=== PATIENT | female | born 1945 | race Caucasian/White ===

== ENCOUNTER 2022-12-04 09:12 | Inpatient (IN) | payer OTHER ==
--- OUTSIDE RECORDS SUMMARY | 2022-12-04 09:15 | XMS REPORT | Continuity of Care Document ---
:1945 Author Organization [facility] t Address [address] [place] [id number] Care Team Providers Name Role Phone SAURABH WHITESIDE Attending Clinician Unavailable SAURABH WHITESIDE Attending Clinician Unavailable Payers Payer Name Policy Type Policy Number Effective Date Expiration Date S nolberto MEDICARE PART A [id number] 2010 \T\ B 00:00:00 MEDICAID OF [place] [id number] 2017 00:00:00 Problems This patient has no known problems. Allergies, Adverse Reactions, Alerts Allergy Allergy Status Severity Reaction(s) Onset Inactive Treating Comm ents Source Name Type Date Date Clinician CODEINE DRUG Active Other-Cmnt Unive rs INGREDI 8-20 ity of 00:00: [address] DULOXETI DRUG Active Other-Cmnt 0 Univ ers NE INGREDI 8-20 ity of 00:00: [address] ERYTHROM DRUG Active Other-Cmnt Univ ers YCIN 8-20 ity of 00:00: [address] Medications This patient has no known medications. Procedures This patient has no known procedures. Encounters Start End Encounter Admission Attending Care Care Encounter Source Date/Time Date/Time Type Type Clinicians Facility Department ID 2020-01-25 2020-01-25 Outpatient SAURABH PEREZ [facility] [id number] [facility] 14:20:00 14:20:00 SAURABH WHITESIDE [facility] 2020-01-25 2020-01-25 Outpatient SAURABH PEREZ [facility] [id number] [facility] 14:20:00 14:20:00 SAURABH WHITESIDE [facility] Results This patient has no known results.
[2022-12-04] MEDS ORDERED: NA CHLORIDE 0.9% 1,000 ML ONE (09:59)
[2022-12-04 10:02] LABS: Absolute Lymphocytes (CBC) 0.5 K/uL (0.7-4.9); Hematocrit 35.8 % (36.0-45.0); Lymphocytes % 4.6 % (15.3-44.8); MCV 91.6 fL (80-100); MPV 9.8 fL (7.6-11.3); Platelets 131 thou/uL (152-406); RBC Red Blood Cell Count 3.91 M/uL (3.86-4.86)
[2022-12-04 10:03] LABS: Protime INR 1.1
[2022-12-04] MEDS ORDERED: FOLIC ACID 5 MG/ML VIAL ONE ×2 (10:04→10:07)
[2022-12-04] MEDS ORDERED: CEFTRIAXONE 1000 MG/VIAL ONE (10:04)
--- NOTE | 2022-12-04 10:10 | RAD REPORT ---
EXAM DESCRIPTION: CT - Head C Spine Cap Wo Con - 12/04/2022 9:53 am CLINICAL HISTORY: Trauma, head and neck injury. Chest, abdomen and pelvis pain. DECLINING STATE COMPARISON: No comparisons TECHNIQUE: CT head without contrast. CT cervical spine without contrast with coronal and sagittal reformatted images. CT chest, abdomen and pelvis without contrast with coronal and sagittal reformatted [facility] scans are performed using dose optimization technique as appropriate and may include automated exposure control or mA/KV adjustment according to patient size. FINDINGS: CT HEAD WITHOUT CONTRAST: No intracranial hemorrhage, hydrocephalus or extra-axial fluid collection. Mild generalized brain atr ophy is present with moderate periventricular and deep white matter chronic microvascular ischemic ch anges. No areas of brain edema or midline shift. The paranasal sinuses and mastoids are clear. The calvarium is intact. CT CERVICAL SPINE WITHOUT CONTRAST: No fracture or subluxation. Moderate multilevel cervical degenerative changes. The prevertebral soft tissues are normal in thickness. CT CHEST, ABDOMEN, PELVIS WITHOUT CONTRAST: NOTE: Lack of contrast is a significant limitation in the assessment of trauma related findings. Spec ifically, solid organ, vascular and bowel evaluation is significantly limited. The lungs are clear.No pneumothorax or pericardial/pleural fluid. No evidence of intra-abdominal visceral injury, free fluid or free air is seen within the above detai led limitations. Tiny nonobstructing right renal calculus. Prominent stool throughout the colon. No fractures. Grade 1 anterolisthesis of L4 on 5. IMPRESSION: Negative for acute traumatic findings within the above detailed limitations.
[2022-12-04 10:30] LABS: Renal Epithelial <5 /HPF (None Seen); Specific Gravity 1.011 (1.005-1.030); Urine Bacteria <20 /HPF (<20); Urine Bilirubin NEGATIVE (Negative); Urine Blood 2+ (Negative); Urine Clarity Extremely Turbid (Clear); Urine Color Yellow (Yellow); Urine Glucose NEGATIVE (Negative); Urine Mucus Slight /HPF (None Seen); Urine Protein 1+ (Negative); Urine Urobilinogen Normal (Normal); Urine WBC Clump Moderate /HPF (None Seen)
[2022-12-04 10:31] LABS: SARS-CoV-2 Antigen Rapid Res Negative (Negative)
[2022-12-04 10:32] LABS: AST/SGOT 21 U/L (15-37); Albumin 2.6 g/dL (3.4-5.0); Alkaline Phosphatase 113 U/L (45-117); BUN Blood Urea Nitrogen 27 mg/dL (7-18); Bicarbonate 24 mEq/L (21-32); Bilirubin Direct 0.4 mg/dL (0-0.2); Bilirubin Indirect, Calculated 0.4 mg/dL (0.2-0.8); Bilirubin Total 0.8 mg/dL (0.2-1.0); Glomerular Filtration Rate 48 ml/min (=/>90); Glucose Level 127 mg/dL (74-106); Lipase 10 U/L (13-75); NT PRO-BNP 245 pg/mL (<450); Protein, Total 6.8 g/dL (6.4-8.2); Sodium Level 139 mEq/L (136-145)
[2022-12-04 10:36] LABS: ALT/SGPT < 10 U/L (13-56)
--- NOTE | 2022-12-04 10:43 | RAD REPORT ---
EXAM DESCRIPTION: RAD - Chest Single View - 12/04/2022 10:33 am CLINICAL HISTORY: COUGH Chest pain. COMPARISON: <Comparisons> FINDINGS: Portable technique limits examination quality. The lungs are underinflated resulting in vascular crowding. The heart is mildly enlarged in size. No displaced fractures. IMPRESSION: Mildly underinflated lungs resulting in vascular crowding.
--- NOTE | 2022-12-04 11:14 | ER ---
Nurse's Notes [facility] Name: Sara Man Age: 77 yrs Sex: Female : 1945 Arrival Date: 12/04/2022 Time: 09:12 Bed 8 Private MD: Diagnosis: Altered mental status, unspecified;Dementia in other diseases classified elsewhere without behavioral disturbance;UTI/ Urinary tract infection, site not specified Presentation: 12/04 09:20 Chief complaint: EMS states: EMS was called to [facility] for a patient who ko1 had been experiencing altered mental status for the past 4 days, today seemed worse according to staff at [facility]. She is usually awake and alert, oriented x 3 and feeds herself. The past 4 days she has been confused and occasionally lethargic. Coronavirus screen: At this time, the client does not indicate any symptoms associated with coronavirus-19. Ebola Screen: No symptoms or risks identified at this time. Initial Sepsis Screen: Does the patient meet any 2 criteria? Altered Mental Status. No. Patient's initial sepsis screen is negative. Does the patient have a suspected source of infection? No. Patient's initial sepsis screen is negative. Risk Assessment: Do you want to hurt yourself or someone else? Patient reports no desire to harm self or others. Onset of symptoms is unknown. 09:20 Method Of Arrival: EMS: [facility] ko1 09:20 Acuity: IZABELA 3 ko1 Triage Assessment: 10:09 General: Appears ill, Behavior is anxious, uncooperative. Pain: Unable to use pain ko1 scale. Patient is disoriented. Neuro: Level of Consciousness is awake, alert, confused. Historical: - Allergies: 09:22 Codeine; ll1 09:22 Erythromycin; ll1 - PMHx: 09:22 GERD; depressive disorder; Dementia; Chronic pain; hemiplegia; Anxiety; Parkinson's ll1 disease; - Immunization history:: Adult Immunizations unknown. - Social history:: Smoking status: unknown. Screenin:20 [facility] ED Fall Risk Assessment (Adult) History of falling in the last 3 months, ko1 including since admission No falls in past 3 months (0 pts) Confusion or Disorientation Yes (5 pts) Intoxicated or Sedated No (0 pts) Impaired Gait Yes (1 pt) Mobility Assist Device Used Yes (1 pt) Altered Elimination Yes (1 pt) Score/Fall Risk Level 3 or more points = High Risk Oriented to surroundings, Maintained a safe environment, Educated pt \T\ family on fall prevention, incl call for assistance when getting out of bed, Assessed \T\ reinforced patient's understanding of fall precautions, Provided non-skid footwear, Hourly rounding (assess needs \T\ fall precautionary measures) done, Used ambulatory aids as needed (educated on \T\ assisted with), Used gait belt as appropriate Implemented a Fall Risk Plan of Care, Apply high fall risk patient identification: yellow non skid footwear/ fall signage, Remained with patient while ambulating, Utilized family, sitter, or virtual hot bread baker as indicated. Abuse screen: Denies threats or abuse. Denies injuries from another. Nutritional screening: No deficits noted. Tuberculosis screening: No symptoms or risk factors identified. Assessment: 09:20 Pain: Unable to use pain scale. Patient is disoriented. Neuro: Level of Consciousness ko1 is confused. Cardiovascular: No deficits noted. Respiratory: Respiratory effort is even, Respiratory pattern is regular, Breath sounds with wheezes bilaterally. GI: No deficits noted. : incontinent. EENT: Oral mucosa is dry. Derm: redness under breasts. Musculoskeletal: bilateral legs stiff. 10:35 Reassessment: Patient is sleeping, O2 sats are 90%, placed patient on 2L NC. ko1 10:45 Reassessment: Sats are now 96%. ko1 11:47 Reassessment: Patient appears in no apparent distress at this time. No changes from hb previously documented assessment. Vital Signs: 09:20 BP 121 / 65 RA Supine (auto/reg); Pulse 99; Resp 20; Temp 99.9(A); Pulse Ox 95% on R/A; ko1 10:35 BP 118 / 69; Pulse 85; Resp 18; Pulse Ox 90% ; ko1 10:44 Pulse Ox 96% on 2 lpm NC; ko1 11:47 BP 99 / 57; Pulse 73; Resp 15; Pulse Ox 97% on 2 lpm NC; hb ED Course: 09:19 Patient arrived in ED. ko1 09:20 Patient has correct armband on for positive identification. Placed in gown. Bed in low ko1 position. Call light in reach. Side rails up X2. Client placed on continuous cardiac and pulse oximetry monitoring. NIBP monitoring applied. personnel monitor on. Door closed. Noise minimized. Lights dimmed. Warm blanket given. 09:21 Cyrus Duke MD is Attending Physician. [facility] 09:22 Arm band placed on Patient placed in an exam room, on a stretcher. ll1 09:50 Maria A Interiano, RN is Primary Nurse. ko1 09:50 Urinalysis w/ reflexes Sent. ko1 09:50 Lipase Sent. ko1 09:50 Lactate w/ 2H reflex if indic. Sent. ko1 09:50 Blood Culture Adult (2) Sent. ko1 09:50 Inserted saline lock: 22 gauge in left hand, using aseptic technique. ko1 09:51 Basic Metabolic Panel Sent. ko1 09:51 CBC with Diff Sent. ko1 09:51 LFT's Sent. ko1 09:51 Magnesium Sent. ko1 09:51 NT PRO-BNP Sent. ko1 09:51 PT-INR Sent. ko1 09:51 Troponin HS Sent. ko1 09:54 CT Traumagram (Head C Spine CAP wo con) In Process Unspecified. EDMS 10:02 SARS RAPID Sent. ko1 10:02 Flu Sent. ko1 10:08 Triage completed. ko1 10:35 XRAY Chest (1 view) In Process Unspecified. EDMS 10:39 Urine Culture Sent. ko1 11:13 Amberly Prather MD is Hospitalizing Provider. [facility] 12:46 Provided Education on: na. ko1 12:46 No provider procedures requiring assistance completed. Patient admitted, IV remains in ko1 place. Administered Medications: 10:01 Drug: foLIC Acid IVPB 1 mg Route: IVPB; Site: left hand; ko1 10:02 Drug: NS 0.9% IV 500 ml Route: IV; Rate: bolus; Site: left hand; ko1 10:02 Drug: Rocephin IV 1 grams Route: IV; Rate: per protocol; Site: left hand; ko1 11:08 Drug: NS 0.9% IV 1000 ml Route: IV; Rate: 125 ml/hr; Site: left hand; ko1 Medication: 12:46 VIS not applicable for this client. ko1 Outcome: 11:13 Decision to Hospitalize by Provider. [facility] 12:46 Admitted to Med/surg accompanied by nurse, via stretcher, room 424, with chart, Report ko1 called to RAMIN Jalloh 12:46 Condition: stable 12:46 Instructed on the need for admit. 13:04 Patient left the ED. ko1 Signatures: Dispatcher [employer] EDCyrus Cavanaugh MD MD cha Baxter, Heather, RN RN Sonu Bill RN RN ll1 Maria A Interiano RN RN ko1 Corrections: (The following items were deleted from the chart) 11:48 11:47 BP 99 / 57; Pulse 73bpm; Resp 15bpm; Pulse Ox 97% RA; hb hb
--- NOTE | 2022-12-04 11:14 | EDPHYS ---
Physician Documentation [facility] Name: Sara Man Age: 77 yrs Sex: Female : 1945 Arrival Date: 12/04/2022 Time: 09:12 Bed 8 Private MD: ED Physician Cyrus Duke HPI: 12/04 11:07 This 77 yrs old Unknown Female presents to ER via EMS with complaints of Altered Mental melinda Status. 11:07 The patient presents with confusion, decreased mental status, trouble concentrating. melinda Onset: The symptoms/episode began/occurred 3 day(s) ago. Possible causes: CVA or TIA, head injury, low blood sugar, seizure, sepsis. Associated signs and symptoms: Pertinent positives: combativeness, confusion, dizziness. Current symptoms: In the emergency department the patient's symptoms are unchanged from the initial presentation, despite EMS interventions. Patient's baseline: Neuro: alert and fully oriented. It is unknown whether or not the patient has had similar symptoms in the past. Historical: - Allergies: 09:22 Codeine; ll1 09:22 Erythromycin; ll1 - PMHx: 09:22 GERD; depressive disorder; Dementia; Chronic pain; hemiplegia; Anxiety; Parkinson's ll1 disease; - Immunization history:: Adult Immunizations unknown. - Social history:: Smoking status: unknown. ROS: 11:09 Eyes: Negative for injury, pain, redness, and discharge, ENT: Negative for injury, melinda pain, and discharge, Neck: Negative for injury, pain, and swelling, Cardiovascular: Negative for chest pain, palpitations, and edema, Respiratory: Negative for shortness of breath, cough, wheezing, and pleuritic chest pain, Abdomen/GI: Negative for abdominal pain, nausea, vomiting, diarrhea, and constipation, Back: Negative for injury and pain, : Negative for injury, bleeding, discharge, and swelling, MS/Extremity: Negative for injury and deformity, Skin: Negative for injury, rash, and discoloration. 11:09 Constitutional: Positive for fever. 11:09 Neuro: Positive for altered mental status, weakness. Exam: 11:09 Constitutional: This is a well developed, well nourished patient who is awake, alert, melinda and in no acute distress. Head/Face: Normocephalic, atraumatic. Eyes: Pupils equal round and reactive to light, extra-ocular motions intact. Lids and lashes normal. Conjunctiva and sclera are non-icteric and not injected. Cornea within normal limits. Periorbital areas with no swelling, redness, or edema. ENT: Nares patent. No nasal discharge, no septal abnormalities noted. Tympanic membranes are normal and external auditory canals are clear. Oropharynx with no redness, swelling, or masses, exudates, or evidence of obstruction, uvula midline. Mucous membranes moist. Neck: Trachea midline, no thyromegaly or masses palpated, and no cervical lymphadenopathy. Supple, full range of motion without nuchal rigidity, or vertebral point tenderness. No Meningismus. Chest/axilla: Normal chest wall appearance and motion. Nontender with no deformity. No lesions are appreciated. Cardiovascular: Regular rate and rhythm with a normal S1 and S2. No gallops, murmurs, or rubs. Normal PMI, no JVD. No pulse deficits. Respiratory: Lungs have equal breath sounds bilaterally, clear to auscultation and percussion. No rales, rhonchi or wheezes noted. No increased work of breathing, no retractions or nasal flaring. Abdomen/GI: Soft, non-tender, with normal bowel sounds. No distension or tympany. No guarding or rebound. No evidence of tenderness throughout. Back: No spinal tenderness. No costovertebral tenderness. Full range of motion. Female : Normal external genitalia. Skin: Warm, dry with normal turgor. Normal color with no rashes, no lesions, and no evidence of cellulitis. MS/ Extremity: Pulses equal, no cyanosis. Neurovascular intact. Full, normal range of motion. Psych: Awake, alert, with orientation to person, place and time. Behavior, mood, and affect are within normal limits. 11:09 ECG was reviewed by the Attending Physician. 11:09 Neuro: Orientation: to person, Not oriented to place, time, situation, Mentation: confused, Memory: unable to test, Cranial nerves: no acute changes, CN II- XII are normal as tested, Cerebellar function: unable to test, Motor: moves all fours, Sensation: unable to test, Gait: not tested. seizure activity, is not displayed by the patient. Vital Signs: 09:20 BP 121 / 65 RA Supine (auto/reg); Pulse 99; Resp 20; Temp 99.9(A); Pulse Ox 95% on R/A; ko1 10:35 BP 118 / 69; Pulse 85; Resp 18; Pulse Ox 90% ; ko1 10:44 Pulse Ox 96% on 2 lpm NC; ko1 11:47 BP 99 / 57; Pulse 73; Resp 15; Pulse Ox 97% on 2 lpm NC; hb MDM: 09:21 Patient medically screened. melinda 11:11 Differential diagnosis: viral Infection, bacterial infection, URI, bronchitis, melinda pneumonia UTI, gastroenteritis, meningitis. Differential Diagnosis altered mental status, sepsis, flu. Differential Diagnosis: CVA, electrolyte abnormality, hypoglycemia, intracranial bleed, meningitis, overdose, pneumonia, seizure, sepsis, TIA, UTI, volume depletion. Data reviewed: vital signs, nurses notes, EMS record, lab test result(s), EKG, radiologic studies, CT scan, plain films. Consideration of Admission/Observation Escalation of care including admission/observation considered. I considered the following discharge prescriptions or medication management in the emergency department Medications were administered in the Emergency Department. See MAR. Test considered but Not performed: MRI: no mri brain. Care significantly affected by the following chronic conditions: Hypertension, gerd, depression, dementia, parkinsonism. Counseling: I had a detailed discussion with the patient and/or guardian regarding the historical points, exam findings, and any diagnostic results supporting the discharge/admit diagnosis, lab results, radiology results, the need for further work-up and treatment in the hospital. 12/04 09: Order name: Basic Metabolic Panel; Complete Time: 10:41 [facility] 12/04 09:31 Order name: CBC with Diff 12/04 09: Order name: LFT's; Complete Time: 10:41 [facility] 12/04 09:31 Order name: Magnesium; Complete Time: 10:41 [facility] 12/04 09:31 Order name: NT PRO-BNP; Complete Time: 10:41 [facility] 12/04 09:31 Order name: PT-INR; Complete Time: 10:41 [facility] 12/04 09:31 Order name: Troponin HS; Complete Time: 10:41 [facility] 12/04 09:31 Order name: Blood Culture Adult (2) [facility] 12/04 09: Order name: Lactate w/ 2H reflex if indic.; Complete Time: 10:41 [facility] 12/04 09:31 Order name: Lipase; Complete Time: 10:41 [facility] 12/04 09:31 Order name: Flu; Complete Time: 10:41 [facility] 12/04 09:31 Order name: SARS RAPID; Complete Time: 10:41 [facility] 12/04 09:45 Order name: Urinalysis w/ reflexes; Complete Time: 10:41 [facility] 12/04 10:38 Order name: Urine Culture [facility] 12/04 12:54 Order name: Manual Differential [facility] 12/04 09:31 Order name: XRAY Chest (1 view) [facility] 12/04 09:31 Order name: CT Traumagram (Head C Spine CAP wo con); Complete Time: 10:41 [facility] 12/04 09:31 Order name: EKG; Complete Time: 09:32 [facility] 12/04 09:31 Order name: Cardiac monitoring; Complete Time: 09:50 [facility] 12/04 09:31 Order name: EKG - Nurse/Tech; Complete Time: 10:25 [facility] 12/04 09:31 Order name: IV Saline Lock; Complete Time: 09:51 [facility] 12/04 09:31 Order name: Labs collected and sent; Complete Time: 09:51 [facility] 12/04 09:31 Order name: O2 Per Protocol; Complete Time: 09:51 [facility] 12/04 09:31 Order name: O2 Sat Monitoring; Complete Time: 09:51 [facility] EC:09 Rate is 88 beats/min. Rhythm is regular. QRS Pinnacle is Normal. VA interval is normal. QRS melinda interval is normal. QT interval is normal. No Q waves. T waves are Normal. No ST changes noted. Clinical impression: NSR w/ Non-specific ST/T Changes and No evidence of ischemia. Interpreted by me. Reviewed by me. Administered Medications: 10:01 Drug: foLIC Acid IVPB 1 mg Route: IVPB; Site: left hand; ko1 10:02 Drug: NS 0.9% IV 500 ml Route: IV; Rate: bolus; Site: left hand; ko1 10:02 Drug: Rocephin IV 1 grams Route: IV; Rate: per protocol; Site: left hand; ko1 11:08 Drug: NS 0.9% IV 1000 ml Route: IV; Rate: 125 ml/hr; Site: left hand; ko1 Disposition Summary: 12/04/22 11:13 Hospitalization Ordered Hospitalization Status: Inpatient Admission melinda Provider: Prather, Mohammad melinda Location: Telemetry/MedSurg (Inpatient) melinda Condition: Fair melinda Problem: new melinda Symptoms: have improved melinda Bed/Room Type: Standard melinda Room Assignment: 424(12/04/22 12:33) eb Diagnosis - Altered mental status, unspecified melinda - Dementia in other diseases classified elsewhere without behavioral disturbance melinda - UTI/ Urinary tract infection, site not specified melinda Forms: - Medication Reconciliation Form melinda - SBAR form melinda - Leadership Thank You Letter melinda Signatures: Dispatcher [employer] EDCyrus Cavanaugh MD MD cha Botello, Elizabeth eb Lewis, Lynsay, RN RN ll1 Maria A Interiano RN RN ko1 Corrections: (The following items were deleted from the chart) 12:33 11:13 melinda eb
[2022-12-04 12:53] LABS: Blood Morphology Comment NOT SEEN (NOT SEEN); Platelet Estimate DECR
--- NOTE | 2022-12-04 12:56 | P.HP ---
Certification for Inpatient Patient admitted to: Inpatient With expected LOS: <2 Midnights Practitioner: I am a practitioner with admitting privileges, knowledge of patient current condition, hospital course, and medical plan of care. Services: Services provided to patient in accordance with Admission requirements found in Title 42 Section 412.3 of the Code of Federal Regulations Patient History Date of Service: 12/04/22 Reason for admission: AMS, UTI History of Present Illness: 76-year-old female with a history of dementia, depression, chronic pain, hemiplegia, anxiety, GERD, Parkinson's disease, Came to the ER with complaints of altered mental status confusion and decreased mental status trouble concentrating started 3 days ago. Patient is negative for injury or fall. No shortness of breath, cough, fever, wheezing, chest pain. ER course vital signs blood pressure 121/65, pulse 99, respiration 20, temperature 99.9, pulse ox 95% on room air. EKG shows sinus rhythm without no arrhythmia, QRS axis is normal, TX interval is normal, QRS interval is normal QT interval is normal no Q wave changes, T waves are normal. No ST changes noted. Laboratory reports WBC 11.5 platelets 131, sodium 139 potassium 4 chloride 108, BUN 28, creatinine 1.17, GFR 48 blood sugar 127, positive urine analysis. Patient was given Rocephin 1 g IV in the ER and normal saline [address] head C-spine without contrast shows no fracture, moderate multilevel cervical degenerative changes. Negative for acute traumatic findings . Planning to admit the patient with a diagnosis of altered mental status, acute cystitis. Allergies codeine Allergy (Unverified 09/15/16 23:55) Unknown Erythromycin Allergy (Uncoded 09/15/16 23:55) Unknown Home medications list reviewed: Yes - Past Medical/Surgical History Diabetic: No -: GERD -: Parkinson's disease -: Dementia -: Impression and anxiety -: Chronic pain Review of Systems 10-point ROS is otherwise unremarkable General: Fever, Weakness Eyes: Unremarkable Respiratory: Unremarkable Neurological: Weakness, Confusion (Confusion, decreased mental status, trouble concentrating) Physical Examination - Physical Exam General: Alert, In no apparent distress HEENT: Atraumatic, Normocephalic, PERRLA Neck: Supple, 2+ carotid pulse no bruit Respiratory: Clear to auscultation bilaterally, Normal air movement Cardiovascular: Normal pulses, Regular rate/rhythm, Normal S1 S2, Edema (Edema 1+ on the lower extremities) Capillary refill: <2 Seconds Gastrointestinal: Normal bowel sounds, Soft and benign Integumentary: No rashes, No erythema Neurological: Dementia Urinary: Quiros catheter (Dark yellow urine draining in the Quiros cath) - Studies Laboratory Data (last 24 hrs) 12/04/22 12/04/22 12/04/22 09:40 09:40 09:40 WBC 11.50 H Hgb 12.3 Hct 35.8 L Plt Count 131 L PT 12.1 INR 1.10 Sodium 139 Potassium 4.0 BUN 27 H Creatinine 1.17 H Glucose 127 H Magnesium 2.0 Total Bilirubin 0.8 AST 21 ALT < 10 L Alkaline Phosphatase 113 Lipase 10 L Microbiology Data (last 24 hrs): 12/04/22 10:00 Nasopharnyx Influenza Type A Antigen Screen - Final 12/04/22 10:00 Nasopharnyx Influenza Type B Antigen Screen - Final Assessment and Plan - Plan Assessment and plan * Altered mental status, * Acute cystitis. 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 Dementia Assessment and plan * Altered mental status acute * Acute cystitis. 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 Urine analysis positive initially. Started on antibiotics and IV fluids. Pending blood and urine cultures. Will admit the patient for close monitoring. Repeat the CBC in the morning * GERD * Depression and anxiety * Parkinson's disease. Dementia Chronic, controlled on medications. Resume the home medications CODE STATUS full code DVT prophylaxis ordered Diet ordered 76-year-old female with a history of dementia depression chronic pain hemiplegia anxiety GERD Parkinson's disease. Came to the ER with complaints of ER course vital signs blood pressure 121/65, pulse 99, respiration 20, temperature 99.9, pulse ox 95% on room air. EKG shows sinus rhythm without no arrhythmia, QRS axis is normal, TX interval is normal, QRS interval is normal QT interval is normal no Q wave changes, T waves are normal. No ST changes noted. Laboratory reports WBC 11.5 platelets 131, sodium 139 potassium 4 chloride 108, BUN 28, creatinine 1.17, GFR 48 blood sugar 127, positive urine analysis. Patient was given Rocephin 1 g IV in the ER and normal saline [address] head C-spine without contrast shows no fracture, moderate multilevel cervical degenerative changes. Negative for acute traumatic findings . Planning to admit the patient with a diagnosis of altered mental status, dementia Discharge Plan: Jail Plan to discharge in: 48 Hours - Advance Directives Does patient have a Living Will: No Does patient have a Durable POA for Healthcare: No - Code Status/Comfort Care Code Status Assessed: Yes (Full code) Code Status: Full Code Physician Review: Patient Assessed, Agree with Above Assessment and Plan Critical Care: No Time Spent Managing Pts Care (In Minutes): 55 (minutes)
[2022-12-04 14:02] VITALS: BMI 33.5
[2022-12-04] MEDS ORDERED: CARBIDOPA/LEVODOPA 25/250 TAB PO ONE (16:00)
--- NOTE | 2022-12-04 17:20 | RAD REPORT ---
EXAM DESCRIPTION: RAD - Chest Single View - 12/04/2022 5:09 pm CLINICAL HISTORY: sob Chest pain. COMPARISON: Chest Single View dated 12/04/2022 FINDINGS: Portable technique limits examination quality. Mild interstitial pulmonary edema is present. The heart is mildly enlarged in size. 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 IMPRESSION: Mild CHF.
[2022-12-04] MEDS: NA CHLORIDE 0.9% 1,000 ML IV SCH (18:46)
[2022-12-04] MEDS ORDERED: CARBIDOPA/LEVODOPA 25/100 TAB PO SCH (21:00)
[2022-12-05] MEDS ORDERED: POLYVINYL ALCOHOL 1.4% 15 ML OPTH PRN (00:45)
[2022-12-05] MEDS ORDERED: ONDANSETRON 4 MG (ODT) TAB PO PRN (01:00)
[2022-12-05] MEDS: POTASSIUM CL SA 10 MEQ TAB PO SCH ×2 (08:00→16:29)
[2022-12-05] MEDS: CALCIUM CARB 500MG/VIT D 200 IU TAB PO SCH (08:23)
[2022-12-05] MEDS: CARBIDOPA/LEVODOPA 25/100 TAB PO SCH ×4 (08:23→21:18)
[2022-12-05] MEDS: TRAMADOL HCL 50 MG TAB PO SCH ×4 (08:23→21:14)
[2022-12-05] MEDS: MELOXICAM 7.5 MG TAB PO SCH (08:23)
[2022-12-05] MEDS ORDERED: CEFTRIAXONE 1,000 MG in NA CHLORIDE 0.9% 50 ML IVPB SCH (09:00)
[2022-12-05] MEDS ORDERED: OXYMETAZOLINE HCL NS SCH (09:00)
[2022-12-05] MEDS: NALOXONE HCL PO SCH ×2 (09:00→21:00)
[2022-12-05] MEDS ORDERED: MAGNESIUM HYDROXIDE 8% 30 ML PO PRN (09:00)
[2022-12-05] MEDS: PENTAZOCINE HCL PO SCH ×2 (09:00→21:00)
[2022-12-05] MEDS ORDERED: BACLOFEN 10 MG TAB PO ONE (15:19)
[2022-12-05] MEDS ORDERED: METHYLPREDNISOLONE 125 MG INJ IV ONE (15:20)
[2022-12-05] MEDS: NA CHLORIDE 0.9% 1,000 ML IV SCH (16:11)
--- NOTE | 2022-12-05 20:32 | P.PN ---
Subjective Date of Service: 12/05/22 Patient is a very pleasant 77-year-old female with a history of Parkinson disease who apparently lives at [facility] and she is able to feed herself with her right hand. She is also able to communicate effectively. She apparently had not taken her medications and got very aphasic and was not comm unicating. Patient became very stiff as well. Patient will show was sent to our emergency room for further evaluation. When I saw her on the floor she was just saying anything. Her arms were stiff and bent around her chest area. She was not able to move nor was she able to answer any questions. I asked the nurse to go ahead and give her her Parkinson's medications immediately. We crushed it and were able to put it in her mouth and she was able to take it down. A few hours later she started becoming more interactive and started moving a little bit better. Her upper extremities are still very stiff and we will get neurology to see the patient and make further recommendations. But patient cannot go without her Parkinson's medication. She also has a urinary tract infection. She will be on IV fluids and IV antibiotics. Patient was admitted to the hospital for further treatment. Review of Systems is unable to be obtained Physical Examination - Vital Signs Temperature: 97.7 F Blood Pressure: 130/60 Pulse: 89 Respirations: 16 Pulse Ox (%): 94 - Physical Exam General: Alert, In no apparent distress, Demented, Confused HEENT: Atraumatic, PERRLA, EOMI Neck: Supple, JVD not distended Respiratory: Clear to auscultation bilaterally, Normal air movement Cardiovascular: Regular rate/rhythm, Normal S1 S2, No murmurs Gastrointestinal: Normal bowel sounds, Soft and benign, Non-distended, No tenderness Musculoskeletal: No clubbing, No swelling, No tenderness Integumentary: No rashes Neurological: Sensation intact, Cranial nerves 3-12 intact, Other (Patient is interacting much more today. She still not able to feed herself so we will try to get her her baclofen as well as her Parkinson's medications. We will reassess her in the morning. Physical therapy and neurology input as well.), Abnormal speech Lymphatics: No axilla or inguinal lymphadenopathy - Studies Microbiology Data (last 24 hrs): 12/04/22 09:35 Blood - Blood Blood Culture Gram Stain - Final 12/04/22 09:35 Blood - Blood Gram Stain - Final 12/04/22 09:50 Blood - Blood Blood Culture Gram Stain - Final 12/04/22 09:50 Blood - Blood Gram Stain - Final Medications List Reviewed: Yes Assessment & Plan - Problems (Diagnosis) (1) Altered mental status Current Visit: Yes Status: Acute (2) History of Parkinson's disease Current Visit: Yes Status: Acute (3) Urinary tract infection Current Visit: Yes Status: Acute (4) Dementia Current Visit: Yes Status: Acute - Plan Plan: 1. Gentle hydration 2. IV antibiotics 3. Resume Sinemet 4. Continue with baclofen 5. Diet as tolerated 6. Antihypertensives 7. Monitor renal function 8. Aspiration precautions 9. Supportive care/skin care 10. GI DVT prophylaxis Discharge Plan: Long Term Plan to discharge in: 48 Hours - Advance Directives Does patient have a Living Will: No Does patient have a Durable POA for Healthcare: No - Code Status/Comfort Care Code Status: Full Code Physician Review: Patient Assessed, Agree with Above Assessment and Plan Critical Care: No Time Spent Managing PTS Care (In Minutes): 30
[2022-12-05] MEDS: OXYMETAZOLINE HCL 0.05% 15ML NAS SCH (21:14)
[2022-12-05] MEDS: BACLOFEN 10 MG TAB PO SCH (21:15)
[2022-12-06 07:21] LABS: Absolute Lymphocytes (CBC) 0.6 K/uL (0.7-4.9); Hematocrit 32.8 % (36.0-45.0); Lymphocytes % 3.9 % (15.3-44.8); MCV 91.3 fL (80-100); MPV 9.5 fL (7.6-11.3); Platelets 166 thou/uL (152-406); RBC Red Blood Cell Count 3.59 M/uL (3.86-4.86)
[2022-12-06 07:23] LABS: Magnesium 2.7 mg/dL (1.6-2.4)
[2022-12-06] MEDS: Meropenem 1,000 MG in NA CHLORIDE 0.9% 100 ML IV SCH ×2 (08:50→21:12)
[2022-12-06] MEDS: OXYMETAZOLINE HCL 0.05% 15ML NAS SCH ×2 (08:51→21:13)
[2022-12-06] MEDS: POTASSIUM CL SA 10 MEQ TAB PO SCH ×2 (08:52→17:24)
[2022-12-06] MEDS: BACLOFEN 10 MG TAB PO SCH ×3 (08:52→21:13)
[2022-12-06] MEDS: MELOXICAM 7.5 MG TAB PO SCH (08:52)
[2022-12-06] MEDS: CALCIUM CARB 500MG/VIT D 200 IU TAB PO SCH (08:52)
[2022-12-06] MEDS: TRAMADOL HCL 50 MG TAB PO SCH ×4 (08:52→21:13)
[2022-12-06] MEDS: PENTAZOCINE HCL PO SCH ×2 (08:53→21:00)
[2022-12-06] MEDS: NALOXONE HCL PO SCH ×2 (08:53→21:00)
[2022-12-06] MEDS: CARBIDOPA/LEVODOPA 25/100 TAB PO SCH ×4 (08:58→21:13)
--- NOTE | 2022-12-06 10:47 | P.CNS ---
Date of Consult: 12/06/22 Reason for Consult: ESBL UTI Chief Complaint: AMS, UTI History of Present Illness: Patient is a 76-year-old female with a past medical history of Parkinson's disease, dementia, depression, chronic pain, hemiplegia who presented [facility] the emergency department from [facility] due to altered mental status and confusion which began 3 days prior to arrival. Urinalysis suggestive of UTI. Blood and urine cultures obtained. Patient was given a dose of Rocephin in the ED. Infectious disease consulted. Patient was found to have bacteremia secondary to urinary tract infection with E. coli ESBL. She was started on meropenem. Allergies codeine Allergy (Verified 12/04/22 18:27) Unknown Erythromycin Allergy (Uncoded 09/15/16 23:55) Unknown Home medications list reviewed: Yes Home Medications: Alendronate Sodium 1 tab PO 12/04/22 Aspirin Chewable [Aspirin Chewable*] 1 tab PO DAILY 12/04/22 Baclofen 10 mg PO QID 12/04/22 Calcium Carbonate/Vitamin D3 [Oscal 500 + Vit D 200 Iu Tab*] 1 tab PO DAILY 12/04/22 Carbidopa/Levodopa [Carbidopa-Levodopa 25-100 Tab] 1 tab PO ACHS 12/04/22 Dextran/Hypromellose/Glycerin [Artificial Tears 0.1-0.2-0.3%] 1 drop EACH EYE Q6H PRN 12/04/22 Mag Hydroxide 8% [Milk Of Magnesia*] 30 ml PO PRN PRN 12/04/22 Meloxicam [Mobic] 7.5 mg PO DAILY 12/04/22 Ondansetron [Zofran (Odt)*] 1 tab PO Q8HR 12/04/22 Oxymetazoline HCl [Nasal [place]] 2 spray NS BID 12/04/22 Pentazocine HCl/Naloxone HCl [Pentazocine-Naloxone Tablet] 1 tab PO BID 12/04/22 Polyethylene Glycol 3350 [Miralax] 17 gm PO DAILY PRN 12/04/22 Potassium Chloride 20 meq PO BID 12/04/22 Sennosides/Docusate Sodium [Docuzen 8.6-50 mg Tablet] 1 tab PO DAILY 12/04/22 Tramadol HCl [Ultram] 50 mg PO QID 12/04/22 - Past Medical/Surgical History Diabetic: No -: GERD -: Parkinson's disease -: Dementia -: Impression and anxiety -: Chronic pain - Social History Smoking Status: Unknown if ever smoked Place of Residence: [facility]ust[facility]ial Review of Systems General: Weakness Physical Examination Temp Pulse Resp BP Pulse Ox 97.0 F 89 16 148/95 H 90 L 12/06/22 08:00 12/06/22 08:00 12/06/22 08:52 12/06/22 08:00 12/06/22 08:52 General: In no apparent distress, Oriented x3 HEENT: Atraumatic, Other (missing teeth) Respiratory: Normal air movement (on 2L NC), Diminished Cardiovascular: No edema, Normal S1 S2 Gastrointestinal: Normal bowel sounds, Soft and benign Integumentary: No rashes Neurological: Other (tremors; hx parkinsons), Dementia Urinary: Quiros catheter (draining yellow urine) Laboratory Data - Reviewed Microbiology Data - Reviewed Imagings Data: - Reviewed Conclusions/Impression: Problem list Sepsis secondary to UTI Bacteremia, E.coli ESBL Parkinson's Disease Dementia Depression GERD E. coli ESBL Bacteremia secondary to urinary tract infection -Given dose of ceftriaxone on 12/05 -Blood cultures 12/04: Escherichia coli ESBL in 4 of 4 bottles - Urine culture 12/04: Escherichia coli ESBL -Currently on meropenem (started 12/06) -Leukocytosis (WBC 16.3). Afebrile Recommendations Bacteremia secondary to urinary tract infection. Due to ESBL organism, continue with carbapenem antibiotic for 10 to 14 days - Currently on meropenem, continue for 10 to 14 days. -Monitor WBC and fever trends -Supportive care and nutritional supplementation as needed Plan of care discussed with patient and her son at bedside. Case discussed with Suzette Matthew
[2022-12-06] MEDS: NA CHLORIDE 0.9% 1,000 ML IV SCH (12:03)
--- NOTE | 2022-12-06 14:16 | P.PN ---
Subjective Date of Service: 12/06/22 Chief Complaint: AMS, UTI No acute events overnight. She is alert and oriented x 3 this morning. She reports some right upper extremity rigidness, which she attributes to missing a dose of carbidopa-levodopa. She denies any chest pain, palpitations, or shortness of breath. Review of Systems 10-point ROS is otherwise unremarkable General: Malaise Physical Examination - Vital Signs Temperature: 97.0 F Blood Pressure: 123/86 Pulse: 79 Respirations: 16 Pulse Ox (%): 96 - Physical Exam General: Alert, In no apparent distress, Oriented x3 HEENT: Atraumatic, Mucous membr. moist/pink, Sclerae nonicteric Neck: JVD not distended Respiratory: Clear to auscultation bilaterally, Normal air movement Cardiovascular: No edema, Regular rate/rhythm, Normal S1 S2, No gallops, No rubs, No murmurs Gastrointestinal: Normal bowel sounds, Soft and benign, Non-distended, No tenderness, No rebound, No guarding Musculoskeletal: No clubbing Integumentary: No rashes Neurological: Normal speech, Normal affect - Studies Microbiology Data (last 24 hrs): 12/04/22 09:49 Catheterized Urine Hardin Count - Final >100,000 CFU/ML. 12/04/22 09:49 Catheterized Urine - Final Escherichia Coli Esbl Gram Neg Hipolito 12/04/22 09:50 Blood - Blood Aerobic Blood Culture - Final Gram Neg Hipolito Escherichia Coli Esbl 12/04/22 09:50 Blood - Blood Blood Culture Gram Stain - Final 12/04/22 09:50 Blood - Blood Anaerobic Blood Culture - Final Gram Neg Hipolito Escherichia Coli Esbl 12/04/22 09:50 Blood - Blood Gram Stain - Final 12/04/22 09:35 Blood - Blood Aerobic Blood Culture - Final Gram Neg Hipolito Escherichia Coli Esbl 12/04/22 09:35 Blood - Blood Blood Culture Gram Stain - Final 12/04/22 09:35 Blood - Blood Anaerobic Blood Culture - Final Gram Neg Hipolito Escherichia Coli Esbl 12/04/22 09:35 Blood - Blood Gram Stain - Final Medications List Reviewed: Yes Assessment And Plan - Plan # Sepsis secondary to ESBL Escherichia Coli Urinary Tract Infection with Bact eremia # Acute Toxic Metabolic Encephalopathy due to above - resolved He met sepsis criteria based on HR > 90 bpm, RR > 20 breaths/min, and WBC > 12,000, and the suspected source is a UTI with bacteremia. - Consulted Infectious Diseases and spoke with CYBER REVERSE ENGINEER Sgarbi - recommendations appreciated - Sepsis order set was initiated - Initial Lactate was 1.2 - Blood cultures: 06/29 ESBL E. Coli - Broad spectrum antibiotics started: Ceftriaxone -> Meropenem - In regards to fluids: - 30 mL/kg of IV fluids was not administered given SBP > 90, MAP > 65, lactic acid < 4 # Parkinson's Disease # Dementia - Consulted Neurology - recommendations appreciated - Continue carbidopa/levodopa # Depression and Anxiety # Gastroesophageal Reflux Disease - Reconcile home medications once verified Demario Oneill M.D.
--- NOTE | 2022-12-06 17:12 | EKG ---
Test Date: 2022-12-04 Test Time: 10:21:45 All Source Collection Manager: HB MEASUREMENT RESULTS: Intervals: Rate: 88 MT: 142 QRSD: 88 QT: 354 QTc: 428 Point Baker: P: 68 MT: 142 QRS: -20 T: -17 INTERPRETIVE STATEMENTS: Normal sinus rhythm T wave abnormality, consider anterior ischemia Abnormal ECG Electronically Signed On 12-06-22 17:06:56 CDT by Wilmer Ward
[2022-12-07 04:29] LABS: Absolute Lymphocytes (CBC) 1.1 K/uL (0.7-4.9); Hematocrit 33.6 % (36.0-45.0); Lymphocytes % 6.8 % (15.3-44.8); MCV 92.1 fL (80-100); MPV 9.2 fL (7.6-11.3); Platelets 162 thou/uL (152-406); RBC Red Blood Cell Count 3.65 M/uL (3.86-4.86)
[2022-12-07 05:17] LABS: Potassium 4.3 mEq/L (3.5-5.1)
[2022-12-07] MEDS: Mupirocin NASAL 2 APPL/1 GM TUBE NAS SCH ×2 (08:01→21:35)
[2022-12-07] MEDS: CARBIDOPA/LEVODOPA 25/100 TAB PO SCH ×4 (08:01→21:35)
[2022-12-07] MEDS: MELOXICAM 7.5 MG TAB PO SCH (08:01)
[2022-12-07] MEDS: CALCIUM CARB 500MG/VIT D 200 IU TAB PO SCH (08:02)
[2022-12-07] MEDS: POTASSIUM CL SA 10 MEQ TAB PO SCH ×2 (08:02→16:33)
[2022-12-07] MEDS: TRAMADOL HCL 50 MG TAB PO SCH ×4 (08:02→21:35)
[2022-12-07] MEDS: Meropenem 1,000 MG in NA CHLORIDE 0.9% 100 ML IV SCH ×2 (08:02→21:35)
[2022-12-07] MEDS: BACLOFEN 10 MG TAB PO SCH ×3 (08:02→21:35)
[2022-12-07] MEDS: OXYMETAZOLINE HCL 0.05% 15ML NAS SCH ×2 (08:03→21:36)
[2022-12-07] MEDS: NA CHLORIDE 0.9% 1,000 ML IV SCH (08:03)
[2022-12-07] MEDS: PENTAZOCINE HCL PO SCH ×2 (08:04→21:00)
[2022-12-07] MEDS: NALOXONE HCL PO SCH ×2 (08:04→21:00)
[2022-12-07 08:51] VITALS: O2SAT 95
--- NOTE | 2022-12-07 08:53 | P.PN ---
Date of Service: 12/07/22 Chief Complaint: AMS, UTI Subjective: Patient seen and examined at bedside. No new or worsening complaints. No acute events reported overnight. Continue current plan of care. Physical Examination Temp Pulse Resp BP Pulse Ox 97.0 F 88 18 146/86 H 95 12/07/22 08:00 12/07/22 08:00 12/07/22 08:00 12/07/22 08:00 12/07/22 08:00 General: In no apparent distress, Oriented x3 HEENT: Atraumatic. Neck supple. Respiratory: Normal air movement. Diminished. On 2L NC. Cardiovascular: No edema, Normal S1 S2 Gastrointestinal: Normal bowel sounds, Soft and benign Integumentary: No rashes Neurological: Tremors (hx parkinsons). Dementia Urinary: Quiros catheter draining yellow urine Laboratory Data - Reviewed Microbiology Data - Reviewed Imagings Data: - Reviewed Medications List: Reviewed Assessment and plan Problem list Sepsis secondary to UTI Bacteremia, E.coli ESBL Parkinson's Disease Dementia Depression GERD E. coli ESBL Bacteremia secondary to urinary tract infection -Given dose of ceftriaxone on 12/05 -Blood cultures 12/04: Escherichia coli ESBL in 4 of 4 bottles - Urine culture 12/04: Escherichia coli ESBL -Currently on meropenem (started 12/06) -Leukocytosis (WBC 16.6). Afebrile Recommendations Bacteremia secondary to urinary tract infection. Due to ESBL organism, continue with carbapenem antibiotic for 14 days. (12/06-12/20) - Currently on meropenem -Monitor WBC and fever trends -Supportive care and nutritional supplementation as needed - Pressure offloading measures. Case discussed with Suzette Matthew
--- NOTE | 2022-12-07 20:00 | P.PN ---
Subjective Date of Service: 12/07/22 Chief Complaint: AMS, UTI No acute events overnight. PICC nurses are having difficulty placing PICC line due to upper extremity rigidity. Will discuss alternative options with Infectious Diseases. She denies any chest pain, palpitations, or shortness of breath. Review of Systems 10-point ROS is otherwise unremarkable Musculoskeletal: Other (upper extremity rigidity from Parkinsonism) Physical Examination - Vital Signs Temperature: 97.0 F Blood Pressure: 137/64 Pulse: 84 Respirations: 16 Pulse Ox (%): 95 - Physical Exam General: Alert, In no apparent distress, Oriented x3 HEENT: Atraumatic, Mucous membr. moist/pink, Sclerae nonicteric Neck: JVD not distended Respiratory: Clear to auscultation bilaterally, Normal air movement Cardiovascular: No edema, Regular rate/rhythm, No murmurs Gastrointestinal: Normal bowel sounds, Soft and benign, No tenderness Musculoskeletal: No clubbing, Other (bilateral upper extremity cogwheel rigidity due to Parkinson's disease) Neurological: Normal speech, Normal affect - Studies Medications List Reviewed: Yes Assessment And Plan - Plan # Sepsis secondary to ESBL Escherichia Coli Urinary Tract Infection with Bacteremia # Acute Toxic Metabolic Encephalopathy due to above - resolved She met sepsis criteria based on HR > 90 bpm, RR > 20 breaths/min, and WBC > 12,000, and the suspected source is a UTI with bacteremia. - Consulted Infectious Diseases and spoke with INDUSTRIAL SEAMSTRESS Mary - recommendations appreciated - PICC nurses having difficulty placing PICC due to upper extremity rigidity, will discuss alternative options including mid-line vs IM ertapenem - Sepsis order set was initiated - Initial Lactate was 1.2 - Blood cultures: 06/29 ESBL E. Coli - Broad spectrum antibiotics started: Ceftriaxone -> Meropenem - In regards to fluids: - 30 mL/kg of IV fluids was not administered given SBP > 90, MAP > 65, lactic acid < 4 # Parkinson's Disease # Dementia - Consulted Neurology and spoke with Dr. Giordano - recommendations appreciated - Continue carbidopa/levodopa # Depression and Anxiety # Gastroesophageal Reflux Disease - Reconcile home medications once verified Demario Oneill M.D.
[2022-12-08] MEDS: NA CHLORIDE 0.9% 1,000 ML IV SCH (03:00)
[2022-12-08 04:21] LABS: Hematocrit 33.4 % (36.0-45.0); Lymphocytes % 10.5 % (15.3-44.8); MCV 91.2 fL (80-100); MPV 8.8 fL (7.6-11.3); Platelets 198 thou/uL (152-406); RBC Red Blood Cell Count 3.66 M/uL (3.86-4.86)
[2022-12-08 04:40] LABS: Potassium 4.5 mEq/L (3.5-5.1)
[2022-12-08 05:43] LABS: Blood Morphology Comment NOT SEEN (NOT SEEN); Platelet Estimate ADEQ
[2022-12-08] MEDS: MELOXICAM 7.5 MG TAB PO SCH (07:27)
[2022-12-08] MEDS: OXYMETAZOLINE HCL 0.05% 15ML NAS SCH (07:27)
[2022-12-08] MEDS: CARBIDOPA/LEVODOPA 25/100 TAB PO SCH ×2 (07:27→11:53)
[2022-12-08] MEDS: TRAMADOL HCL 50 MG TAB PO SCH ×2 (07:27→11:53)
[2022-12-08] MEDS: POTASSIUM CL SA 10 MEQ TAB PO SCH (07:28)
[2022-12-08] MEDS: BACLOFEN 10 MG TAB PO SCH ×2 (07:28→14:08)
[2022-12-08] MEDS: Meropenem 1,000 MG in NA CHLORIDE 0.9% 100 ML IV SCH (07:28)
[2022-12-08] MEDS: CALCIUM CARB 500MG/VIT D 200 IU TAB PO SCH (07:28)
[2022-12-08] MEDS: Mupirocin NASAL 2 APPL/1 GM TUBE NAS SCH (07:28)
[2022-12-08] MEDS: PENTAZOCINE HCL PO SCH (07:29)
[2022-12-08] MEDS: NALOXONE HCL PO SCH (07:29)
--- NOTE | 2022-12-08 08:46 | P.PN ---
Date of Service: 12/08/22 Chief Complaint: AMS, UTI Subjective: Patient seen and examined at bedside. In no apparent distress. Reports difficulty sleeping last night. Otherwise no worsening complaints. Physical Examination Temp Pulse Resp BP Pulse Ox 98.0 F 84 14 128/63 93 12/08/22 07:15 12/08/22 07:15 12/08/22 07:15 12/08/22 07:15 12/08/22 07:15 General: In no apparent distress, Oriented x3 HEENT: Atraumatic. Neck supple. Respiratory: Normal air movement. Diminished. On 2L NC. Cardiovascular: No edema, Normal S1 S2 Gastrointestinal: Normal bowel sounds, Soft and benign Integumentary: No rashes Neurological: Tremors (hx parkinsons). Dementia Urinary: Quiros catheter draining yellow urine Laboratory Data - Reviewed Microbiology Data - Reviewed Imagings Data: - Reviewed Medications List: Reviewed Assessment and plan Problem list Sepsis secondary to UTI Bacteremia, E.coli ESBL Parkinson's Disease Dementia Depression GERD E. coli ESBL Bacteremia secondary to urinary tract infection -Given dose of ceftriaxone on 12/05 -Blood cultures 12/04: Escherichia coli ESBL in 4 of 4 bottles - Urine culture 12/04: Escherichia coli ESBL -Currently on meropenem (started 12/06) -Leukocytosis resolved (WBC 16.6 -> 9.9). Afebrile Recommendations Bacteremia secondary to urinary tract infection. Due to ESBL organism, continue with carbapenem antibiotic for 10 days. - Currently on meropenem. Due to contractures, PICC line not placed. -> switch to Ertapenem 1g IM q24h to complete remainder of antibiotic course. -Monitor WBC and fever trends -Supportive care and nutritional supplementation as needed - Pressure offloading measures. Case discussed with Suzette Matthew
[2022-12-08] MEDS ORDERED: Meropenem 1,000 MG in NA CHLORIDE 0.9% 100 ML IV SCH (09:00)
--- NOTE | 2022-12-08 14:26 | P.DS ---
Admission Date: 12/04/22 Discharge Date: 12/08/22 Disposition: TRANSFER TO CARE HOME Comment: [facility] Discharge Condition: GOOD Reason for Admission: AMS, UTI Consultations: 1. Neurology 2. Infectious Diseases Hospital Course: DIAGNOSES: # Sepsis secondary to ESBL Escherichia Coli Urinary Tract Infection with Bacteremia # Acute Toxic Metabolic Encephalopathy due to above - resolved # Parkinson's Disease # Dementia # Depression and Anxiety # Gastroesophageal Reflux Disease HOSPITAL COURSE: Ms. Sara Man is a pleasant 77 year old female with a past medical history significant for Parkinson's disease, dementia, depression, anxiety, and gastroesophageal reflux disease who was admitted to the [facility] on 12/04/2022 for altered mental status. She was admitted to the Medicine service. Upon further evaluation, she was found to have sepsis secondary to a urinary tract infection with bacteremia as well as acute toxic metabolic encephalopathy. She was initially started on ceftriaxone, but her urine and blood cultures returned positive for ESBL Escherichia Coli. Her antibiotics were changed to meropenem, with significant improvement in her mental status. Infectious Diseases was consulted and she was evaluated by Dr. Leahy. The initial plan was for PICC line placement and IV antibiotics; however, due to her significant upper extremity cogwheel rigidity, we were unable to place a PICC line. We discussed alternative options, such as a mid- line and central line, but these were thought to be nonviable options. Dr. Leahy recommended IM ertapenem to complete her antibiotic course. From an Infectious Diseases standpoint, he has cleared her for discharge back to [facility]. On 12/08/2022, she was seen on morning rounds and deemed medically stable for discharge. She was discharged with instructions to schedule follow-up appointme nts with her PCP and with Neurology (Dr. Giordano). She was given the opportunity to ask questions and reported no further questions. Furthermore, all questions were answered to the best of my ability. A copy of this discharge summary will be sent to the above providers to facilitate continuity of care. Today, I personally spent 25 minutes on her case, of which greater than 50% of the time was spent in patient education, counseling, and coordination of care as described above. - Physical Exam General: Alert, In no apparent distress, Oriented x3 HEENT: Atraumatic, Mucous membr. moist/pink, Sclerae nonicteric Respiratory: Clear to auscultation bilaterally, Normal air movement Cardiovascular: No edema, Regular rate/rhythm, No murmurs Gastrointestinal: Normal bowel sounds, Soft and benign, No tenderness Musculoskeletal: No clubbing, Other (bilateral upper extremity cogwheel rigidity due to Parkinson's disease) Neurological: Normal speech, Normal affect Vital Signs/Physical Exam: Temp Pulse Resp BP Pulse Ox 97.3 F 86 14 125/72 95 12/08/22 12:00 12/08/22 12:00 12/08/22 12:53 12/08/22 12:00 12/08/22 12:53 Laboratory Data at Discharge: WBC 9.90 thou/uL (4.3-10.9) 12/08/22 03:52 Hgb 11.4 g/dL (12.0-15.0) L 12/08/22 03:52 Hct 33.4 % (36.0-45.0) L 12/08/22 03:52 Plt Count 198 thou/uL (152-406) 12/08/22 03:52 PT 12.1 SECONDS (9.5-12.5) 12/04/22 09:40 INR 1.10 12/04/22 09:40 Sodium 138 mEq/L (136-145) 12/08/22 03:52 Potassium 4.5 mEq/L (3.5-5.1) 12/08/22 03:52 BUN 26 mg/dL (7-18) H 12/08/22 03:52 Creatinine 0.78 mg/dL (0.55-1.02) 12/08/22 03:52 Glucose 102 mg/dL (74-106) 12/08/22 03:52 Magnesium 2.7 mg/dL (1.6-2.4) H 12/06/22 06:36 Total Bilirubin 0.8 mg/dL (0.2-1.0) 12/04/22 09:40 AST 21 U/L (15-37) 12/04/22 09:40 ALT < 10 U/L (13-56) L 12/04/22 09:40 Alkaline Phosphatase 113 U/L (45-117) 12/04/22 09:40 Lipase 10 U/L (13-75) L 12/04/22 09:40 Home Medications: Alendronate Sodium 1 tab PO 12/04/22 Aspirin Chewable [Aspirin Chewable*] 1 tab PO DAILY 12/04/22 Baclofen 10 mg PO QID 12/04/22 Calcium Carbonate/Vitamin D3 [Oscal 500 + Vit D 200 Iu Tab*] 1 tab PO DAILY 12/04/22 Carbidopa/Levodopa [Carbidopa-Levodopa 25-100 Tab] 1 tab PO ACHS 12/04/22 Dextran/Hypromellose/Glycerin [Artificial Tears 0.1-0.2-0.3%] 1 drop EACH EYE Q6H PRN 12/04/22 Mag Hydroxide 8% [Milk Of Magnesia*] 30 ml PO PRN PRN 12/04/22 Meloxicam [Mobic] 7.5 mg PO DAILY 12/04/22 Ondansetron [Zofran (Odt)*] 1 tab PO Q8HR 12/04/22 Oxymetazoline HCl [Nasal Vacherie] 2 spray NS BID 12/04/22 Pentazocine HCl/Naloxone HCl [Pentazocine-Naloxone Tablet] 1 tab PO BID 12/04/22 Polyethylene Glycol 3350 [Miralax] 17 gm PO DAILY PRN 12/04/22 Potassium Chloride 20 meq PO BID 12/04/22 Sennosides/Docusate Sodium [Docuzen 8.6-50 mg Tablet] 1 tab PO DAILY 12/04/22 Tramadol HCl [Ultram] 50 mg PO QID 12/04/22 Physician Discharge Instructions: 1. Please call and schedule a follow-up appointment with your PCP in 3-5 days - Your urine sample contained a small amount of blood, possibly related to your UTI. Please follow-up with your PCP for further evaluation. 2. Please call and schedule a follow-up appointment with Neurology (Dr. Giordano) in 5-7 days - Please follow-up with your PCP for medication refills/adjustments Diet: Regular Activity: Fall precautions Followup: NONE,NONE [Primary Care Provider] - Kenan Giordano MD [ASSOCIATE-ACTIVE - CAN ADMIT] - Time spent managing pt's care (in minutes): 25
[2022-12-08 16:08] VITALS: BP 140/63; TEMP 97
== END 2022-12-08 16:36 | DRG 698 ==
LOC: ER 09:12 → ERHOLD 11:44 → 4TH 12:48
PROVIDERS: ADMIT Hospitalist; ATTEND Internal Medicine
DX: T83.518A Infection and inflammatory reaction due to other urinary catheter, initial encounter (principal); A41.51 Sepsis due to Escherichia coli [E. coli]; G92.8 Other toxic encephalopathy; F02.83 Dementia in other diseases classified elsewhere, unspecified severity, with mood disturbance; N30.00 Acute cystitis without hematuria; F02.84 Dementia in other diseases classified elsewhere, unspecified severity, with anxiety; Z16.12 Extended spectrum beta lactamase (ESBL) resistance; G20 Parkinson's disease; G89.29 Other chronic pain; K21.9 Gastro-esophageal reflux disease without esophagitis; Z88.5 Allergy status to narcotic agent; Z88.1 Allergy status to other antibiotic agents; Z20.822 Contact with and (suspected) exposure to COVID-19
CPT/HCPCS: 36415; 70450; 71045; 71250; 72125; 80048; 80076; 81001; 82947; 83605; 83690; 83735; 83880; 84484; 85025; 85610; 87040; 87077; 87086; 87088; 87186; 87205; 87635; 87804; 87811; 93005; 96374; 96375; 99285; J0696; J2185; J2930; J7030

== ENCOUNTER 2023-01-21 10:42 | Inpatient (IN) | payer OTHER ==
--- OUTSIDE RECORDS SUMMARY | 2023-01-21 10:45 | XMS REPORT | Continuity of Care Document ---
:1945 Author Organization [facility] t Address [address] [place] [address] Care Team Providers Name Role Phone JULIÁN ENGEL Primary Care Physician Unavailable SAURABH WHITESIDE Attending Clinician Unavailable SAURABH WHITESIDE Attending Clinician Unavailable Payers Payer Name Policy Type Policy Number Effective Date Expiration Date S nolberto MEDICARE PART A [id number] 2010 \T\ B 00:00:00 MEDICAID [place] [id number] 2017 00:00:00 Problems This patient has no known problems. Allergies, Adverse Reactions, Alerts Allergy Allergy Status Severity Reaction(s) Onset Inactive Treating Comm ents Source Name Type Date Date Clinician CODEINE DRUG Active Other-Cmnt 2018-0 Unive rs INGREDI 8-20 ity of 00:00: [address] DULOXETI DRUG Active Other-Cmnt 0 Univ ers NE INGREDI 8-20 ity of 00:00: [address] ERYTHROM DRUG Active Other-Cmnt 2017-0 Univ ers YCIN 8-20 ity of 00:00: [address] Medications This patient has no known medications. Procedures This patient has no known procedures. Encounters Start End Encounter Admission Attending Care Care Encounter Source Date/Time Date/Time Type Type Clinicians Facility Department ID 2020-01-25 2020-01-25 Outpatient SAURABH PEREZ [facility] [id number] Univers 14:20:00 14:20:00 SAURABH WHITESIDE [facility] 2020-01-25 2020-01-25 Outpatient SAURABH PEREZ [facility] [id number] Univers 14:20:00 14:20:00 SAURABH WHITESIDE [facility] Results This patient has no known results.
[2023-01-21 11:32] LABS: Absolute Lymphocytes (CBC) 1.4 K/uL (0.7-4.9); Hematocrit 38.4 % (36.0-45.0); Lymphocytes % 17.3 % (15.3-44.8); MCV 90.1 fL (80-100); MPV 8.6 fL (7.6-11.3); Platelets 246 thou/uL (152-406); RBC Red Blood Cell Count 4.26 M/uL (3.86-4.86)
--- NOTE | 2023-01-21 11:34 | RAD REPORT ---
EXAM DESCRIPTION: CT - Head Brain Wo Cont - 01/21/2023 10:56 am CLINICAL HISTORY: ams Headache, drowsiness COMPARISON: Head Brain Wo Cont dated 10/18/2022 TECHNIQUE: All CT scans are performed using dose optimization technique as appropriate and may inclu de automated exposure control or mA/KV adjustment according to patient size. FINDINGS: No intracranial hemorrhage, hydrocephalus or extra-axial fluid collection.Mild generalized brain atrophy is present with moderate periventricular and deep white matter chronic microvascular i schemic changes.No areas of brain edema or evidence of midline shift. The paranasal sinuses and mastoids are clear. The calvarium is intact. IMPRESSION: No acute intracranial abnormality.
[2023-01-21] MEDS ORDERED: Meropenem 1000 MG/VIAL IV ONE (11:36)
[2023-01-21] MEDS ORDERED: NA CHLORIDE 0.9% 100 ML ONE (11:36)
[2023-01-21] MEDS ORDERED: NA CHLORIDE 0.9% 0 ML ONE (11:37)
[2023-01-21 11:39] LABS: Protime INR 1.05
[2023-01-21 11:52] LABS: AST/SGOT 16 U/L (15-37); Albumin 3.4 g/dL (3.4-5.0); Alkaline Phosphatase 100 U/L (45-117); BUN Blood Urea Nitrogen 15 mg/dL (7-18); Bicarbonate 31 mEq/L (21-32); Bilirubin Total 0.4 mg/dL (0.2-1.0); Glomerular Filtration Rate 44 ml/min (=/>90); Glucose Level 131 mg/dL (74-106); Potassium 2.9 mEq/L (3.5-5.1); Protein, Total 7.1 g/dL (6.4-8.2); Sodium Level 145 mEq/L (136-145)
[2023-01-21 11:56] LABS: ALT/SGPT < 10 U/L (13-56)
--- NOTE | 2023-01-21 12:09 | RAD REPORT ---
EXAM DESCRIPTION: RAD - Chest Single View - 01/21/2023 11:45 am CLINICAL HISTORY: FEVER Chest pain. COMPARISON: Chest Single View dated 12/04/2022; Chest Single View dated 12/04/2022 FINDINGS: Portable technique limits examination quality. Mild interstitial prominence is seen bilaterally probably representing mild interstitial pulmonary ed joe. The heart is moderately enlarged in size. No displaced fractures. IMPRESSION: Mild interstitial prominence is is noted which is nonspecific but can be seen in a viral infection or interstitial pulmonary edema.
--- NOTE | 2023-01-21 13:35 | EDPHYS ---
Physician Documentation [facility] Name: Sara Man Age: 77 yrs Sex: Female : 1945 Arrival Date: 01/21/2023 Time: 10:42 Bed 6 Private MD: ED Physician Alvaro Gauthier HPI: 01/21 11:53 This 77 yrs old Female presents to ER via EMS with complaints of Altered Mental Status. rt 11:53 History limited due to patient with altered mental status, baseline dementia. Patient rt presents to the ED from [facility] for altered mental status, less responsive compared to usual. Patient reportedly nonverbal at baseline. The patient was recently admitted for UTI, reportedly febrile. Denies other acute complaints at this time, symptoms are moderate severity, no other aggravating or alleviating factors.. Historical: - Allergies: 11:04 Codeine; tm6 11:04 Erythromycin; tm6 - PMHx: 11:04 Anxiety; Chronic pain; Dementia; depressive disorder; GERD; hemiplegia; Parkinson's tm6 disease; - Immunization history:: Adult Immunizations up to date. - Social history:: Smoking status: unknown. - Family history:: not pertinent. ROS: 11:53 Unable to obtain ROS due to altered mental status, baseline dementia, rt Exam: 11:53 Head/Face: Normocephalic, atraumatic. Chest/axilla: Normal chest wall appearance and rt motion. Nontender with no deformity. No lesions are appreciated. Cardiovascular: Regular rate and rhythm with a normal S1 and S2. No gallops, murmurs, or rubs. Normal PMI, no JVD. No pulse deficits. Respiratory: Lungs have equal breath sounds bilaterally, clear to auscultation and percussion. No rales, rhonchi or wheezes noted. No increased work of breathing, no retractions or nasal flaring. Abdomen/GI: Soft, non-tender, with normal bowel sounds. No distension or tympany. No guarding or rebound. No evidence of tenderness throughout. 11:53 Neuro: Awake but nonverbal, poorly responsive, cogwheel rigidity noted on all extremities., 13:31 ECG was reviewed by the Attending Physician. rt Vital Signs: 10:59 BP 120 / 58; Pulse 96; Resp 24; Pulse Ox 92% on R/A; tm6 10:59 Temp 100.2(A); tm6 12:15 BP 110 / 64; Pulse 79; Resp 16; Pulse Ox 95% on 1 lpm NC; me1 13:30 BP 102 / 67; Pulse 92; Resp 17; Pulse Ox 94% on 1 lpm NC; me1 14:45 BP 112 / 72; Pulse 79; Resp 15; Pulse Ox 97% on 1 lpm NC; me1 15:30 BP 108 / 71; Pulse 9; Resp 16; Pulse Ox 96% on 1 lpm NC; me1 16:54 BP 105 / 68; Pulse 89; Resp 16; Pulse Ox 95% on 1 lpm NC; me1 MDM: 10:43 Patient medically screened. rt 10:44 Patient medically screened. melinda 13:31 Differential Diagnosis: volume depletion, Sepsis, CVA. Data reviewed: vital signs, rt nurses notes, old medical records, Patient had resistant UTI, susceptible to Merrem lab test result(s), EKG, radiologic studies. Consideration of Admission/Observation Patient was admitted/placed on observation. Management of patient was discussed with the following: Hospitalist: Agrees to admit. I considered the following discharge prescriptions or medication management in the emergency department Medications were administered in the Emergency Department. See MAR. Independent interpretation of the following test(s) in the Emergency Department CT Scan: My interpretation is No hemorrhage seen on interpretation of CT scan images. Care significantly affected by the following chronic conditions: Parkinson's disease. Counseling: I had a detailed discussion with the patient and/or guardian regarding the historical points, exam findings, and any diagnostic results supporting the discharge/admit diagnosis, lab results, radiology results. 01/21 10:44 Order name: Blood Culture Adult (2) rt 01/21 10:44 Order name: CBC with Diff; Complete Time: 12:10 rt 01/21 10:44 Order name: CMP; Complete Time: 12:10 rt 01/21 10:44 Order name: Lactate w/ 2H reflex if indic.; Complete Time: 12:10 rt 01/21 10:44 Order name: Protime (+inr); Complete Time: 12:10 rt 01/21 10:44 Order name: Ptt, Activated; Complete Time: 12:10 rt 01/21 10:44 Order name: Urinalysis w/ reflexes; Complete Time: 14:25 rt 01/21 11:56 Order name: Glucose, Ancillary Testing; Complete Time: 12:10 EDMS 01/21 14:02 Order name: Urine Culture EDMS 01/21 14:59 Order name: Lactate Sepsis 2 HR Follow-up EDMS 01/21 10:44 Order name: Chest Single View XRAY; Complete Time: 12:10 rt 01/21 10:44 Order name: CT Head Brain wo Cont; Complete Time: 12:10 rt 01/21 10:44 Order name: EKG; Complete Time: 10:45 rt 01/21 10:44 Order name: Accucheck; Complete Time: 11:45 rt 01/21 10:44 Order name: Cardiac monitoring; Complete Time: 10:57 rt 01/21 10:44 Order name: EKG - Nurse/Tech rt 01/21 10:44 Order name: IV Saline Lock - Large Bore; Complete Time: 10:57 rt 01/21 10:44 Order name: Labs collected and sent; Complete Time: 11:41 rt 01/21 10:44 Order name: O2 Per Protocol; Complete Time: 10:57 rt 01/21 10:44 Order name: O2 Sat Monitoring; Complete Time: 10:57 rt 01/21 10:44 Order name: Vital Signs; Complete Time: 11:10 rt EC:31 Rate is 100 beats/min. Rhythm is regular with Regular rhythm, tremor artifact severely rt limits EKG interpretation. Administered Medications: 11:10 Drug: NS 0.9% IV 1000 ml IV at 1 bolus Per protocol; 1000 mL bolus Route: IV; Rate: 1 ld1 bolus; Site: right hand; 12:25 Follow up: IV Status: Completed infusion me1 11:30 Drug: Meropenem IV 1 grams IV at calculated rate once; (mix in NS 100 mL) Route: IV; tm6 Rate: calculated rate; Site: right hand; 12:17 Follow up: Response: No adverse reaction; IV Status: Completed infusion me1 12:27 Not Given (Duplicate Order): potassium chlorideliquid 40 meq PO once rt 13:31 Drug: Potassium Chloride IV 40 mEq IV at 40 calculated rate once; administer over 4 me1 hours Route: IV; Rate: 40 calculated rate; Site: right hand; 16:54 Follow up: IV Status: Infusion continued upon transfer me1 15:04 Drug: NS 0.9% IV 1000 ml IV at 100 ml/hr continuous Route: IV; Rate: 100 ml/hr; Site: [facility] right hand; 16:54 Follow up: IV Status: Infusion continued upon transfer [facility] Disposition: 13:36 Critical Care:. rt Disposition Summary: 01/21/23 13:34 Hospitalization Ordered Notes: Hospitalization Status: Inpatient Admission rt Provider: Cong Soriano rt [facility] rt Condition: Fair rt Problem: new rt Symptoms: have improved rt Bed/Room Type: Standard rt Room Assignment: 204(01/21/23 15:42) eb Diagnosis - Severe sepsis without septic shock rt - Altered mental status, unspecified rt - Hypokalemia rt Forms: - Medication Reconciliation Form rt - SBAR form rt - Leadership Thank You Letter rt Critical care time excluding procedures: 13:36 Critical care time: Bedside Care: 30 minutes, Consultation: 5 minutes. Total time: 35 rt minutes Signatures: Dispatcher [employer] Cyrus Leija MD MD cha Attema, Lee, PRISON LIBRARIAN-C PRISON LIBRARIAN-Cla1 Riya Cast Lauren, RN RN ld1 Alvaro Gauthier MD MD rt Riya Rosas, RN RN me1 Pedro Casper RN RN tm6 Corrections: (The following items were deleted from the chart) 15:42 13:34 rt eb
--- NOTE | 2023-01-21 13:35 | ER ---
Nurse's Notes [facility] Name: Sara Man Age: 77 yrs Sex: Female : 1945 Arrival Date: 01/21/2023 Time: 10:42 Bed 6 Private MD: Diagnosis: Severe sepsis without septic shock;Altered mental status, unspecified;Hypokalemia Presentation: 01/21 10:59 Chief complaint: EMS states: AMS x1 week -- since d/c from hospital for UTI. tm6 Coronavirus screen: Vaccine status: Patient reports receiving the 2nd dose of the covid vaccine. Client denies travel out of the [place] in the last 14 days. Client indicates they have traveled out of the [place] in the last 14 days. Ebola Screen: Patient negative for fever greater than or equal to 101.5 degrees Fahrenheit, and additional compatible Ebola Virus Disease symptoms Patient denies exposure to infectious person. Patient denies travel to an Ebola-affected area in the 21 days before illness onset. No symptoms or risks identified at this time. Initial Sepsis Screen: Does the patient meet any 2 criteria? RR > 20 per min. Temp <36.0*C (96.8*F)) or > 38.3*C (100.9*F). Altered Mental Status. HR > 90 bpm. Yes Does the patient have a suspected source of infection? No. Patient's initial sepsis screen is negative. Risk Assessment: Do you want to hurt yourself or someone else? Patient reports no desire to harm self or others. Onset of symptoms was January 21, 2023. 10:59 Method Of Arrival: EMS: [facility] 10:59 Acuity: IZABELA 3 tm6 Triage Assessment: 11:04 General: Appears uncomfortable, Behavior is calm, contracted, non-verbal. Pain: Denies tm6 pain. EENT: No signs and/or symptoms were reported regarding the EENT system. Neuro: Level of Consciousness is awake, stuporous, Oriented to non-verbal. Cardiovascular: Capillary refill < 3 seconds Patient's skin is warm and dry. Respiratory: Airway is patent Respiratory effort is even, unlabored, Respiratory pattern is regular, symmetrical. GI: Abdomen is round non-distended. : No signs and/or symptoms were reported regarding the genitourinary system. Derm: No signs and/or symptoms reported regarding the dermatologic system. Musculoskeletal: No signs and/or symptoms reported regarding the musculoskeletal system. Historical: - Allergies: 11:04 Codeine; tm6 11:04 Erythromycin; tm6 - PMHx: 11:04 Anxiety; Chronic pain; Dementia; depressive disorder; GERD; hemiplegia; Parkinson's tm6 disease; - Immunization history:: Adult Immunizations up to date. - Social history:: Smoking status: unknown. - Family history:: not pertinent. Screenin:15 [facility] ED Fall Risk Assessment (Adult) History of falling in the last 3 months, me1 including since admission No falls in past 3 months (0 pts) Confusion or Disorientation No (0 pts) Intoxicated or Sedated No (0 pts) Impaired Gait Yes (1 pt) Mobility Assist Device Used No (0 pt) Altered Elimination Yes (1 pt) Score/Fall Risk Level 3 or more points = High Risk Oriented to surroundings, Maintained a safe environment, Hourly rounding (assess needs \T\ fall precautionary measures) done. Abuse screen: Denies threats or abuse. Nutritional screening: No deficits noted. Tuberculosis screening: No symptoms or risk factors identified. Assessment: 12:15 General: Appears comfortable, well groomed, well developed, well nourished, Behavior is me1 calm, cooperative, appropriate for age, Reports Sent via EMS by [facility] for AMS x 1 week, since patient was discharged from hospital for uti last week. Per family patient is normally verbal with a few words at a time but has been nonverbal for a few days and difficult to arrouse at times. Pain: Unable to use pain scale. Does not appear to understand pain scale. Neuro: Level of Consciousness is awake, alert, Oriented to unable to assess as patient is nonverbal. . 12:15 Cardiovascular: Capillary refill < 3 seconds Patient's skin is warm and dry. me1 Respiratory: Airway is patent Respiratory effort is even, unlabored, Respiratory pattern is regular, symmetrical. : Reports incontinence. Vital Signs: 10:59 BP 120 / 58; Pulse 96; Resp 24; Pulse Ox 92% on R/A; tm6 10:59 Temp 100.2(A); tm6 12:15 BP 110 / 64; Pulse 79; Resp 16; Pulse Ox 95% on 1 lpm NC; me1 13:30 BP 102 / 67; Pulse 92; Resp 17; Pulse Ox 94% on 1 lpm NC; me1 14:45 BP 112 / 72; Pulse 79; Resp 15; Pulse Ox 97% on 1 lpm NC; me1 15:30 BP 108 / 71; Pulse 9; Resp 16; Pulse Ox 96% on 1 lpm NC; me1 16:54 BP 105 / 68; Pulse 89; Resp 16; Pulse Ox 95% on 1 lpm NC; me1 ED Course: 10:43 Patient arrived in ED. rt 10:44 Cyrus Duke MD is Attending Physician. melinda 10:45 Attending Physician role handed off by Cyrus Duke MD rt 10:45 Alavro Gauthier MD is Attending Physician. rt 10:57 Maintain EMS IV. Dressing intact. Good blood return noted. Site clean \T\ dry. Gauge \T\ ld 1 site: 18G RH. 10:58 CT Head Brain wo Cont In Process Unspecified. EDMS 10:59 Pedro Casper, RN is Primary Nurse. tm6 11:04 Triage completed. tm6 11:04 Arm band placed on right wrist. tm6 11:48 Chest Single View XRAY In Process Unspecified. EDMS 12:15 No provider procedures requiring assistance completed. Flushed right hand. me1 12:15 Patient has correct armband on for positive identification. Bed in low position. Call me1 light in reach. Side rails up X2. Provided Education on: POC. Family verbalized understanding.. 13:34 Cong Soriano MD is Hospitalizing Provider. rt 19:20 Patient admitted, IV remains in place. me1 Administered Medications: 11:10 Drug: NS 0.9% IV 1000 ml IV at 1 bolus Per protocol; 1000 mL bolus Route: IV; Rate: 1 ld1 bolus; Site: right hand; 12:25 Follow up: IV Status: Completed infusion me1 11:30 Drug: Meropenem IV 1 grams IV at calculated rate once; (mix in NS 100 mL) Route: IV; tm6 Rate: calculated rate; Site: right hand; 12:17 Follow up: Response: No adverse reaction; IV Status: Completed infusion me1 12:27 Not Given (Duplicate Order): potassium chlorideliquid 40 meq PO once rt 13:31 Drug: Potassium Chloride IV 40 mEq IV at 40 calculated rate once; administer over 4 me1 hours Route: IV; Rate: 40 calculated rate; Site: right hand; 16:54 Follow up: IV Status: Infusion continued upon transfer me1 15:04 Drug: NS 0.9% IV 1000 ml IV at 100 ml/hr continuous Route: IV; Rate: 100 ml/hr; Site: [facility] right hand; 16:54 Follow up: IV Status: Infusion continued upon transfer me1 Medication: 19:20 VIS not applicable for this client. me1 Outcome: 13:34 Decision to Hospitalize by Provider. rt 16:55 Admitted to Med/surg accompanied by tech, via stretcher, room 204, with oxygen, with wa1 chart, Report called to RAMIN Daley 16:55 Condition: stable 16:55 Instructed on the need for admit, 17:22 Patient left the ED. hb Signatures: Dispatcher [employer] EDMS Cyrus Duke MD MD cha Baxter, Heather, RN RN Julienne Sheehan RN RN ld1 Alvaro Gauthier MD MD rt Riya Rosas RN RN me1 Pedro Casper RN RN tm6 Corrections: (The following items were deleted from the chart) 19:12 19:03 General: Appears comfortable, well groomed, well developed, well nourished, me1 Behavior is calm, cooperative, appropriate for age, Reports Sent via EMS by [facility] for AMS x 1 week, since patient was discharged from hospital for uti last week. Per family patient is normally verbal with a few words at a time but has been nonverbal for a few days and difficult to arrouse at times. me1 19:12 19:03 Pain: Unable to use pain scale. Does not appear to understand pain scale. me1 me1 19:12 19:03 Neuro: Level of Consciousness is awake, alert, Oriented to unable to assess as me1 patient is nonverbal. . me1 19:13 19:03 Cardiovascular: Capillary refill < 3 seconds Patient's skin is warm and dry. me1 me1 19:13 19:03 Respiratory: Airway is patent Respiratory effort is even, unlabored, Respiratory wa1 pattern is regular, symmetrical, me1 19:13 19:03 : Reports incontinence, me1 me1
[2023-01-21 13:57] LABS: Specific Gravity 1.014 (1.005-1.030); Urine Bacteria None Seen /HPF (<20); Urine Bilirubin NEGATIVE (Negative); Urine Blood Trace (Negative); Urine Clarity Turbid (Clear); Urine Color Yellow (Yellow); Urine Glucose NEGATIVE (Negative); Urine Mucus Slight /HPF (None Seen); Urine Protein TRACE (Negative); Urine RBC <5 /HPF (None Seen); Urine Urobilinogen Normal (Normal)
[2023-01-21] MEDS ORDERED: POTASSIUM CL 40 MEQ in NA CHLORIDE 0.9% 500 ML IV ONE (14:00)
--- NOTE | 2023-01-21 14:52 | P.HP ---
Certification for Inpatient Patient admitted to: Inpatient With expected LOS: >2 Midnights Patient will require the following post-hospital care: None Practitioner: I am a practitioner with admitting privileges, knowledge of patient current condition, hospital course, and medical plan of care. Services: Services provided to patient in accordance with Admission requirements found in Title 42 Section 412.3 of the Code of Federal Regulations Patient History Date of Service: 01/21/23 Reason for admission: Severe sepsis, UTI History of Present Illness: 77-year-old female with history of Parkinson's, dementia, depression anxiety, GERD who is a resident at [facility] presents to the emergency department for altered mental status. She was recently admitted at our facility on 12/04/2022 and subsequently discharged on 12/08/2022 after being diagnosed with sepsis secondary to ESBL E. coli UTI/bacteremia with 4 out of 4 positive blood cultures. At that time there is of difficulty obtaining IV access for PICC line/midline/central line and patient was treated with IM ertapenem. There is nobody else in the room to interview or ask questions about her care but she is apparently altered compared to her baseline. She is awake, maintaining her airway but not verbally responsive at this time. She was evaluated in the ER her labs are significant for normal CBC potassium 2.9 chloride 110 creatinine 1.27 GFR 44 glucose 131 lactic acid 3.4repeat pending UA with trace blood, 250 leukoesterase, 10-20 white blood cells. She also had low-grade fever in the ED, SIRS criteria were present including tachycardia, tachypnea, source of infection with suspected urinary tract infection. Lactate greater than 2 she will be admitted for severe sepsis secondary to UTI. Allergies codeine Allergy (Verified 12/04/22 18:27) Unknown Erythromycin Allergy (Uncoded 09/15/16 23:55) Unknown Home medications list reviewed: Yes Home Medications: Alendronate Sodium 1 tab PO 12/04/22 Aspirin Chewable [Aspirin Chewable*] 1 tab PO DAILY 12/04/22 Baclofen 10 mg PO QID 12/04/22 Calcium Carbonate/Vitamin D3 [Oscal 500 + Vit D 200 Iu Tab*] 1 tab PO DAILY 12/04/22 Carbidopa/Levodopa [Carbidopa-Levodopa 25-100 Tab] 1 tab PO ACHS 12/04/22 Dextran/Hypromellose/Glycerin [Artificial Tears 0.1-0.2-0.3%] 1 drop EACH EYE Q6H PRN 12/04/22 Mag Hydroxide 8% [Milk Of Magnesia*] 30 ml PO PRN PRN 12/04/22 Ondansetron [Zofran (Odt)*] 1 tab PO Q8HR 12/04/22 Oxymetazoline HCl [Nasal [place]] 2 spray NS BID 12/04/22 Pentazocine HCl/Naloxone HCl [Pentazocine-Naloxone Tablet] 1 tab PO BID 12/04/22 Polyethylene Glycol 3350 [Miralax] 17 gm PO DAILY PRN 12/04/22 Potassium Chloride 20 meq PO BID 12/04/22 Sennosides/Docusate Sodium [Docuzen 8.6-50 mg Tablet] 1 tab PO DAILY 12/04/22 Tramadol HCl [Ultram] 50 mg PO QID 12/04/22 Ertapenem Sodium [Ertapenem] 1 gm IM DAILY 12 Days #12 12/08/22 - Past Medical/Surgical History Diabetic: No -: GERD -: Parkinson's disease -: Dementia -: Impression and anxiety -: Chronic pain Psychosocial/ Personal History: Stays at [facility] - Family History Family History: Reviewed- Non-Contributory - Social History Place of Residence: [facility] Review of Systems is unable to be obtained Physical Examination - Physical Exam General: Alert, Confused, Unresponsive (Maintaining airway, eyes open) HEENT: Atraumatic, PERRLA, Mucous membr. moist/pink, EOMI, Sclerae nonicteric Neck: Supple, 2+ carotid pulse no bruit, No LAD, Without JVD or thyroid abnormality Respiratory: Clear to auscultation bilaterally, Normal air movement Cardiovascular: Regular rate/rhythm, Normal S1 S2 Capillary refill: <2 Seconds Gastrointestinal: Normal bowel sounds, No tenderness Musculoskeletal: No tenderness Integumentary: No rashes Neurological: Other (Obtunded, maintaining airway) - Studies Laboratory Data (last 24 hrs) 01/21/23 01/21/23 01/21/23 11:17 11:17 11:17 WBC 7.80 Hgb 13.2 Hct 38.4 Plt Count 246 PT 11.6 INR 1.05 APTT 34.5 Sodium 145 Potassium 2.9 L BUN 15 Creatinine 1.27 H Glucose 131 H Total Bilirubin 0.4 AST 16 ALT < 10 L Alkaline Phosphatase 100 Assessment and Plan - Plan Assessment: Severe sepsis secondary to UTIrecent history of ESBL E. coli UTI/bacteremia Acute toxic metabolic encephalopathy secondary to above Parkinson's disease Dementia Depression and anxiety GERD Plan: Severe sepsis secondary to UTIrecent history of ESBL E. coli UTI/bacteremia Acute toxic metabolic encephalopathy secondary to above Blood and urine cultures obtained patient was treated with IM ertapenem due to difficult intravenous access during previous admission Continue IV meropenem for now, infectious disease consult in place CT head negative for acute findings SIRS criteria present including leukocytosis, tachycardia and source infection confirmed on UTI, lactate greater than 2. No hypotension Parkinson's disease Dementia Depression and anxiety N.p.o. for now given depressed mental status, restart home medications when appropriate. GERD IV PPI DVT PPX: Lovenox Code status: Full Discharge Plan: [facility] Plan to discharge in: Greater than 2 days - Advance Directives Does patient have a Living Will: No Does patient have a Durable POA for Healthcare: No - Code Status/Comfort Care Code Status Assessed: Yes (Full) Critical Care: No Time Spent Managing Pts Care (In Minutes): 55
[2023-01-21] MEDS ORDERED: NA CHLORIDE 0.9% 1,000 ML ONE (15:15)
[2023-01-21] MEDS ORDERED: ACETAMINOPHEN 650MG/RECT SUPP PR PRN (17:43)
[2023-01-21] MEDS ORDERED: ONDANSETRON 4 MG/2 ML VIAL IV PRN (17:43)
[2023-01-21] MEDS ORDERED: SODIUM CHLORIDE 0.9% 10ML INJ IV PRN (17:43)
[2023-01-21] MEDS: NA CHLORIDE 0.9% 1,000 ML IV SCH (18:27)
[2023-01-21] MEDS: Meropenem 1,000 MG in NA CHLORIDE 0.9% 100 ML IV SCH (18:30)
[2023-01-21] MEDS: ENOXAPARIN 40 MG/0.4 ML SQ SCH (20:14)
[2023-01-22] MEDS: Meropenem 1,000 MG in NA CHLORIDE 0.9% 100 ML IV SCH ×3 (01:02→16:44)
[2023-01-22 03:56] LABS: Absolute Lymphocytes (CBC) 1.2 K/uL (0.7-4.9); Lymphocytes % 19.2 % (15.3-44.8); MCV 90.3 fL (80-100); MPV 8.7 fL (7.6-11.3); Platelets 217 thou/uL (152-406); RBC Red Blood Cell Count 3.77 M/uL (3.86-4.86)
[2023-01-22] MEDS: NA CHLORIDE 0.9% 1,000 ML IV SCH (04:24)
[2023-01-22 04:26] LABS: Potassium 2.9 mEq/L (3.5-5.1); Thyroid Stimulating Hormone 0.936 uIU/mL (0.358-3.740)
[2023-01-22] MEDS ORDERED: D5W 1,000 ML IV SCH (06:00)
[2023-01-22] MEDS ORDERED: VANCOMYCIN 1 GM in NA CHLORIDE 0.9% 250 ML IVPB SCH (06:00)
[2023-01-22] MEDS ORDERED: VANCOMYCIN 1.75 GM in NA CHLORIDE 0.9% 500 ML IVPB SCH (08:00)
[2023-01-22] MEDS ORDERED: VANCOMYCIN 1.75 GM in NA CHLORIDE 0.9% 500 ML IVPB ONE (08:15)
[2023-01-22] MEDS: ENOXAPARIN 40 MG/0.4 ML SQ SCH (08:18)
[2023-01-22] MEDS: KCL 20 MEQ/100 mL IVPB 20 MEQ/100 ML BAG IV SCH ×2 (08:19→13:13)
[2023-01-22] MEDS: PANTOPRAZOLE 40 MG INJ IVP SCH (08:19)
[2023-01-22] MEDS: D5LR 1,000 ML IV SCH ×2 (10:58→20:19)
--- NOTE | 2023-01-22 11:59 | P.PN ---
Subjective Date of Service: 01/22/23 Chief Complaint: Severe sepsis, UTI Subjective: Improving Speaking today, feeling better <Kirby Martin - Last Filed: 01/22/23 12:23> Date of Service: 01/22/23 Subjective: Improving <Demario Oneill - Last Filed: 01/22/23 12:56> Review of Systems is unable to be obtained <Kirby Martin - Last Filed: 01/22/23 12:23> Physical Examination - Vital Signs Temperature: 97.7 F Blood Pressure: 117/66 Pulse: 87 Respirations: 20 Pulse Ox (%): 98 - Physical Exam General: Alert, In no apparent distress, Oriented x1, Confused HEENT: Atraumatic, PERRLA, EOMI Neck: Supple, JVD not distended Respiratory: Clear to auscultation bilaterally, Normal air movement Cardiovascular: Regular rate/rhythm, Normal S1 S2 Capillary refill: <2 Seconds Gastrointestinal: Normal bowel sounds, No tenderness Musculoskeletal: No tenderness Integumentary: No rashes Neurological: Normal speech, Normal tone, Normal affect - Studies Laboratory Data (last 24 hrs) 01/21/23 11:17 Sodium 145 Potassium 2.9 L BUN 15 Creatinine 1.27 H Glucose 131 H Total Bilirubin 0.4 AST 16 ALT < 10 L Alkaline Phosphatase 100 Medications List Reviewed: Yes <Kirby Martin - Last Filed: 01/22/23 12:23> Assessment And Plan - Plan Assessment: Severe sepsis secondary to UTIrecent history of ESBL E. coli UTI/bacteremia Acute toxic metabolic encephalopathy secondary to above Mild hypernatremia Hypokalemia Parkinson's disease Dementia Depression and anxiety GERD Plan: Severe sepsis secondary to UTIrecent history of ESBL E. coli UTI/bacteremia Acute toxic metabolic encephalopathy secondary to above Blood and urine cultures obtained patient was treated with IM ertapenem due to difficult intravenous access during previous admission Continue IV meropenem for now, infectious disease consult in place Blood cultures with 1 set Gram stain positive for gram-positive cocci in cluste rs-added Vanco Repeat blood cultures ordered CT head negative for acute findings SIRS criteria present including leukocytosis, tachycardia and source infection confirmed on UTI, lactate greater than 2. No hypotension Mild hypernatremia Switch IV fluids to D5W Hypokalemia Electrolyte protocol in place Parkinson's disease Dementia Depression and anxiety N.p.o. for now given depressed mental status, restart home medications when appropriate. GERD IV PPI DVT PPX: Lovenox Code status: Full Discharge Plan: [facility] Plan to discharge in: Greater than 2 days - Code Status/Comfort Care Code Status Assessed: Yes (Full code) Critical Care: No Time Spent Managing PTS Care (In Minutes): 25 <Kirby Martin - Last Filed: 01/22/23 12:23> Physician Review: Patient Assessed, Agree with Above Assessment and Plan <Demario Oneill - Last Filed: 01/22/23 12:56>
[2023-01-22] MEDS ORDERED: DEXTRAN OPTH PRN (17:14)
[2023-01-22] MEDS ORDERED: HYPROMELLOSE OPTH PRN (17:14)
[2023-01-22] MEDS ORDERED: GLYCERIN OPTH PRN (17:14)
[2023-01-22] MEDS: BACLOFEN 10 MG TAB PO SCH (20:22)
[2023-01-22] MEDS: TRAMADOL HCL 50 MG TAB PO SCH (20:22)
[2023-01-22] MEDS: VANCOMYCIN 1.5 GM in NA CHLORIDE 0.9% 500 ML IVPB SCH (20:25)
[2023-01-23] MEDS: Meropenem 1,000 MG in NA CHLORIDE 0.9% 100 ML IV SCH ×3 (00:34→17:25)
[2023-01-23] MEDS: D5LR 1,000 ML IV SCH ×2 (05:10→15:33)
[2023-01-23] MEDS: LEVOTHYROXINE SOD 0.025 MG TAB PO SCH (05:10)
[2023-01-23 07:43] LABS: Absolute Lymphocytes (CBC) 1.1 K/uL (0.7-4.9); Hematocrit 33.5 % (36.0-45.0); Lymphocytes % 15.5 % (15.3-44.8); MCV 90.6 fL (80-100); MPV 8.4 fL (7.6-11.3); Platelets 187 thou/uL (152-406)
[2023-01-23 07:58] LABS: Magnesium 2.1 mg/dL (1.6-2.4)
[2023-01-23 08:12] LABS: Potassium 2.5 mEq/L (3.5-5.1)
--- NOTE | 2023-01-23 08:34 | P.PN ---
Subjective Date of Service: 01/23/23 Chief Complaint: Severe sepsis, UTI Much more alert, now oriented x3, denies complaints <Kirby Martin - Last Filed: 01/23/23 08:31> Date of Service: 01/23/23 Subjective: Improving <Demario Oneill - Last Filed: 01/23/23 17:55> Review of Systems 10-point ROS is otherwise unremarkable General: As per HPI <JanessamichaelKirby Loco - Last Filed: 01/23/23 08:31> Physical Examination - Vital Signs Temperature: 97.7 F Blood Pressure: 175/93 Pulse: 79 Respirations: 18 Pulse Ox (%): 97 - Physical Exam General: Alert, In no apparent distress, Oriented x3 HEENT: Atraumatic, PERRLA, EOMI Neck: Supple Respiratory: Clear to auscultation bilaterally, Normal air movement Cardiovascular: Regular rate/rhythm, Normal S1 S2 Gastrointestinal: Normal bowel sounds, No tenderness Musculoskeletal: No tenderness Integumentary: No rashes Neurological: Normal affect, Abnormal speech (speech slow but clear) - Studies Medications List Reviewed: Yes <Kirby Martin - Last Filed: 01/23/23 08:31> Assessment And Plan - Plan Assessment: Severe sepsis secondary to UTIrecent history of ESBL E. coli UTI/bacteremia Acute toxic metabolic encephalopathy secondary to above Mild hypernatremia Hypokalemia Parkinson's disease Dementia Depression and anxiety GERD Plan: Severe sepsis secondary to UTIrecent history of ESBL E. coli UTI/bacteremia Acute toxic metabolic encephalopathy secondary to above Improving mental status now oriented x3, will try swallow scree, attempt to advance diet patient was treated with IM ertapenem due to difficult intravenous access during previous admission Continue IV meropenem for now, infectious disease consult in place Blood cultures with 1 set Gram stain positive for gram-positive cocci in clusters-added Vanco Urine culture- NGTD Repeat blood cultures ordered CT head negative for acute findings SIRS criteria present including leukocytosis, tachycardia and source infection confirmed on UTI, lactate greater than 2. No hypotension Mild hypernatremia Switch IV fluids to D5W Hypokalemia Electrolyte protocol in place Parkinson's disease Dementia Depression and anxiety N.p.o. for now given depressed mental status, restart home medications when appropriate. GERD IV PPI DVT PPX: Lovenox Code status: Full Discharge Plan: [facility] Plan to discharge in: 48 Hours - Code Status/Comfort Care Code Status Assessed: Yes (Full ) Physician Review: Patient Assessed, Agree with Above Assessment and Plan Critical Care: No Time Spent Managing PTS Care (In Minutes): 35 <Kirby Martin - Last Filed: 01/23/23 08:31> Physician Review: Patient Assessed, Agree with Above Assessment and Plan <Demario Oneill - Last Filed: 01/23/23 17:55>
[2023-01-23] MEDS: FAMOTIDINE 20 MG TAB PO SCH (09:00)
[2023-01-23] MEDS: BACLOFEN 10 MG TAB PO SCH ×4 (10:33→20:39)
[2023-01-23] MEDS: PANTOPRAZOLE 40 MG INJ IVP SCH ×2 (10:33→10:35)
[2023-01-23] MEDS: DOCUSATE NA/SENNA CONC 1 TAB PO SCH (10:34)
[2023-01-23] MEDS: CALCIUM CARB 500MG/VIT D 200 IU TAB PO SCH (10:34)
[2023-01-23] MEDS: ASPIRIN 81 MG CHEWABLE TABLET PO SCH (10:34)
[2023-01-23] MEDS: ENOXAPARIN 40 MG/0.4 ML SQ SCH (10:34)
[2023-01-23] MEDS: TRAMADOL HCL 50 MG TAB PO SCH ×4 (10:35→20:37)
[2023-01-23] MEDS: CARBIDOPA/LEVODOPA 25/100 TAB PO SCH ×3 (10:38→17:24)
[2023-01-23] MEDS: KCL 20 MEQ/100 mL IVPB 20 MEQ/100 ML BAG IV SCH ×3 (11:18→15:27)
[2023-01-23] MEDS: VANCOMYCIN 1.5 GM in NA CHLORIDE 0.9% 500 ML IVPB SCH (15:38)
[2023-01-23] MEDS: POTASSIUM 25 MEQ EFFERV TAB PO ONE ×2 (20:35→21:29)
[2023-01-23] MEDS ORDERED: KCL 20 MEQ/100 mL IVPB 20 MEQ/100 ML BAG IV SCH (22:00)
[2023-01-24] MEDS: Meropenem 1,000 MG in NA CHLORIDE 0.9% 100 ML IV SCH ×3 (01:00→16:34)
[2023-01-24] MEDS: D5LR 1,000 ML IV SCH ×3 (01:48→20:00)
[2023-01-24] MEDS: LEVOTHYROXINE SOD 0.025 MG TAB PO SCH (05:21)
[2023-01-24 06:29] LABS: Absolute Lymphocytes (CBC) 1.1 K/uL (0.7-4.9); Hematocrit 34.5 % (36.0-45.0); Lymphocytes % 15.7 % (15.3-44.8); MCV 89.7 fL (80-100); MPV 8.5 fL (7.6-11.3); Platelets 222 thou/uL (152-406); RBC Red Blood Cell Count 3.85 M/uL (3.86-4.86)
[2023-01-24 06:46] LABS: Magnesium 1.9 mg/dL (1.6-2.4); Potassium 3.4 mEq/L (3.5-5.1)
--- NOTE | 2023-01-24 08:51 | P.CNS ---
Date of Consult: 01/24/23 Reason for Consult: severe sepsis, UTI, bacteremia Chief Complaint: Severe sepsis, UTI History of Present Illness: 77-year-old female with history of Parkinson's, dementia, depression anxiety, GERD who [facility] due to altered [facility] status. Patient was admitted for severe sepsis secondary to urinary tract infection. ID was consulted. Allergies codeine Allergy (Verified 12/04/22 18:27) Unknown Erythromycin Allergy (Uncoded 09/15/16 23:55) Unknown Home medications list reviewed: Yes Home Medications: Alendronate Sodium 1 tab PO SEECOM 12/04/22 Aspirin Chewable [Aspirin Chewable*] 1 tab PO DAILY 12/04/22 Baclofen 10 mg PO QID 12/04/22 Calcium Carbonate/Vitamin D3 [Oscal 500 + Vit D 200 Iu Tab*] 1 tab PO DAILY 12/04/22 Carbidopa/Levodopa [Carbidopa-Levodopa 25-100 Tab] 1 tab PO TIDWM 12/04/22 Dextran/Hypromellose/Glycerin [Artificial Tears 0.1-0.2-0.3%] 1 drop EACH EYE Q6H PRN 12/04/22 Ondansetron [Zofran (Odt)*] 1 tab PO Q8HR PRN 12/04/22 Pentazocine HCl/Naloxone HCl [Pentazocine-Naloxone Tablet] 1 tab PO BID 12/04/22 Potassium Chloride 20 meq PO BID 12/04/22 Sennosides/Docusate Sodium [Docuzen 8.6-50 mg Tablet] 2 tab PO DAILY 12/04/22 Tramadol HCl [Ultram] 50 mg PO QID 12/04/22 Famotidine [Pepcid*] 20 mg PO DAILY 01/21/23 Furosemide [Lasix*] 60 mg PO TID 01/21/23 Levothyroxine Sodium 25 mcg PO DAILY 01/21/23 - Past Medical/Surgical History Diabetic: No -: GERD -: Parkinson's disease -: Dementia -: Impression and anxiety -: Chronic pain Psychosocial/ Personal History: Stays at [facility] - Social History Smoking Status: Unknown if ever smoked Place of Residence: [facility] Review of Systems 10-point ROS is otherwise unremarkable Gastrointestinal: Nausea, Vomiting, Abdominal Pain, Diarrhea Physical Examination Temp Pulse Resp BP Pulse Ox 97.1 F 76 18 141/71 H 92 01/24/23 04:00 01/24/23 04:00 01/24/23 04:00 01/24/23 04:00 01/24/23 04:00 General: In no apparent distress, Oriented x2 HEENT: Atraumatic Neck: Supple Respiratory: Clear to auscultation bilaterally, Normal air movement, Other (on 2L nasal cannula) Cardiovascular: Regular rate/rhythm, Normal S1 S2 Gastrointestinal: Normal bowel sounds, Soft and benign Integumentary: No rashes Urinary: Other (PureWick) Laboratory data -Reviewed Microbiology data -Reviewed Imagings Data: -Reviewed Conclusions/Impression: Problem list Severe sepsis secondary to urinary tract infection History of E. coli ESBL Parkinson's disease Dementia Hypokalemia Hypocalcemia Hypernatremia Sepsis secondary to urinary tract infection - Recent history of E. coli ESBL bacteremia secondary to urinary tract infection on 12/04 - Started on meropenem (01/21-) and vancomycin (01/22-) -Blood cultures 01/21: gram stain with Gram-positive cocci in 1 of 4 bottles. Cultures with no growth. -Repeat Blood cultures 01/22 and 01/23: No growth to date -Urine culture 01/21: No growth to date No leukocytosis. Afebrile. Recommendations - Continue Meropenem for now. - Discontinued Vancomycin IV. - Monitor WBC and fever trends - Pressure offloading measures - Monitor for worsening abdominal pain and diarrhea Case discussed with Suzette Matthew
[2023-01-24] MEDS: POTASS/SODIUM PHOSPHATE 1 PKT POWD.PACK PO SCH ×3 (09:21→10:00)
[2023-01-24] MEDS: ASPIRIN 81 MG CHEWABLE TABLET PO SCH (09:21)
[2023-01-24] MEDS: ENOXAPARIN 40 MG/0.4 ML SQ SCH (09:21)
[2023-01-24] MEDS: TRAMADOL HCL 50 MG TAB PO SCH ×4 (09:21→21:08)
[2023-01-24] MEDS: FAMOTIDINE 20 MG TAB PO SCH (09:22)
[2023-01-24] MEDS: CARBIDOPA/LEVODOPA 25/100 TAB PO SCH ×3 (09:22→16:35)
[2023-01-24] MEDS: DOCUSATE NA/SENNA CONC 1 TAB PO SCH (09:23)
[2023-01-24] MEDS: CALCIUM CARB 500MG/VIT D 200 IU TAB PO SCH (09:23)
[2023-01-24] MEDS: BACLOFEN 10 MG TAB PO SCH ×4 (09:23→21:09)
[2023-01-24] MEDS: VANCOMYCIN 1.5 GM in NA CHLORIDE 0.9% 500 ML IVPB SCH (10:44)
[2023-01-24 16:42] VITALS: BMI 33.8
[2023-01-24] MEDS ORDERED: KCL 20 MEQ/100 mL IVPB 20 MEQ/100 ML BAG IV SCH (23:45)
[2023-01-25] MEDS ORDERED: NA CHLORIDE 0.9% 500 ML IV PRN (00:43)
[2023-01-25] MEDS: Meropenem 1,000 MG in NA CHLORIDE 0.9% 100 ML IV SCH ×3 (01:07→17:59)
[2023-01-25 05:08] VITALS: O2SAT 96
[2023-01-25] MEDS: LEVOTHYROXINE SOD 0.025 MG TAB PO SCH (05:31)
[2023-01-25] MEDS: D5LR 1,000 ML IV SCH ×2 (06:00→12:44)
[2023-01-25 08:02] LABS: Potassium 3.7 mEq/L (3.5-5.1)
--- NOTE | 2023-01-25 08:04 | EKG ---
Test Date: 2023-01-21 Test Time: 11:57:00 [facility] Pric[facility] Consultant: JORDYN MEASUREMENT RESULTS: Intervals: Rate: 134 AL: 144 QRSD: 80 QT: 318 QTc: [address] [place]: P: 88 AL: 144 QRS: -14 T: -80 INTERPRETIVE STATEMENTS: Sinus tachycardia Low voltage QRS Inferior-posterior infarct, age undetermined Possible Anterolateral infarct, age undetermined Abnormal ECG Compared to ECG 12/04/2022 10:21:45 Low QRS voltage now present Myocardial infarct finding now present T-wave abnormality no longer present Possible ischemia no longer present Electronically Signed On 01-25-23 07:55:21 CDT by Wilmer Ward
--- NOTE | 2023-01-25 08:16 | P.PN ---
Date of Service: 01/25/23 Chief Complaint: Severe sepsis, UTI Subjective: Patient resting comfortably in bed, in no apparent distress. She denies any new or worsening complaints at this time. no acute events reported overnight. Physical Examination Temp Pulse Resp BP Pulse Ox 98.4 F 98 H 18 123/76 98 01/25/23 04:00 01/25/23 04:00 01/25/23 04:00 01/25/23 04:00 01/25/23 04:00 General: In no apparent distress, Oriented x2 HEENT: Atraumatic, normocephalic. Missing teeth. Neck: Supple Respiratory: Diminished at bases Normal air movement. On 2L nasal cannula. Cardiovascular: Regular rate/rhythm, Normal S1 S2 Gastrointestinal: Normal bowel sounds, Soft and benign Integumentary: No rashes Urinary: PureWick Laboratory data -Reviewed Microbiology data -Reviewed Imagings Data: -Reviewed Medications List: Acetaminophen (Acetaminophen 650mg/Rect Supp) 650 mg GA Q6HP PRN PRN Reason: TEMP > 100' F Aspirin (Aspirin 81 Mg Chewable Tablet) 81 mg PO DAILY [facility] Last Admin: 01/24/23 09:21 Dose: 81 mg Baclofen (Baclofen 10 Mg Tab) 10 mg PO QID [facility] Last Admin: 01/24/23 21:09 Dose: 10 mg Calcium Carbonate (Calcium Carb 500mg/Vit D 200 Iu Tab) 1 tab PO DAILY [facility] Last Admin: 01/24/23 09:23 Dose: 1 tab Carbidopa/Levodopa (Carbidopa/Levodopa 25/100 Tab) 1 tab PO TIDWM [facility] Last Admin: 01/24/23 16:35 Dose: 1 tab Enoxaparin Sodium (Enoxaparin 40 Mg/0.4 Ml) 40 mg SQ DAILY [facility] Last Admin: 01/24/23 09:21 Dose: 40 mg Famotidine (Famotidine 20 Mg Tab) 20 mg PO DAILY [facility]; Protocol Last Admin: 01/24/23 09:22 Dose: 20 mg Home Med (Dextran/Hypromellose/Glycerin [Artificial Tears 0.1-0.2-0.3%]) 0 drop OPTH Q6H PRN PRN Reason: ALLERGIES Meropenem 1,000 mg/ Sodium (Chloride) 100 mls @ 200 mls/hr IV Q8HR [facility] Last Admin: 01/25/23 01:07 Dose: 100 mls Dextrose/Lactated Ringer's (Dextrose 5%-Lactated Ringers) 1,000 mls @ 100 mls/hr IV .Q10H [facility] Last Admin: 01/25/23 06:00 Dose: Not Given Sodium Chloride (Sodium Chloride) 500 mls @ 999 mls/hr IV PRN PRN PRN Reason: BP 86/52,pulse 73 Last Admin: 01/25/23 00:51 Dose: 500 mls Levothyroxine Sodium (Levothyroxine Sod 0.025 Mg Tab) 0.025 mg PO DAILYAC [facility]ADIA Last Admin: 01/25/23 05:31 Dose: 0.025 mg Ondansetron HCl (Ondansetron 4 Mg/2 Ml Vial) 4 mg IV Q6HP PRN PRN Reason: NAUSEA / VOMITING Pantoprazole Sodium (Pantoprazole 40 Mg Inj) 40 mg IVP DAILY [facility]; Protocol Last Admin: 01/23/23 10:35 Dose: 40 mg Senna/Docusate Sodium (Docusate Na/Senna Conc 1 Tab) 2 tab PO DAILY [facility] Last Admin: 01/24/23 09:23 Dose: 2 tab Sodium Chloride (Sodium Chloride 0.9% 10ml Inj) 10 ml IV UD PRN PRN Reason: Diluant Tramadol HCl (Tramadol Hcl 50 Mg Tab) 50 mg PO QID [facility] Last Admin: 01/24/23 21:08 Dose: 50 mg Assessment and Plan Problem list Severe sepsis secondary to urinary tract infection History of E. coli ESBL Parkinson's disease Dementia Hypokalemia Hypocalcemia Hypernatremia Sepsis secondary to suspected urinary tract infection - Recent history of E. coli ESBL bacteremia secondary to urinary tract infection on 12/04 - Previously on Vancomycin 01/22-01/24) - On Meropenem (01/21-) and vancomycin (01/22-) -Blood cultures 01/21: Staph epidermis in 1 of 4 bottles; likely a contaminant. -Repeat Blood cultures 01/22 and 01/23: No growth to date -Urine culture 01/21: No growth to date No leukocytosis. Afebrile. Recommendations - Discontinue Meropenem after today's dosing and continue to monitor patient for worsening s/s of infection. - Monitor WBC and fever trends - Pressure offloading measures Case discussed with Dr. Leahy NSaad
[2023-01-25] MEDS: FAMOTIDINE 20 MG TAB PO SCH (08:43)
[2023-01-25] MEDS: BACLOFEN 10 MG TAB PO SCH ×3 (08:43→17:58)
[2023-01-25] MEDS: TRAMADOL HCL 50 MG TAB PO SCH ×3 (08:43→17:59)
[2023-01-25] MEDS: ASPIRIN 81 MG CHEWABLE TABLET PO SCH (08:43)
[2023-01-25] MEDS: DOCUSATE NA/SENNA CONC 1 TAB PO SCH (08:43)
[2023-01-25] MEDS: CALCIUM CARB 500MG/VIT D 200 IU TAB PO SCH (08:44)
[2023-01-25] MEDS: PANTOPRAZOLE 40 MG INJ IVP SCH (08:44)
[2023-01-25] MEDS: CARBIDOPA/LEVODOPA 25/100 TAB PO SCH ×3 (08:44→17:59)
[2023-01-25] MEDS: ENOXAPARIN 40 MG/0.4 ML SQ SCH (08:44)
[2023-01-25 14:35] LABS: SARS-CoV-2 Antigen Rapid Res Negative (Negative)
[2023-01-25 15:20] VITALS: TEMP 97.1
[2023-01-25 17:17] VITALS: BP 104/66
== END 2023-01-25 19:20 | DRG 871 ==
LOC: ER 10:42 → ERHOLD 14:39 → 2ND 16:56
PROVIDERS: ADMIT Internal Medicine; ATTEND Hospitalist
DX: A41.9 Sepsis, unspecified organism (principal); G92.8 Other toxic encephalopathy; N39.0 Urinary tract infection, site not specified; F03.94 Unspecified dementia, unspecified severity, with anxiety; F03.93 Unspecified dementia, unspecified severity, with mood disturbance; E87.0 Hyperosmolality and hypernatremia; F03.90 Unspecified dementia, unspecified severity, without behavioral disturbance, psychotic disturbance, mood disturbance, and anxiety; R65.20 Severe sepsis without septic shock; E87.6 Hypokalemia; E83.51 Hypocalcemia; G89.29 Other chronic pain; K21.9 Gastro-esophageal reflux disease without esophagitis; G20.A1 Parkinson's disease without dyskinesia, without mention of fluctuations; Z88.1 Allergy status to other antibiotic agents; Z88.5 Allergy status to narcotic agent; Z20.822 Contact with and (suspected) exposure to COVID-19; Z79.82 Long term (current) use of aspirin; Z79.899 Other long term (current) drug therapy; Z79.890 Hormone replacement therapy
CPT/HCPCS: 36415; 70450; 71045; 80048; 80053; 80202; 81001; 82947; 83605; 83735; 84100; 84132; 84439; 84443; 85025; 85610; 85730; 87040; 87077; 87086; 87088; 87186; 87205; 87811; 92610; 93005; 96365; 96366; 96367; 99285; C9113; J1650; J2185; J3480; J7030; J7040; J7121

== ENCOUNTER 2023-07-03 15:34 | Emergency (ER) | payer OTHER ==
--- OUTSIDE RECORDS SUMMARY | 2023-07-03 15:37 | XMS REPORT | Continuity of Care Document ---
Author Name Unknown Address [address] [facility] [address] [place] [address] [facility] thconnect Address [address] 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 Name Role Phone JULIÁN ENGEL Primary Care Physician Unavailab SOLOMON Russell Attending Clinician Unavail able SOLOMON SOSA Attending Clinician Unavail able Doctor Unassigned, [place] Attending Clinician U jesusita Sosa MD, Solomon Ng Attending Clinician Payers Payer Name Policy Type Policy Number Effective Date Expirati on Date Source MEDICARE PART A \T\ B [id number] 2010 00:00:00 [place] [id number] 2017 00:00:00 Problems Condition Name Condition Details Condition Category Status Onset Date Resolution Date Last Treatment Date Treating Clinician Comments Source Generalize d weakness Generalize d weakness Disease Active 11-14 00:00: 00 [facility] Chronic pain syndrome Chronic pain syndrome Disease Active 11-14 00:00: 00 [facility] Vitamin D deficiency Vitamin D deficiency Disease Active 11-14 00:00: 00 [facility] Does not transfer from wheelchair to chair Does not transfer from wheelchair to chair Disease Active 11-14 00:00: 00 [facility] Allergies, Adverse Reactions, Alerts Allergy Name Allergy Type Status Severity Reaction(s) Onset Date Inactive Date Treating Clinician Comments Source Matthias Carmona ty to adverse reaction s Active Other - See comments 11-14 00:00: 00 [facility] Duloxeti ne Propensi ty to adverse reaction s Active Other - See comments 11-14 00:00: 00 [facility] Erythrom ycin Propensi ty to adverse reaction s Active Other - See comments 11-14 00:00: 00 [facility] CODEINE DRUG INGREDI Active Other-Cmnt 11-14 00:00: 00 [facility] DULOXETI NE DRUG INGREDI Active Other-Cmnt 11-14 00:00: 00 [facility] ERYTHROM YCIN DRUG Active Other-Cmnt 11-14 00:00: 00 [facility] Social History Social Habit Start Date Stop Date Quantity Comments Source History of tobacco use Cigarette Smoker [facility] Sexual orientation [facility] Alcohol intake 2023-03-07 00:00:00 2023-03-07 00:00:00 Current non-drinker of alcohol (finding) [facility] History of Social function 2023-03-07 00:00:00 2023-03-07 00:00:00 [facility] Tobacco use and exposure 2020-01-25 00:00:00 2020-01-25 00:00:00 Former smokeless tobacco user [facility] Sex Ass[birth year] At 1945 00:00:00 1945 00:00:00 [facility] Smoking Status Start Date Stop Date Source Ex-smoker 2020-01-25 00:00:00 2020-01-25 00:00:00 [facility] Medications Ordered Medication Name Filled Medication Name Start Date Stop Date Current Medication? Ordering Clinician Indication Dosage Frequency Signature (SIG) Comments Components Source alendronate 70 mg tablet 2019-03 007 00:00: 00 Yes [facility] mirtazapine 30 mg tablet 2019-03 005 00:00: 00 Yes [facility] aspirin 81 mg chewable tablet 10-02 15:46: 51 Yes 81mg Take 81 mg by mouth daily. [facility] LORazepam (ATIVAN) 0.5 mg tablet 10-02 15:46: 51 Yes .5mg Take 0.5 mg by mouth every 8 (eight) hours as needed. [facility] baclofen 10 mg tablet 10-02 15:46: 51 Yes 10mg Take 10 mg by mouth 3 (three) times daily. [facility] menthol/cam phor (BIOFREEZE TOPICAL) 10-02 15:46: 51 Yes Apply to area(s). [facility] Diclofenac Sodium 1 % gel 10-02 15:46: 51 Yes Apply to area(s) 2 (two) times daily. [facility] docusate 100 mg capsule 10-02 15:46: 51 Yes 100mg Take 100 mg by mouth daily. [facility] melatonin 3 mg tablet 10-02 15:46: 51 Yes 3mg Take 3 mg by mouth at bedtime. [facility] meloxicam 7.5 mg tablet 10-02 15:46: 51 Yes 7.5mg Take 7.5 mg by mouth daily. [facility] psyllium 3.4 gram packet 10-02 15:46: 51 Yes 1{packe t} Take 1 Packet by mouth daily. [facility] polyethlene glycol powder packet 10-02 15:46: 51 Yes Take by mouth. [facility] oxymetazoli ne (NASAL SPRAY 12 HOUR) 0.05 % nasal spray 10-02 15:46: 51 Yes 1{spray } Use 1 [place] in each nostril 2 (two) times daily. [facility] omeprazole 20 mg capsule 10-02 15:46: 51 Yes 20mg Take 20 mg by mouth daily. [facility] pentazocine -naloxone 50-0.5 mg tablet 10-02 15:46: 51 Yes 1{tbl} Take 1 tablet by mouth every 4 (four) hours as needed for Pain. [facility] sennosides- docusate sodium 8.6-50 mg per tablet 10-02 15:46: 51 Yes 1{tbl} Take 1 tablet by mouth daily. [facility] traMADOL (ULTRAM) 50 mg tablet 10-02 15:46: 51 Yes 50mg Take 50 mg by mouth every 6 (six) hours as needed. [facility] tramadol HCl (TRAMADOL ORAL) 10-02 15:46: 51 Yes 100mg Take 100 mg by mouth every 6 (six) hours as needed for Pain (scale 4-6). [facility] carbidopa-l evodopa 25-100 mg SR tablet 10-02 15:46: 51 Yes 1{tbl} Take 1 tablet by mouth before meals. [facility] Cholecalcif juan antonio, Vitamin D3, 1,000 unit capsule 10-02 15:46: 51 Yes 2000U Take 2,000 Units by mouth daily. [facility] Vital Signs Vital Name Observation Time Observation Value Comments S ource Systolic blood pressure 2023-03-07 14:20:00 111 mm[Hg] [facility] Diastolic blood pressure 2023-03-07 14:20:00 69 mm[Hg] [facility] Heart rate 2023-03-07 14:20:00 84 /min [facility] Body height 2023-03-07 14:20:00 157.5 cm [facility] Oxygen saturation in Arterial blood by Pulse oximetry 2023-03-07 14:20:00 96 /min [facility] Procedures Procedure Date / Time Performed Performing Clinicia n Source EXTERNAL PROVIDER RECORDS 2023-03-14 06:01:00 Doctor Unassigned, [place] [facility] Encounters Start Date/Time End Date/Time Encounter Type Admission Type Attending Clinicians Care Facility Care Department Encounter ID Source 2023-06-06 09:20:00 2023-06-06 09:20:00 Outpatient [facility] [id number] [facility] 2023-03-14 00:00:00 2023-03-14 00:00:00 Orders Only Doctor Unassigned, [place] [facility] [id number] [facility] 2023-03-07 08:00:00 2023-03-07 09:27:38 Outpatient [facility] [id number] [facility] 2023-03-07 08:00:00 2023-03-07 09:27:38 [facility] [id number] [facility] 2023-02-11 12:00:00 2023-02-11 12:00:00 Outpatient [facility] [id number] [facility] 2020-01-25 14:20:00 2020-01-25 14:20:00 Outpatient [facility] [id number] [facility] 2020-01-25 14:20:00 2020-01-25 14:20:00 Outpatient [facility] [id number] [facility]
--- NOTE | 2023-07-03 16:47 | RAD REPORT ---
EXAM DESCRIPTION: CT - Head C Spine Cap Wo Con - 07/03/2023 4:18 pm CLINICAL HISTORY: Trauma, head and neck injury. Chest, abdomen and pelvis pain. TRAUMA COMPARISON: Head C Spine Cap Wo Con dated 12/04/2022 TECHNIQUE: CT head without contrast. CT cervical spine without contrast with coronal and sagittal reformatted images. CT chest, abdomen and pelvis with coronal and sagittal reformatted images of the spine. All CT scans are performed using dose optimization technique as appropriate and may include automated exposure control or mA/KV adjustment according to patient size. FINDINGS: CT HEAD WITHOUT CONTRAST: No intracranial hemorrhage, hydrocephalus or extra-axial fluid collection. No acute large vascular te rritory infarct. Moderate chronic small vessel ischemic changes. The paranasal sinuses and mastoids are clear. The calvarium is intact. CT CERVICAL SPINE WITHOUT CONTRAST: No fracture or subluxation. The prevertebral soft tissues are normal in thickness.Multilevel degenerative changes are present in the spine. CT CHEST, ABDOMEN, PELVIS: Thorax: Chest Wall: No abnormal mass Lungs: No acute abnormality. Pleura: No effusions or pneumothorax. Kaia/Mediastinum: No lymphadenopathy. Aorta/Pulmonary Arteries: Unremarkable Heart: Normal size. Abdomen/Pelvis: Liver: No acute abnormality or suspicious lesions. Biliary: No biliary ductal dilatation. Stomach: No significant focal abnormality. Duodenum: No significant focal abnormality. Pancreas: No significant abnormality. Spleen: No significant abnormality. Adrenal: No suspicious lesions. Kidney/ureter: No hydronephrosis. No renal calculi. Retroperitoneum: No retroperitoneal adenopathy. Vascular: No aneurysm. Bowel: Moderate stool. No bowel obstruction.. Peritoneum: No ascites or free air. Bladder: Grossly unremarkable. Reproductive: No adnexal masses. Bones: Bilateral femoral head flattening and irregularity may be from hip dysplasia or advanced degen erative changes. No hip fractures identified. Mild compression deformities present at L1 and L2 which are chronic. Grade 1 anterolisthesis of L4 on L5. Other: n/a IMPRESSION: Negative for acute traumatic findings.
[2023-07-03] MEDS ORDERED: NA CHLORIDE 0.9% 1,000 ML ONE (17:28)
--- NOTE | 2023-07-03 17:50 | ER ---
Nurse's Notes [facility] Name: Sara Man Age: 77 yrs Sex: Female : 1945 Arrival Date: 07/03/2023 Time: 15:34 Bed 17 Private MD: Diagnosis: Fall (on)(from) incline-BED;Dementia in other diseases classified elsewhere without behavioral disturbance Presentation: 07/02 16:12 Chief complaint: Patient states: Pt states she was sitting on the edge of her bed and tl4 reached for a magazine. Pt states she fell to the floor. Pt c/o right shoulder, side, hip and leg pain. Pt denies striking her head or LOC. Fall was unwitnessed. Coronavirus screen: At this time, the client does not indicate any symptoms associated with coronavirus-19. Ebola Screen: No symptoms or risks identified at this time. Initial Sepsis Screen: Does the patient meet any 2 criteria? No. Patient's initial sepsis screen is negative. Does the patient have a suspected source of infection? No. Patient's initial sepsis screen is negative. Initial Sepsis Screen: Does the patient meet any 2 criteria?. Risk Assessment: Do you want to hurt yourself or someone else? Patient reports no desire to harm self or others. Onset of symptoms was July 03, 2023. 16:12 Method Of Arrival: EMS tl4 16:12 Acuity: IZABELA 3 tl4 Triage Assessment: 16:14 General: Appears in no apparent distress. Behavior is calm, cooperative. Pain: tl4 Complains of pain in right arm and right leg. EENT: No deficits noted. No signs and/or symptoms were reported regarding the EENT system. Neuro: Level of Consciousness is awake, alert, obeys commands, Oriented to person, place, time, situation, Moves all extremities. Speech is normal. Cardiovascular: Denies chest pain, palpitations, syncope, Capillary refill < 3 seconds Patient's skin is warm and dry. Respiratory: Airway is patent Respiratory effort is even, unlabored, Respiratory pattern is regular, symmetrical, Breath sounds are clear bilaterally. GI: No deficits noted. No signs and/or symptoms were reported involving the gastrointestinal system. : No deficits noted. No signs and/or symptoms were reported regarding the genitourinary system. Derm: No deficits noted. No signs and/or symptoms reported regarding the dermatologic system. Musculoskeletal: No deficits noted. No signs and/or symptoms reported regarding the musculoskeletal system. Historical: - Allergies: 19:42 Codeine; tl4 19:42 Erythromycin; tl4 - Home Meds: 19:42 aspirin 81 mg oral tablet,chewable 1 tab daily [Active]; baclofen 10 mg Oral tablet 1 tl4 tab 4 times per day [Active]; carbidopa-levodopa 25-100 mg Oral tablet 1 tab before meals [Active]; famotidine 10 mg Oral tablet 2 tabs daily [Active]; levothyroxine 25 mcg tablet 1 tab daily [Active]; potassium chloride 20 mEq Oral tablet, extended release 1 tab daily [Active]; tramadol 50 mg Oral tablet 1 tab every 8 hours [Active]; - PMHx: 19:42 Anxiety; Chronic pain; Dementia; depressive disorder; GERD; hemiplegia; Parkinson's 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 - Infectious Disease History:: Denies. - Family history:: not pertinent. - Social history:: Smoking status: Patient/guardian denies using tobacco, the patient reports quitting approximately 3 years ago. Screenin:30 [facility] ED Fall Risk Assessment (Adult) History of falling in the last 3 months, tl4 including since admission Yes- single mechanical fall (1 pt) Confusion or Disorientation Yes (5 pts) Intoxicated or Sedated No (0 pts) Impaired Gait No (0 pts) Mobility Assist Device Used No (0 pt) Altered Elimination No (0 pt) Score/Fall Risk Level 3 or more points = High Risk Oriented to surroundings, Maintained a safe environment, Educated pt \T\ family on fall prevention, incl call for assistance when getting out of bed, Assessed \T\ reinforced patient's understanding of fall precautions, Provided non-skid footwear, Hourly rounding (assess needs \T\ fall precautionary measures) done, Used ambulatory aids as needed (educated on \T\ assisted with), Used gait belt as appropriate. Abuse screen: Denies threats or abuse. Denies injuries from another. Nutritional screening: No deficits noted. Tuberculosis screening: No symptoms or risk factors identified. Assessment: 17:29 Reassessment: No changes from previously documented assessment. Patient and/or family tl4 updated on plan of care and expected duration. Pain level reassessed. Patient is alert, oriented x 3, equal unlabored respirations, skin warm/dry/pink. 18:41 Reassessment: No changes from previously documented assessment. Patient and/or family tl4 updated on plan of care and expected duration. Pain level reassessed. Patient is alert, oriented x 3, equal unlabored respirations, skin warm/dry/pink. 19:39 Reassessment: No changes from previously documented assessment. Patient and/or family tl4 updated on plan of care and expected duration. Pain level reassessed. Patient is alert, oriented x 3, equal unlabored respirations, skin warm/dry/pink. Report called to [facility]. 20:57 Reassessment: No changes from previously documented assessment. Patient and/or family tl4 updated on plan of care and expected duration. Pain level reassessed. Patient is alert, oriented x 3, equal unlabored respirations, skin warm/dry/pink. Pt brief is dry. Pt denies any complaints. Vital Signs: 16:12 BP 154 / 93; Pulse 83; Resp 16; Temp 98.5(O); Pulse Ox 98% on R/A; Weight 80.74 kg; tl4 Height 5 ft. 0 in. ; Pain 8/10; 17:00 BP 120 / 62; Pulse 86; Resp 16; Pulse Ox 97% on R/A; tl4 18:00 BP 125 / 59; Pulse 81; Resp 18; Pulse Ox 95% on R/A; tl4 19:00 BP 128 / 68; Pulse 58; Resp 20; Pulse Ox 97% on R/A; tl4 20:57 BP 121 / 63; Pulse 75; Resp 16; Temp 98.1(O); Pulse Ox 97% on R/A; Pain 0/10; tl4 16:12 Body Mass Index 34.76 (80.74 kg, 152.4 cm) tl4 16:12 Pain Scale: Adult tl4 20:57 Pain Scale: Adult tl4 Delano Coma Score: 17:46 Eye Response: spontaneous(4). Motor Response: localizes pain(5). Verbal Response: melinda confused(4). Total: 13. ED Course: 15:38 Patient arrived in ED. tl4 15:38 Jorje Hamlin RN is Primary Nurse. tl4 15:53 Cyrus Duke MD is Attending Physician. melinda 16:14 Triage completed. tl4 16:16 Arm band placed on right wrist. tl4 16:19 CT Traumagram (Head C Spine CAP wo con) In Process Unspecified. EDMS 17:20 Inserted saline lock: 22 gauge in left hand, using aseptic technique. Blood collected. tl4 17:21 Comprehensive Metabolic Panel Sent. tl4 17:21 Urinalysis w/ reflexes Sent. tl4 17:21 CBC with Diff Sent. tl4 17:21 Straight cath inserted, using sterile technique, Specimen obtained. Patient tolerated tl4 well. 17:22 Urine collected: straight cath specimen, clear. tl4 17:25 Cleaned of incontinence. tl4 19:56 Patient has correct armband on for positive identification. Placed in gown. Bed in low tl4 position. Call light in reach. Side rails up X2. Provided Education on: ED process. Client placed on continuous cardiac and pulse oximetry monitoring. NIBP monitoring applied. Door closed. Noise minimized. Lights dimmed. Moved to private room. Warm blanket given. 19:56 No provider procedures requiring assistance completed. IV discontinued, intact, tl4 bleeding controlled, No redness/swelling at site. Pressure dressing applied. 19:58 Cleaned of incontinence. tl4 Administered Medications: 17:21 Drug: NS 0.9% IV 1000 ml IV at 1 bolus Per protocol; 1000 mL bolus Route: IV; Rate: 1 tl4 bolus; Site: left hand; Delivery: Primary tubing; 19:58 Follow up: Response: No adverse reaction; IV Status: Completed infusion; IV Intake: tl4 1000ml Medication: 19:57 VIS not applicable for this client. tl4 Intake: 19:58 IV: 1000ml; Total: 1000ml. tl4 Outcome: 17:49 Discharge ordered by . melinda 20:58 Discharged to assisted. Report called to [facility] tl4 20:58 Condition: stable 20:58 Discharge instructions given to assisted, Instructed on discharge instructions, follow up and referral plans. Demonstrated understanding of instructions, follow-up care, 20:58 Patient left the ED. tl4 Signatures: Dispatcher [employer] EDMS Cyrus Duke MD MD cha Logdahl, Jorje, RN RN tl4 Corrections: (The following items were deleted from the chart) 19:58 17:25 Straight cath inserted, using sterile technique, Specimen obtained. Patient tl4 tolerated well. tl4
--- NOTE | 2023-07-03 17:50 | EDPHYS ---
Physician Documentation [facility] Name: Sara Man Age: 77 yrs Sex: Female : 1945 Arrival Date: 07/03/2023 Time: 15:34 Bed 17 Private MD: ED Physician Cyrus Duke HPI: 07/02 17:46 This 77 yrs old Female presents to ER via EMS with complaints of Fall Injury. melinda 17:46 Details of fall: The patient fell from a height, off furniture, approximately 3 feet. melinda Onset: The symptoms/episode began/occurred just prior to arrival, today. Associated injuries: The patient sustained injury to the head. Associated injuries: The patient sustained chest, abdomen, right arm and right leg. Historical: - Allergies: 19:42 Codeine; tl4 19:42 Erythromycin; tl4 - Home Meds: 19:42 aspirin 81 mg oral tablet,chewable 1 tab daily [Active]; baclofen 10 mg Oral tablet 1 tl4 tab 4 times per day [Active]; carbidopa-levodopa 25-100 mg Oral tablet 1 tab before meals [Active]; famotidine 10 mg Oral tablet 2 tabs daily [Active]; levothyroxine 25 mcg tablet 1 tab daily [Active]; potassium chloride 20 mEq Oral tablet, extended release 1 tab daily [Active]; tramadol 50 mg Oral tablet 1 tab every 8 hours [Active]; - PMHx: 19:42 Anxiety; Chronic pain; Dementia; depressive disorder; GERD; hemiplegia; Parkinson's 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 - Infectious Disease History:: Denies. - Family history:: not pertinent. - Social history:: Smoking status: Patient/guardian denies using tobacco, the patient reports quitting approximately 3 years ago. ROS: 17:46 Constitutional: Negative for fever, chills, and weight loss, Eyes: Negative for injury, melinda pain, redness, and discharge, ENT: Negative for injury, pain, and discharge, Neck: Negative for injury, pain, and swelling, Cardiovascular: Negative for chest pain, palpitations, and edema, Respiratory: Negative for shortness of breath, cough, wheezing, and pleuritic chest pain, Abdomen/GI: Negative for abdominal pain, nausea, vomiting, diarrhea, and constipation, Back: Negative for injury and pain, : Negative for injury, bleeding, discharge, and swelling, MS/Extremity: Negative for injury and deformity, Skin: Negative for injury, rash, and discoloration, Neuro: Negative for headache, weakness, numbness, tingling, and seizure, Psych: Negative for depression, anxiety, suicide ideation, homicidal ideation, and hallucinations, Allergy/Immunology: Negative for hives, rash, and allergies, Endocrine: Negative for neck swelling, polydipsia, polyuria, polyphagia, and marked weight changes, Hematologic/Lymphatic: Negative for swollen nodes, abnormal bleeding, and unusual bruising, 17:46 Unable to obtain ROS due to baseline dementia, Exam: 17:46 Constitutional: This is a well developed, well nourished patient who is awake, alert, melinda and in no acute distress. Head/Face: Normocephalic, atraumatic. Eyes: Pupils equal round and reactive to light, extra-ocular motions intact. Lids and lashes normal. Conjunctiva and sclera are non-icteric and not injected. Cornea within normal limits. Periorbital areas with no swelling, redness, or edema. ENT: Nares patent. No nasal discharge, no septal abnormalities noted. Tympanic membranes are normal and external auditory canals are clear. Oropharynx with no redness, swelling, or masses, exudates, or evidence of obstruction, uvula midline. Mucous membranes moist. Neck: Trachea midline, no thyromegaly or masses palpated, and no cervical lymphadenopathy. Supple, full range of motion without nuchal rigidity, or vertebral point tenderness. No Meningismus. Chest/axilla: Normal chest wall appearance and motion. Nontender with no deformity. No lesions are appreciated. Cardiovascular: Regular rate and rhythm with a normal S1 and S2. No gallops, murmurs, or rubs. Normal PMI, no JVD. No pulse deficits. Respiratory: Lungs have equal breath sounds bilaterally, clear to auscultation and percussion. No rales, rhonchi or wheezes noted. No increased work of breathing, no retractions or nasal flaring. Abdomen/GI: Soft, non-tender, with normal bowel sounds. No distension or tympany. No guarding or rebound. No evidence of tenderness throughout. Back: No spinal tenderness. No costovertebral tenderness. Full range of motion. Female : Normal external genitalia. Skin: Warm, dry with normal turgor. Normal color with no rashes, no lesions, and no evidence of cellulitis. MS/ Extremity: Pulses equal, no cyanosis. Neurovascular intact. Full, normal range of motion. Neuro: Awake and alert, GCS 15, oriented to person, place, time, and situation. Cranial nerves II-XII grossly intact. Motor strength 5/5 in all extremities. Sensory grossly intact. Cerebellar exam normal. Normal gait. Psych: Awake, alert, with orientation to person, place and time. Behavior, mood, and affect are within normal limits. Vital Signs: 16:12 BP 154 / 93; Pulse 83; Resp 16; Temp 98.5(O); Pulse Ox 98% on R/A; Weight 80.74 kg; tl4 Height 5 ft. 0 in. ; Pain 8/10; 17:00 BP 120 / 62; Pulse 86; Resp 16; Pulse Ox 97% on R/A; tl4 18:00 BP 125 / 59; Pulse 81; Resp 18; Pulse Ox 95% on R/A; tl4 19:00 BP 128 / 68; Pulse 58; Resp 20; Pulse Ox 97% on R/A; tl4 20:57 BP 121 / 63; Pulse 75; Resp 16; Temp 98.1(O); Pulse Ox 97% on R/A; Pain 0/10; tl4 16:12 Body Mass Index 34.76 (80.74 kg, 152.4 cm) tl4 16:12 Pain Scale: Adult tl4 20:57 Pain Scale: Adult tl4 Adam Coma Score: 17:46 Eye Response: spontaneous(4). Motor Response: localizes pain(5). Verbal Response: melinda confused(4). Total: 13. MDM: 15:53 Patient medically screened. melinda 17:48 Differential diagnosis: abrasion, closed head injury, contusion, fracture, laceration, melinda multiple trauma, sprain, strain. Data reviewed: vital signs, nurses notes, EMS record, lab test result(s), radiologic studies, CT scan. Consideration of Admission/Observation Escalation of care including admission/observation considered. I considered the following discharge prescriptions or medication management in the emergency department Medications were administered in the Emergency Department. See MAR. Independent interpretation of the following test(s) in the Emergency Department CT Scan: My interpretation is CT TRAUMA. Historians other than the Patient: EMS: EMS WELL INFORMED. Care significantly affected by the following chronic conditions: DEMENTIA. 07/02 15:54 Order name: CBC with Diff; Complete Time: 18:17 [facility] 07/02 15:54 Order name: Comprehensive Metabolic Panel [facility] 07/02 15:54 Order name: Urinalysis w/ reflexes [facility] 07/02 15:54 Order name: CT Traumagram (Head C Spine CAP wo con); Complete Time: 17:46 melinda Administered Medications: 17:21 Drug: NS 0.9% IV 1000 ml IV at 1 bolus Per protocol; 1000 mL bolus Route: IV; Rate: 1 tl4 bolus; Site: left hand; Delivery: Primary tubing; 19:58 Follow up: Response: No adverse reaction; IV Status: Completed infusion; IV Intake: tl4 1000ml Disposition Summary: 07/03/23 17:49 Discharge Ordered Notes: Location: Home melinda Problem: new melinda Symptoms: have improved melinda Condition: Stable melinda Diagnosis - Fall (on)(from) incline - BED melinda - Dementia in other diseases classified elsewhere without behavioral disturbance melinda Followup: melinda - With: Private Physician - When: 2 - 3 days - Reason: Recheck today's complaints, Continuance of care, Re-evaluation by your physician Discharge Instructions: - Discharge Summary Sheet melinda - Dementia melinda - Fall Prevention in the Home, Adult melinda - Fall Prevention in the Home, Adult, [id number] melinda - Dementia, [id number] melinda Forms: - Medication Reconciliation Form melinda - Thank You Letter melinda - Antibiotic Education melinda - Prescription Opioid Use melinda - Patient Portal Instructions melinda - Leadership Thank You Letter melinda - SBAR form sp Signatures: Dispatcher [employer] Cyrus Leija MD MD cha Logdahl, Toni, RN RN tl4
[2023-07-03 17:55] LABS: Specific Gravity 1.008 (1.005-1.030); Urine Bilirubin NEGATIVE (Negative); Urine Blood Negative (Negative); Urine Clarity Clear (Clear); Urine Color Colorless (Yellow); Urine Glucose NEGATIVE (Negative); Urine Ketones NEGATIVE (Negative); Urine Microscopic Reflex YN NO UMIC; Urine Nitrite NEGATIVE (Negative); Urine Protein NEGATIVE (Negative); Urine Urobilinogen Normal (Normal)
[2023-07-03 17:56] LABS: Absolute Eosinophils 0.1 K/uL (0-0.5); Absolute Monocytes 0.5 K/uL (0.1-1.3); Absolute Neutrophil 2.5 K/uL (1.8-8.0); Basophils % 0.4 % (0-1.3); Eosinophils % 1.5 % (0-4.4); Hematocrit 36.2 % (36.0-45.0); Hemoglobin 12.2 g/dL (12.0-15.0); Lymphocytes % 23.8 % (15.3-44.8); MCH 30.1 pg (27.0-35.0); MCHC 33.6 g/dL (32.0-36.0); MCV 89.4 fL (80-100); MPV 9.3 fL (7.6-11.3); Monocytes % 11.6 % (3.3-12.3); Neutrophils % 62.7 % (41.7-73.7); Nucleated Red Blood Cells % 0.7 % (0-0); Platelets 197 thou/uL (152-406); RBC Red Blood Cell Count 4.05 M/uL (3.86-4.86); Red Cell Distribution Width 13.7 % (12.1-15.2)
[2023-07-03 18:12] LABS: AST/SGOT 8 U/L (15-37); Albumin 3.4 g/dL (3.4-5.0); Albumin/Globulin Ratio 1.1 (1.1-1.8); Alkaline Phosphatase 88 U/L (45-117); Anion Gap 8.1 mEq/L (5.0-15.0); BUN Blood Urea Nitrogen 10 mg/dL (7-18); Bicarbonate 27 mEq/L (21-32); Bilirubin Total 0.4 mg/dL (0.2-1.0); Globulin 3.2 g/dL (2.3-3.5); Glomerular Filtration Rate 91 ml/min (=/>90); Glucose Level 101 mg/dL (74-106); Potassium 4.1 mEq/L (3.5-5.1); Protein, Total 6.6 g/dL (6.4-8.2); Sodium Level 138 mEq/L (136-145)
[2023-07-03 18:31] LABS: ALT/SGPT < 10 U/L (13-56)
[2023-07-04 03:23] VITALS: BP 121/63; TEMP 98.1; O2SAT 97
== END 2023-07-03 20:58 | disposition home or self-care (01) ==
LOC: ER 15:34
DX: M25.511 Pain in right shoulder (principal); M25.551 Pain in right hip; M79.604 Pain in right leg; W06.XXXA Fall from bed, initial encounter; G20.A1 Parkinson's disease without dyskinesia, without mention of fluctuations; F02.80 Dementia in other diseases classified elsewhere, unspecified severity, without behavioral disturbance, psychotic disturbance, mood disturbance, and anxiety; Z88.3 Allergy status to other anti-infective agents; Z88.5 Allergy status to narcotic agent; Z79.82 Long term (current) use of aspirin
CPT/HCPCS: 96361; 85025; 36415; 81003; 80053; 70450; 71250; 72125; 51702; 96360; 99285; J7030

== ENCOUNTER 2023-10-01 21:36 | Emergency (ER) | payer OTHER ==
--- OUTSIDE RECORDS SUMMARY | 2023-10-01 21:39 | XMS REPORT | Continuity of Care Document ---
Author Name Unknown Address [address] [facility] [address] [place] [address] [facility] thconnect Address [address] [facility] [place] [address] Care Team Providers Care Painting Supervisor Name Role Phone JULIÁN ENGEL Primary Care Physician Unavailab SOLOMON Russell Attending Clinician Unavail able SOLOMON SOSA Attending Clinician Unavail able Doctor Unassigned, Nunda Attending Clinician U jesusita Sosa MD, Solomon Ng Attending Clinician Payers Payer Name Policy Type Policy Number Effective Date Expirati on Date Source MEDICARE PART A \T\ B [id number] 2010 00:00:00 [place] [id number] 2017 00:00:00 Problems Condition Name Condition Details Condition Category Status Onset Date Resolution Date Last Treatment Date Treating Clinician Comments Source Generalize d weakness Generalize d weakness Disease Active 11-14 00:00: 00 [facility] Chronic pain syndrome Chronic pain syndrome Disease Active 11-14 00:00: 00 [facility] Vitamin D deficiency Vitamin D deficiency Disease Active 11-14 00:00: 00 [facility] Does not transfer from wheelchair to chair Does not transfer from wheelchair to chair Disease Active 11-14 00:00: 00 [facility] Allergies, Adverse Reactions, Alerts Allergy Name Allergy Type Status Severity Reaction(s) Onset Date Inactive Date Treating Clinician Comments Source Matthias Carmona ty to adverse reaction s Active Other - See comments 11-14 00:00: 00 [facility] Duloxeti ne Propensi ty to adverse reaction s Active Other - See comments 11-14 00:00: 00 [facility] Erythrom ycin Propensi ty to adverse reaction s Active Other - See comments 11-14 00:00: 00 [facility] CODEINE DRUG INGREDI Active Other-Cmnt 11-14 00:00: 00 [facility] DULOXETI NE DRUG INGREDI Active Other-Cmnt 11-14 00:00: 00 [facility] ERYTHROM YCIN DRUG Active Other-Cmnt 11-14 00:00: 00 [facility] Social History Social Habit Start Date Stop Date Quantity Comments Source History of tobacco use Cigarette Smoker [facility] Sexual orientation [facility] Alcohol intake 2023-03-07 00:00:00 2023-03-07 00:00:00 Current non-drinker of alcohol (finding) [facility] History of Social function 2023-03-07 00:00:00 2023-03-07 00:00:00 [facility] Tobacco use and exposure 2020-01-25 00:00:00 2020-01-25 00:00:00 Former smokeless tobacco user [facility] Sex Ass[birth year] At 1945 00:00:00 1945 00:00:00 [facility] Smoking Status Start Date Stop Date Source Ex-smoker 2020-01-25 00:00:00 2020-01-25 00:00:00 [facility] Medications Ordered Medication Name Filled Medication Name Start Date Stop Date Current Medication? Ordering Clinician Indication Dosage Frequency Signature (SIG) Comments Components Source alendronate 70 mg tablet 2019-03 007 00:00: [address] [facility] mirtazapine 30 mg tablet 2019-03 005 00:00: [address] [facility] aspirin 81 mg chewable tablet 10-02 15:46: 51 Yes 81mg Take 81 mg by mouth daily. [facility] LORazepam (ATIVAN) 0.5 mg tablet 10-02 15:46: 51 Yes .5mg Take 0.5 mg by mouth every 8 (eight) hours as needed. [facility] baclofen 10 mg tablet 10-02 15:46: 51 Yes 10mg Take 10 mg by mouth 3 (three) times daily. [facility] menthol/cam phor (BIOFREEZE TOPICAL) 10-02 15:46: 51 Yes Apply to area(s). [facility] Diclofenac Sodium 1 % gel 10-02 15:46: 51 Yes Apply to area(s) 2 (two) times daily. [facility] docusate 100 mg capsule 10-02 15:46: 51 Yes 100mg Take 100 mg by mouth daily. [facility] melatonin 3 mg tablet 10-02 15:46: 51 Yes 3mg Take 3 mg by mouth at bedtime. [facility] meloxicam 7.5 mg tablet 10-02 15:46: 51 Yes 7.5mg Take 7.5 mg by mouth daily. [facility] psyllium 3.4 gram packet 10-02 15:46: 51 Yes 1{packe t} Take 1 Packet by mouth daily. [facility] polyethlene glycol powder packet 10-02 15:46: 51 Yes Take by mouth. [facility] oxymetazoli ne (NASAL SPRAY 12 HOUR) 0.05 % nasal spray 10-02 15:46: 51 Yes 1{spray } Use 1 [place] in each nostril 2 (two) times daily. [facility] omeprazole 20 mg capsule 10-02 15:46: 51 Yes 20mg Take 20 mg by mouth daily. [facility] pentazocine -naloxone 50-0.5 mg tablet 10-02 15:46: 51 Yes 1{tbl} Take 1 tablet by mouth every 4 (four) hours as needed for Pain. [facility] sennosides- docusate sodium 8.6-50 mg per tablet 10-02 15:46: 51 Yes 1{tbl} Take 1 tablet by mouth daily. [facility] traMADOL (ULTRAM) 50 mg tablet 10-02 15:46: 51 Yes 50mg Take 50 mg by mouth every 6 (six) hours as needed. [facility] tramadol HCl (TRAMADOL ORAL) 10-02 15:46: 51 Yes 100mg Take 100 mg by mouth every 6 (six) hours as needed for Pain (scale 4-6). [facility] carbidopa-l evodopa 25-100 mg SR tablet 10-02 15:46: 51 Yes 1{tbl} Take 1 tablet by mouth before meals. [facility] Cholecalcif juan antonio, Vitamin D3, 1,000 unit capsule 10-02 15:46: 51 Yes 2000U Take 2,000 Units by mouth daily. [facility] Vital Signs Vital Name Observation Time Observation Value Comments S ource Systolic blood pressure 2023-03-07 14:20:00 111 mm[Hg] [facility] Diastolic blood pressure 2023-03-07 14:20:00 69 mm[Hg] [facility] Heart rate 2023-03-07 14:20:00 84 /min [facility] Body height 2023-03-07 14:20:00 157.5 cm [facility] Oxygen saturation in Arterial blood by Pulse oximetry 2023-03-07 14:20:00 96 /min [facility] Procedures Procedure Date / Time Performed Performing Clinicia n Source EXTERNAL PROVIDER RECORDS 2023-03-14 06:01:00 Doctor Unassigned, Nunda [facility] Encounters Start Date/Time End Date/Time Encounter Type Admission Type Attending Clinicians Care Facility Care Department Encounter ID Source 2023-06-06 09:20:00 2023-06-06 09:20:00 Outpatient [facility] [id number] [facility] 2023-03-14 00:00:00 2023-03-14 00:00:00 Orders Only Doctor Unassigned, Nunda [facility] [id number] [facility] 2023-03-07 08:00:00 2023-03-07 09:27:38 Outpatient [facility] [id number] [facility] 2023-03-07 08:00:00 2023-03-07 09:27:38 [facility] [id number] [facility] 2023-02-11 12:00:00 2023-02-11 12:00:00 Outpatient [facility] [id number] [facility] 2020-01-25 14:20:00 2020-01-25 14:20:00 Outpatient [facility] [id number] [facility] 2020-01-25 14:20:00 2020-01-25 14:20:00 Outpatient [facility] [id number] [facility]
[2023-10-01 23:28] LABS: Absolute Eosinophils 0.2 K/uL (0-0.5); Absolute Lymphocytes (CBC) 1.1 K/uL (0.7-4.9); Absolute Monocytes 0.4 K/uL (0.1-1.3); Absolute Neutrophil 2.8 K/uL (1.8-8.0); Eosinophils % 3.3 % (0-4.4); Hemoglobin 11.7 g/dL (12.0-15.0); Lymphocytes % 25.2 % (15.3-44.8); MCH 29.5 pg (27.0-35.0); MCHC 32.4 g/dL (32.0-36.0); MCV 90.9 fL (80-100); MPV 9.4 fL (7.6-11.3); Monocytes % 9.8 % (3.3-12.3); Neutrophils % 60.7 % (41.7-73.7); Platelets 182 thou/uL (152-406); RBC Red Blood Cell Count 3.96 M/uL (3.86-4.86)
[2023-10-01 23:56] LABS: Albumin 3.3 g/dL (3.4-5.0); Albumin/Globulin Ratio 1.1 (1.1-1.8); Alkaline Phosphatase 70 U/L (45-117); Anion Gap 4.7 mEq/L (5.0-15.0); BUN Blood Urea Nitrogen 13 mg/dL (7-18); Bicarbonate 29 mEq/L (21-32); Bilirubin Total 0.4 mg/dL (0.2-1.0); Globulin 2.9 g/dL (2.3-3.5); Glomerular Filtration Rate 90 ml/min (=/>90); Glucose Level 103 mg/dL (74-106); Potassium 4.7 mEq/L (3.5-5.1); Protein, Total 6.2 g/dL (6.4-8.2); Sodium Level 139 mEq/L (136-145)
[2023-10-02] LABS: ALT/SGPT < 14 U/L (13-56); AST/SGOT < 10 U/L (15-37)
[2023-10-02 00:13] LABS: SARS-CoV-2 Antigen CONTROL BLUE LINE VIS/BG OK; SARS-CoV-2 Antigen Rapid Res Negative (Negative)
[2023-10-02 00:46] LABS: Specific Gravity 1.013 (1.005-1.030); Sqamous Epithelial <5 /HPF (None Seen); Urine Bacteria 20-50 /HPF (<20); Urine Bilirubin NEGATIVE (Negative); Urine Blood Negative (Negative); Urine Clarity Extremely Turbid (Clear); Urine Color Light-Yellow (Yellow); Urine Culture Reflex Order REFLEXED; Urine Glucose NEGATIVE (Negative); Urine Ketones NEGATIVE (Negative); Urine Microscopic Reflex YN ORDER UMIC; Urine Mucus Slight /HPF (None Seen); Urine Nitrite 2+ (Negative); Urine Protein NEGATIVE (Negative); Urine RBC <5 /HPF (None Seen); Urine Urobilinogen Normal (Normal); Urine WBC 20-50 /HPF (<5); Urine WBC Clump Rare /HPF (None Seen); Urine Yeast (Budding) Few /HPF (None Seen)
--- NOTE | 2023-10-02 01:11 | ER ---
Nurse's Notes [facility] Name: Sara Man Age: 78 yrs Sex: Female : 1945 Arrival Date: 10/01/2023 Time: 21:36 Bed 17 Private MD: Diagnosis: UTI/ Urinary tract infection, site not specified Presentation: 09/30 21:40 Chief complaint: EMS states: Brought in by EMS from [facility] for "mumbling pc2 more than usual" BGL 121. 21:40 Coronavirus screen: At this time, the client does not indicate any symptoms associated pc2 with coronavirus-19. Ebola Screen: No symptoms or risks identified at this time. Initial Sepsis Screen: Does the patient meet any 2 criteria? No. Patient's initial sepsis screen is negative. Does the patient have a suspected source of infection? No. Patient's initial sepsis screen is negative. Risk Assessment: Do you want to hurt yourself or someone else? Patient reports no desire to harm self or others. Onset of symptoms was October 01, 2023. Care prior to arrival: Glucose check: 121. 21:40 Method Of Arrival: EMS: [facility] pc2 21:40 Acuity: IZABELA 3 pc2 Triage Assessment: 22:02 General: Appears in no apparent distress. comfortable, Behavior is calm, appropriate pc2 for age. Pain: Denies pain. EENT: No signs and/or symptoms were reported regarding the EENT system. Neuro: Level of Consciousness is awake, alert, Oriented to person. Cardiovascular: Capillary refill < 3 seconds Patient's skin is warm and dry. Respiratory: Airway is patent Respiratory effort is even, unlabored, Respiratory pattern is regular, symmetrical. GI: Abdomen is non-distended. : Parent/caregiver report the patient having just completed abx for UTI symptoms. Derm: Skin is pink, warm \\T\\ dry. Musculoskeletal: Capillary refill < 3 seconds. Historical: - Allergies: 22:05 Codeine; pc2 22:05 Erythromycin; pc2 22:05 Cymbalta; pc2 - PMHx: 22:05 Anxiety; Chronic pain; Dementia; depressive disorder; hemiplegia; GERD; Parkinson's pc2 disease; - Immunization history:: Adult Immunizations unknown. - Infectious Disease History:: Denies. - Social history:: Smoking status: Patient denies any tobacco usage or history of. Screenin:08 [facility] ED Fall Risk Assessment (Adult) History of falling in the last 3 months, pc2 including since admission No falls in past 3 months (0 pts) Confusion or Disorientation Yes (5 pts) Intoxicated or Sedated No (0 pts) Impaired Gait Yes (1 pt) Mobility Assist Device Used No (0 pt) Altered Elimination Yes (1 pt) Score/Fall Risk Level 3 or more points = High Risk Oriented to surroundings, Hourly rounding (assess needs \\T\\ fall precautionary measures) done, Utilized family, sitter, or virtual administrative intern as indicated. Abuse screen: Denies threats or abuse. Denies injuries from another. Nutritional screening: No deficits noted. Tuberculosis screening: No symptoms or risk factors identified. Assessment: 22:08 Reassessment: see triage. pc2 10/01 00:31 Reassessment: Patient appears in no apparent distress at this time. No changes from pc2 previously documented assessment. Patient and/or family updated on plan of care and expected duration. Pain level reassessed. Pt resting quietly in bed with eyes closed, resp even and unlabored. Family remains at bedside. 01:53 General: Brief change perfomed. pc2 02:23 General: [facility] ETA 45 minutes.. cm10 03:00 Reassessment: Patient appears in no apparent distress at this time. Patient and/or pc2 family updated on plan of care and expected duration. Pain level reassessed. Vital Signs: 09/30 21:40 BP 140 / 73; Pulse 73; Resp 16; Temp 98.2; Pulse Ox 96% on R/A; pc2 23:30 BP 103 / 54; Pulse 62; Resp 16; Pulse Ox 96% ; pc2 10/01 00:31 BP 119 / 83; Pulse 74; Resp 16; Pulse Ox 100% on R/A; pc2 01:39 BP 103 / 54; Pulse 69; Resp 17; Pulse Ox 99% on R/A; pc2 03:00 BP 113 / 65; Pulse 71; Resp 16; Pulse Ox 99% on R/A; pc2 ED Course: 09/30 21:45 Patient arrived in ED. af3 21:52 Sri Fish PA-C is PHCP. sb4 21:52 Cyrus Duke MD is Attending Physician. sb4 21:58 Client placed on continuous cardiac and pulse oximetry monitoring. NIBP monitoring pc2 applied. 22:02 Triage completed. pc2 22:05 Arm band placed on. pc2 22:09 No provider procedures requiring assistance completed. pc2 23:04 SARS RAPID Sent. pc2 23:04 Flu Sent. pc2 23:17 Initial lab(s) drawn, by me, sent to lab. Inserted saline lock: 22 gauge in left cm10 forearm, using aseptic technique. Blood collected. 23:30 Head Brain Wo Cont CT In Process Unspecified. EDMS 23:36 Amina Lujan, RN is Primary Nurse. pc2 23:38 Patient has correct armband on for positive identification. Placed in gown. Bed in low pc2 position. Call light in reach. Side rails up X2. Adult w/ patient. Provided Education on: POC and time frame. 10/01 02:01 Report given to Report called to TUAN Parmar at [facility]. pc2 03:15 IV discontinued, intact, bleeding controlled, No redness/swelling at site. Pressure pc2 dressing applied. 03:31 Bedside report given to EMS to transport patient back to half-way. pc2 Administered Medications: 01:40 Drug: Rocephin IV 1 grams IV at calculated rate once; Given slow IV push per pharmacy pc2 instructions Route: IV; Rate: calculated rate; Site: left forearm; 01:54 Follow up: Response: No adverse reaction; IV Status: Completed infusion; IV Intake: [id number] Medication: 09/30 23:38 VIS not applicable for this client. pc2 Intake: 10/01 01:54 IV: 10ml; Total: 10ml. pc2 Outcome: 01:10 Discharge ordered by MD. medley 01:52 Discharged to [place] [id number] 01:52 Condition: stable 01:52 Discharge instructions given to half-way, EMS, Instructed on discharge instructions, follow up and referral plans. medication usage, Demonstrated understanding of instructions, follow-up care, medications, Prescriptions given X 1, 03:33 Patient left the ED. pc2 Signatures: Dispatcher [employer] EDMS Sri Fish PA-C PA-C sb4 Shahnaz Durant, RN RN cm10 Amina Lujan, RN RN pc2 Radha Roldan af3 Corrections: (The following items were deleted from the chart) 03:32 00:31 Reassessment: Patient appears in no apparent distress at this time. No changes pc2 from previously documented assessment. Patient and/or family updated on plan of care and expected duration. Pain level reassessed. Patient is alert, oriented x 3, equal unlabored respirations, skin warm/dry/pink. Pt resting quietly in bed with eyes closed, resp even and unlabored. Family remains at bedside. pc2
--- NOTE | 2023-10-02 01:11 | EDPHYS ---
Physician Documentation [facility] Name: Sara Man Age: 78 yrs Sex: Female : 1945 Arrival Date: 10/01/2023 Time: 21:36 Bed 17 Private MD: ED Physician Cyrus Duke HPI: 09/30 22:07 This 78 yrs old Female presents to ER via EMS with complaints of AMS. sb4 22:07 long term called EMS because they checked her BP and it was low, also stated that sb4 she has been mumbling more than her baseline. family states that they have not noticed any differences in her mentation. BP is normal in the ED. patient has had her night meds, is very sleepy, difficult to arouse, which daughter states is normal. Historical: - Allergies: 22:05 Codeine; pc2 22:05 Erythromycin; pc2 22:05 Cymbalta; pc2 - PMHx: 22:05 Anxiety; Chronic pain; Dementia; depressive disorder; hemiplegia; GERD; Parkinson's pc2 disease; - Immunization history:: Adult Immunizations unknown. - Infectious Disease History:: Denies. - Social history:: Smoking status: Patient denies any tobacco usage or history of. ROS: 22:07 Unable to obtain ROS due to altered mental status, baseline dementia, sb4 Exam: 22:07 Constitutional: This is a well developed, well nourished patient who is awake, alert, sb4 and in no acute distress. Head/Face: Normocephalic, atraumatic. Eyes: Extra-ocular motions intact. Periorbital areas with no swelling, redness, or edema. ENT: Mucous membranes moist. Cardiovascular: Regular rate and rhythm with a normal S1 and S2. Respiratory: Lungs have equal breath sounds bilaterally, clear to auscultation and percussion. No rales, rhonchi or wheezes noted. No increased work of breathing, no retractions or nasal flaring. Abdomen/GI: Soft, non-tender, no distension. Skin: Warm, dry with normal turgor. Normal color with no rashes, no lesions, and no evidence of cellulitis. Vital Signs: 21:40 BP 140 / 73; Pulse 73; Resp 16; Temp 98.2; Pulse Ox 96% on R/A; pc2 23:30 BP 103 / 54; Pulse 62; Resp 16; Pulse Ox 96% ; pc2 07 00:31 BP 119 / 83; Pulse 74; Resp 16; Pulse Ox 100% on R/A; pc2 01:39 BP 103 / 54; Pulse 69; Resp 17; Pulse Ox 99% on R/A; pc2 03:00 BP 113 / 65; Pulse 71; Resp 16; Pulse Ox 99% on R/A; pc2 MDM: 09/30 21:52 Patient medically screened. 4 10/01 01:10 Data reviewed: vital signs, nurses notes, EMS record, long term records, lab test sb4 result(s), radiologic studies, and as a result, I will discharge patient. Counseling: I had a detailed discussion with the patient and/or guardian regarding the historical points, exam findings, and any diagnostic results supporting the discharge/admit diagnosis, lab results, radiology results, to return to the emergency department if symptoms worsen or persist or if there are any questions or concerns that arise at home. 09/30 22:04 Order name: CBC with Diff; Complete Time: 23:58 4 09/30 22:04 Order name: CMP; Complete Time: 00:01 sb4 09/30 22:04 Order name: Urinalysis w/ reflexes; Complete Time: 01:06 4 09/30 22:04 Order name: SARS RAPID; Complete Time: 00:14 sb4 09/30 22:04 Order name: Flu; Complete Time: 00:15 sb4 10/01 01:08 Order name: Urine Culture EDMA 09/30 22:04 Order name: Head Brain Wo Cont CT 4 09/30 22:04 Order name: IV Saline Lock; Complete Time: 23:38 sb4 09/30 22:04 Order name: Labs collected and sent; Complete Time: 23:38 4 09/30 22:04 Order name: Straight Cath - Urine; Complete Time: 23:04 sb4 Administered Medications: 01:40 Drug: Rocephin IV 1 grams IV at calculated rate once; Given slow IV push per pharmacy pc2 instructions Route: IV; Rate: calculated rate; Site: left forearm; 01:54 Follow up: Response: No adverse reaction; IV Status: Completed infusion; IV Intake: [id number] Disposition: 01:11 Chart complete. sb4 04:20 Co-signature as Attending Physician, Cyrus ESPARZA I agree with the assessment and melinda plan of care. Disposition Summary: 10/02/23 01:10 Discharge Ordered Notes: Location: Home sb4 Problem: new sb4 Symptoms: are unchanged sb4 Condition: Stable sb4 Diagnosis - UTI/ Urinary tract infection, site not specified sb4 Followup: sb4 - With: Emergency Department - When: As needed - Reason: Trouble breathing, Worsening of condition Discharge Instructions: - Discharge Summary Sheet sb4 - Urinary Tract Infection, Adult, [id number] sb4 Forms: - Antibiotic Education sb4 - Patient Portal Instructions sb4 - Leadership Thank You Letter sb4 Prescriptions: - Augmentin 875-125 mg Oral Tablet - take 1 tablet ORAL route every 12 hours for 10 days; 20 tablet; Refills: 0, sb4 Product Selection Permitted Signatures: Dispatcher [employer] EDCyrus Cavanaugh MD MD cha Brown, Sophia, PA-C PALeticiaC sb4 Amina Lujan, RN RN pc2 Corrections: (The following items were deleted from the chart) 09/30 22:04 22:04 CBC+H.LAB.BRZ ordered. EDMS EDMS 22:04 22:04 COMPREHENSIVE METABOLIC PANEL+C.LAB.BRZ ordered. EDMS EDMS 22:04 22:04 Urinalysis+U.LAB.BRZ ordered. EDMS EDMS 22:05 22:04 SARS-COV-2 Antigen Rapid+I.LAB.BRZ ordered. EDMS EDMS 22:05 22:04 Influenza Screen (A \T\ B)+BA.LAB.BRZ ordered. EDMS EDMS
[2023-10-02] MEDS ORDERED: CEFTRIAXONE 1000 MG/VIAL ONE (01:26)
[2023-10-02 03:39] VITALS: TEMP 98.2
[2023-10-02 04:03] VITALS: BP 113/65; O2SAT 99
--- NOTE | 2023-10-04 10:29 | RAD REPORT ---
EXAM DESCRIPTION: CT - Head Brain Wo Cont - 10/02/2023 6:57 am [facility]: CT HEAD WITHOUT IV CONTRAST CLINICAL HISTORY: 78 years Female; CONFUSED; Bed Name: 17 TECHNIQUE: Noncontrast CT head. All CT scans at this facility use dose modulation, iterative reconstruction, and/or weight based dosi ng when appropriate to reduce radiation dose to as low as reasonably achievable. COMPARISON: None. FINDINGS: Parenchyma: No acute hemorrhage, large territorial infarction, or mass effect. Scattered a nd confluent hypodensities in the white matter, likely chronic small vessel ischemic changes. Ventricles and extra-axial spaces: Appropriate for age. Visualized paranasal sinuses: Clear. Mastoid air cells: Clear. Bones: No acute focal abnormality. Additional comment: Intracranial atherosclerosis. IMPRESSION: 1. No acute intracranial findings. 2. Chronic microvascular ischemic changes. Electronically signed by: Tracy Pena MD 10/01/2023 11:51 PM CDT RP Z9 Due to temporary technical issues with the PACS/Fluency reporting system, reports are being signed by the in house radiologist without review as a courtesy to ensure prompt reporting. The interpreting r adiologist is fully responsible for the content of the report.
== END 2023-10-02 03:33 | disposition home or self-care (01) ==
LOC: ER 21:36
DX: N39.0 Urinary tract infection, site not specified (principal); Z11.52 Encounter for screening for COVID-19
CPT/HCPCS: 85025; 81001; 36415; 80053; 87804 ×2; 70450; 96374; 99284; 87811; J0696

== ENCOUNTER 2024-05-30 16:54 | Inpatient (IN) | payer OTHER, MEDICAID ==
[2024-05-30] MEDS: PIPER TAZO 3.375 GM in NA CHLORIDE 0.9% 100 ML IV ONE (01:00)
--- OUTSIDE RECORDS SUMMARY | 2024-05-30 16:57 | XMS REPORT | Continuity of Care Document ---
Author Name Unknown Address [address] [facility] [address] [facility] [address] [place] [address] [facility] thconnect Address [address] [facility] [place] [address] Care Team Providers Care Electromechanical Assembly Technician Name Role Phone JULIÁN ENGEL Primary Care Physician Unavailab SOLOMON Russell Attending Clinician Unavail able SOLOMON SOSA Attending Clinician Unavail able Doctor Unassigned, [place] Attending Clinician U jesusita Sosa MD, Solomon Ng Attending Clinician Payers Payer Name Policy Type Policy Number Effective Date Expirati on Date Source MEDICARE PART A \T\ B [id number] 2010 00:00:00 [place] [id number] 2017 00:00:00 Problems Condition Name Condition Details Condition Category Status Onset Date Resolution Date Last Treatment Date Treating Clinician Comments Source Generalize d weakness Generalize d weakness Disease Active 11-14 00:00: 00 [facility] Chronic pain syndrome Chronic pain syndrome Disease Active 11-14 00:00: 00 [facility] Vitamin D deficiency Vitamin D deficiency Disease Active 11-14 00:00: 00 [facility] Does not transfer from wheelchair to chair Does not transfer from wheelchair to chair Disease Active 11-14 00:00: 00 [facility] Allergies, Adverse Reactions, Alerts Allergy Name Allergy Type Status Severity Reaction(s) Onset Date Inactive Date Treating Clinician Comments Source Matthias Carmona ty to adverse reaction s Active Other - See comments 11-14 00:00: 00 [facility] Duloxeti ne Propensi ty to adverse reaction s Active Other - See comments 11-14 00:00: 00 [facility] Erythrom ycin Propensi ty to adverse reaction s Active Other - See comments 11-14 00:00: 00 [facility] CODEINE DRUG INGREDI Active Other-Cmnt 11-14 00:00: 00 [facility] DULOXETI NE DRUG INGREDI Active Other-Cmnt 11-14 00:00: 00 [facility] ERYTHROM YCIN DRUG Active Other-Cmnt 11-14 00:00: 00 [facility] Social History Social Habit Start Date Stop Date Quantity Comments Source History of tobacco use Cigarette Smoker [facility] Sexual orientation [facility] Alcohol intake 2023-03-07 00:00:00 2023-03-07 00:00:00 Current non-drinker of alcohol (finding) [facility] History of Social function 2023-03-07 00:00:00 2023-03-07 00:00:00 [facility] Tobacco use and exposure 2020-01-25 00:00:00 2020-01-25 00:00:00 Former smokeless tobacco user [facility] Sex [birth year] At 1945 00:00:00 1945 00:00:00 [facility] Smoking Status Start Date Stop Date Source Ex-smoker 2020-01-25 00:00:00 2020-01-25 00:00:00 [facility] Medications Ordered Medication Name Filled Medication Name Start Date Stop Date Current Medication? Ordering Clinician Indication Dosage Frequency Signature (SIG) Comments Components Source alendronate 70 mg tablet 2019-03 007 00:00: 00 Yes [facility] mirtazapine 30 mg tablet 2019-03 005 00:00: 00 Yes [facility] aspirin 81 mg chewable tablet 10-02 15:46: 51 Yes 81mg Take 81 mg by mouth daily. [facility] LORazepam (ATIVAN) 0.5 mg tablet 10-02 15:46: 51 Yes .5mg Take 0.5 mg by mouth every 8 (eight) hours as needed. [facility] baclofen 10 mg tablet 10-02 15:46: 51 Yes 10mg Take 10 mg by mouth 3 (three) times daily. [facility] menthol/cam phor (BIOFREEZE TOPICAL) 10-02 15:46: 51 Yes Apply to area(s). [facility] Diclofenac Sodium 1 % gel 10-02 15:46: 51 Yes Apply to area(s) 2 (two) times daily. [facility] docusate 100 mg capsule 10-02 15:46: 51 Yes 100mg Take 100 mg by mouth daily. [facility] melatonin 3 mg tablet 10-02 15:46: 51 Yes 3mg Take 3 mg by mouth at bedtime. [facility] meloxicam 7.5 mg tablet 10-02 15:46: 51 Yes 7.5mg Take 7.5 mg by mouth daily. [facility] psyllium 3.4 gram packet 10-02 15:46: 51 Yes 1{packe t} Take 1 Packet by mouth daily. [facility] polyethlene glycol powder packet 10-02 15:46: 51 Yes Take by mouth. [facility] oxymetazoli ne (NASAL SPRAY 12 HOUR) 0.05 % nasal spray 10-02 15:46: 51 Yes 1{spray } Use 1 [place] in each nostril 2 (two) times daily. [facility] omeprazole 20 mg capsule 10-02 15:46: 51 Yes 20mg Take 20 mg by mouth daily. [facility] pentazocine -naloxone 50-0.5 mg tablet 10-02 15:46: 51 Yes 1{tbl} Take 1 tablet by mouth every 4 (four) hours as needed for Pain. [facility] sennosides- docusate sodium 8.6-50 mg per tablet 10-02 15:46: 51 Yes 1{tbl} Take 1 tablet by mouth daily. [facility] traMADOL (ULTRAM) 50 mg tablet 10-02 15:46: 51 Yes 50mg Take 50 mg by mouth every 6 (six) hours as needed. [facility] tramadol HCl (TRAMADOL ORAL) 10-02 15:46: 51 Yes 100mg Take 100 mg by mouth every 6 (six) hours as needed for Pain (scale 4-6). [facility] carbidopa-l evodopa 25-100 mg SR tablet 10-02 15:46: 51 Yes 1{tbl} Take 1 tablet by mouth before meals. [facility] Cholecalcif juan antonio, Vitamin D3, 1,000 unit capsule 10-02 15:46: 51 Yes 2000U Take 2,000 Units by mouth daily. [facility] Vital Signs Vital Name Observation Time Observation Value Comments S ource Systolic blood pressure 2023-03-07 14:20:00 111 mm[Hg] [facility] Diastolic blood pressure 2023-03-07 14:20:00 69 mm[Hg] [facility] Heart rate 2023-03-07 14:20:00 84 /min [facility] Body height 2023-03-07 14:20:00 157.5 cm [facility] Oxygen saturation in Arterial blood by Pulse oximetry 2023-03-07 14:20:00 96 /min [facility] Procedures Procedure Date / Time Performed Performing Clinicia n Source EXTERNAL PROVIDER RECORDS 2023-03-14 06:01:00 Doctor Unassigned, [place]iloh [facility] Encounters Start Date/Time End Date/Time Encounter Type Admission Type Attending Clinicians Care Facility Care Department Encounter ID Source 2023-06-06 09:20:00 2023-06-06 09:20:00 Outpatient SOLOMON PEREZ HOWARD [facility] [id number] [facility] 2023-03-14 00:00:00 2023-03-14 00:00:00 Orders Only Doctor Unassigned, [place] [facility] [id number] [facility] 2023-03-07 08:00:00 2023-03-07 09:27:38 Outpatient SOLOMON PEREZ HOWARD [facility] [id number] [facility] 2023-03-07 08:00:00 2023-03-07 09:27:38 [facility] [id number] [facility] 2023-02-11 12:00:00 2023-02-11 12:00:00 Outpatient SOLOMON PEREZ HOWARD [facility] [id number] [facility] 2020-01-25 14:20:00 2020-01-25 14:20:00 Outpatient SOLOMON PEREZ HOWARD [facility] [id number] [facility] 2020-01-25 14:20:00 2020-01-25 14:20:00 Outpatient SOLOMON PEREZ HOWARD [facility] [id number] [facility]
--- NOTE | 2024-05-30 17:57 | RAD REPORT ---
EXAM: Chest Single View HISTORY: 78 years Female FEVER COMPARISON: 01/21/2023 FINDINGS: LUNGS/PLEURA: Low lung volumes. Possible airspace disease at the left lung base though this is not we ll assessed on this portable view. CARDIAC/MEDIASTINUM: Mild cardiomegaly UPPER ABDOMEN: No significant abnormality. BONES: No acute abnormality. LINES/TUBES/OTHER: N/A IMPRESSION: Possible airspace disease at the left lung base. Consider a dedicated PA and lateral to better assess when the patient's condition permits. Alternatively, this area should be visible on the pending CT of the abdomen and pelvis.
[2024-05-30 18:09] LABS: Absolute Lymphocytes (CBC) 0.9 K/uL (0.7-4.9); Absolute Monocytes 0.6 K/uL (0.1-1.3); Absolute Neutrophil 6.6 K/uL (1.8-8.0); Basophils % 0.4 % (0-1.3); Eosinophils % 0.2 % (0-4.4); Hemoglobin 12.5 g/dL (12.0-15.0); Lymphocytes % 10.9 % (15.3-44.8); MCH 30.5 pg (27.0-35.0); MCHC 34.6 g/dL (32.0-36.0); MCV 88.3 fL (80-100); MPV 8.9 fL (7.6-11.3); Monocytes % 7.3 % (3.3-12.3); Neutrophils % 81.2 % (41.7-73.7); Platelets 159 thou/uL (152-406); RBC Red Blood Cell Count 4.08 M/uL (3.86-4.86); Red Cell Distribution Width 13.6 % (12.1-15.2)
[2024-05-30 18:12] LABS: PT Prothrombin Time 12.9 SECONDS (10.0-13.0); PTT, Activated Partial Thromb 27.5 SECONDS (24.3-36.9); Protime INR 1.14
[2024-05-30 18:24] LABS: AST/SGOT 12 U/L (15-37); Albumin 3.1 g/dL (3.4-5.0); Albumin/Globulin Ratio 0.9 (1.1-1.8); Alkaline Phosphatase 76 U/L (45-117); Anion Gap 7.5 mEq/L (5.0-15.0); BUN Blood Urea Nitrogen 7 mg/dL (7-18); Bicarbonate 25 mEq/L (21-32); Bilirubin Total 0.7 mg/dL (0.2-1.0); Globulin 3.4 g/dL (2.3-3.5); Glomerular Filtration Rate 94 ml/min (=/>90); Glucose Level 120 mg/dL (74-106); NT PRO-BNP 173 pg/mL (<450); Potassium 3.5 mEq/L (3.5-5.1); Protein, Total 6.5 g/dL (6.4-8.2); Sodium Level 136 mEq/L (136-145); Troponin High Sensitivity 3.8 pg/mL (<58.9)
[2024-05-30 18:26] LABS: ALT/SGPT < 14 U/L (13-56)
[2024-05-30 19:29] LABS: Renal Epithelial <5 /HPF (None Seen); Specific Gravity 1.016 (1.005-1.030); Sqamous Epithelial None Seen /HPF (None Seen); Transitional Epithelial <5 /HPF (None Seen); Urine Bacteria None Seen /HPF (<20); Urine Bilirubin NEGATIVE (Negative); Urine Blood Negative (Negative); Urine Clarity Turbid (Clear); Urine Color Light-Yellow (Yellow); Urine Culture Reflex Order NOT NEEDED; Urine Glucose NEGATIVE (Negative); Urine Ketones 1+ (Negative); Urine Microscopic Reflex YN ORDER UMIC; Urine Nitrite NEGATIVE (Negative); Urine Protein NEGATIVE (Negative); Urine RBC None Seen /HPF (None Seen); Urine Urobilinogen Normal (Normal); Urine WBC <5 /HPF (<5); Urine pH 7.5 (5.0-7.0)
--- NOTE | 2024-05-30 19:50 | RAD REPORT ---
EXAMINATION: Head Brain Wo Cont CLINICAL INDICATION: Female, 78 years old.confusion TECHNIQUE: Axial CT images from the skull base to the vertex without intravenous contrast. Coronal an d sagittal reformatted images were created from the data set. One or more of the following dose reduction techniques were used: Automated exposure control, adjustment of the mA and/or kV according to patient size, and/or iterative reconstruction. Unless otherwise specified, incidental findings do not require dedicated imaging follow-up. [id number]. COMPARISON: 10/01/23 FINDINGS: INTRACRANIAL: No acute intracranial hemorrhage. No hydrocephalus. No mass effect or midline shift. Se meek chronic small vessel ischemic changes.Mild cerebral atrophy. VASCULATURE: No visualized abnormalities in the arteries or dural venous sinuses. SCALP/SKULL: No calvarial fracture identified. No acute soft tissue abnormality. SINUSES: Trace paranasal sinus thickening. No significant mastoid fluid. IMPRESSION: No acute intracranial abnormality. Cerebral atrophy with chronic small vessel ischemic changes.
--- NOTE | 2024-05-30 19:58 | RAD REPORT ---
EXAMINATION: CT ABDOMEN AND PELVIS WITH CONTRAST CLINICAL INDICATION: Female, 78 years old.ABD PAIN TECHNIQUE: CT abdomen and pelvis was performed, after the administration of IV contrast, [facility]. Axial, sagittal and coronal reconstructions were obtained. One or more of the following dose reduction techniques were used: Automated exposure control, adjustment of the mA and/o r kV according to patient size, and/or iterative reconstruction. Unless otherwise specified, incidental findings do not require dedicated imaging follow-up. [id number]. COMPARISON: 12/04/2022 FINDINGS: LOWER CHEST: Dependent atelectasis. No significant pericardial effusion. UPPER GI: No significant abnormality. LIVER: Hepatic steatosis. Benign appearing and/or stable lesions are identified. No suspicious mass. GALLBLADDER/BILE DUCTS: No biliary ductal dilatation.? PANCREAS: Atrophy but no acute findings. SPLEEN: Unremarkable. ADRENALS: No adrenal masses. KIDNEYS AND URETERS: No hydronephrosis.Low density and/or too small to characterize renal lesions whi ch are statistically benign.4 mm stone right kidney. ABDOMINAL AORTA AND OTHER VESSELS: Normal caliber aorta and IVC. PERITONEUM: No abnormal free fluid. No free air. LYMPH NODES: No pathologic lymphadenopathy. ABDOMINAL WALL: Left lateral ventral hernia which has a wide neck and contains portions of colon but no complicating features. SMALL BOWEL/COLON: Small bowel has normal course and caliber. No colonic wall thickening or pericolon ic inflammatory changes.Normal appendix. Large colonic stool burden. Possible fecal impaction in the rectum. URINARY BLADDER: Underdistended but grossly unremarkable. REPRODUCTIVE ORGANS: Right adnexal cystic lesion measuring 2.1 cm.<=3 cm: No follow-up imaging recomm ended MUSCULOSKELETAL: Multilevel degenerative changes in the spine. Remote appearing L1 compression fractu re. Age-indeterminate but probably chronic L2 compression fracture with less than 20% loss of height. Grade 1 anterolisthesis of L4 and L5.. Chronic hip degenerative changes and femoral head irre gularity. ADDITIONAL FINDINGS: None. IMPRESSION: No acute findings within the abdomen or pelvis. Constipation possible fecal impaction rectum. Ancillary findings as noted above.
--- NOTE | 2024-05-30 20:46 | ER ---
Nurse's Notes [facility] Name: Sara Man Age: 78 yrs Sex: Female : 1945 Arrival Date: 05/30/2024 Time: 16:54 Bed 14 Private MD: Diagnosis: Fever;Altered mental status;Constipation Presentation: 05/30 17:12 Chief complaint: EMS states: FROM [facility] SENT TO ER FOR FEVER 99.2 AND ABD PAIN. db Coronavirus screen: Client denies travel out of the [place] in the last 14 days. At this time, the client does not indicate any symptoms associated with coronavirus-19. Ebola Screen: Patient negative for fever greater than or equal to 101.5 degrees Fahrenheit, and additional compatible Ebola Virus Disease symptoms Patient denies exposure to infectious person. Patient denies travel to an Ebola-affected area in the 21 days before illness onset. No symptoms or risks identified at this time. Initial Sepsis Screen: Does the patient meet any 2 criteria? No. Patient's initial sepsis screen is negative. Does the patient have a suspected source of infection? No. Patient's initial sepsis screen is negative. Risk Assessment: Do you want to hurt yourself or someone else? Patient reports no desire to harm self or others. Onset of symptoms was May 30, 2024. 17:12 Method Of Arrival: EMS: [facility] db 17:12 Acuity: IZABELA 3 db Triage Assessment: 17:12 General: Appears in no apparent distress. comfortable, Behavior is calm, cooperative. db Pain: Complains of pain in abdomen. Neuro:. Respiratory: Airway is patent Respiratory effort is even, unlabored, Respiratory pattern is regular, symmetrical. GI: Abdomen is flat, non-distended, Reports lower abdominal pain. Historical: - Allergies: 17:12 Codeine; db 17:12 Cymbalta; db 17:12 Erythromycin; db - PMHx: 17:12 depressive disorder; Dementia; Anxiety; GERD; Chronic pain; hemiplegia; Parkinson's db disease; - Immunization history:: Adult Immunizations unknown. - Infectious Disease History:: Denies. - Family history:: not pertinent. - Social history:: Smoking status: Patient denies any tobacco usage or history of. Screenin:01 [facility] ED Fall Risk Assessment (Adult) History of falling in the last 3 months, db including since admission No falls in past 3 months (0 pts) Confusion or Disorientation Yes (5 pts) Intoxicated or Sedated No (0 pts) Impaired Gait Yes (1 pt) Mobility Assist Device Used Yes (1 pt) Altered Elimination No (0 pt) Score/Fall Risk Level 3 or more points = High Risk Oriented to surroundings, Maintained a safe environment, Assessed \T\ reinforced patient's understanding of fall precautions, Hourly rounding (assess needs \T\ fall precautionary measures) done. Abuse screen: Denies threats or abuse. Denies injuries from another. Nutritional screening: No deficits noted. Tuberculosis screening: No symptoms or risk factors identified. Assessment: 17:18 Reassessment: SEE TRIAGE FOR INITIAL ASSESSMENT. db 21:10 GI: Bowel sounds diminished in right lower quadrant and left lower quadrant. dd2 21:10 GI: Abd is soft and non tender X 4 quads. Abd is non tender X 4 quads. dd2 Vital Signs: 17:12 BP 134 / 58; Pulse 89; Resp 20; Temp 99.2; Pulse Ox 95% on 4 lpm NC; db 17:19 BP 133 / 91; Pulse 85; Resp 20; Temp 99.9; Pulse Ox 98% ; rk3 17:35 BP 114 / 75; Pulse 88; Resp 20; Temp 99.8; Pulse Ox 98% ; db 18:30 BP 106 / 65; Pulse 90; Resp 24; Pulse Ox 95% on NC; db 19:35 BP 108 / 69; Pulse 92; Resp 16; Pulse Ox 98% ; dd2 20:30 BP 110 / 61; Pulse 93; Resp 17; Pulse Ox 97% ; dd2 22:00 BP 124 / 57; Pulse 94; Resp 16; Pulse Ox 97% ; dd2 23:00 BP 116 / 63; Pulse 89; Resp 16; Pulse Ox 98% ; dd2 03/06 00:10 BP 119 / 62; Pulse 91; Resp 15; Pulse Ox 97% ; dd2 ED Course: 03 16:56 Patient arrived in ED. ll1 16:56 Alvaro Gauthier MD is Attending Physician. rt 16:58 Radiology exam delayed due to lab results not completed at this time. (BUN/Creatinine) jc4 IV insertion attempt and/or patient not having appropriate IV at this time. 17:12 Arm band placed on Patient placed in an exam room. db 17:14 Ekaterina Villavicencio, RN is Primary Nurse. db 17:17 Triage completed. db 17:36 First set of blood cultures drawn. db 17:44 Chest Single View XRAY In Process Unspecified. EDMS 17:45 EKG done. db 17:55 Initial lab(s) drawn, by me, sent to lab. Second set of blood cultures drawn. Inserted db saline lock: 22 gauge in right wrist, using aseptic technique. Blood collected. Flushed with 10 mL NS. 18:02 Patient has correct armband on for positive identification. Bed in low position. Call db light in reach. Side rails up X2. Client placed on continuous cardiac and pulse oximetry monitoring. NIBP monitoring applied. interlibrary loan specialist on. Pulse ox on. NIBP on. Warm blanket given. 19:21 Primary Nurse role handed off by Ekaterina Villavicencio, RN rv1 19:31 CT Abd/Pelvis - IV Contrast Only In Process Unspecified. EDMS 19:31 CT Head Brain wo Cont In Process Unspecified. EDMS 20:45 Young Molina MD is Hospitalizing Provider. rt 21:13 ELSIE JEFF, RAMIN is Primary Nurse. dd2 03 00:35 No provider procedures requiring assistance completed. dd2 00:39 Provided Education on:. dd2 00:39 Provided Education on: family educated on admission. dd2 00:39 Patient admitted, IV remains in place. dd2 Administered Medications: 05/30 23:11 Drug: NS 0.9% IV 1000 ml IV at 1 bolus Per protocol; to be given as a bolus over 60 dd2 minutes Route: IV; Rate: 1 bolus; Site: right hand; 03 00:35 Follow up: IV Status: Completed infusion; IV Intake: 1000ml dd2 05/30 23:12 Drug: Lactulose PO 30 grams 45 ml PO once Volume: 45 ml; Route: PO; dd2 23:12 Drug: Fleet Enema AL 133 ml AL once; may repeat once Route: AL; dd2 Medication: 17:18 VIS not applicable for this client. db Intake: 05/31 00:35 IV: 1000ml; Total: 1000ml. dd2 Outcome: 05/30 20:45 Decision to Hospitalize by Provider. rt 03 00:39 Admitted to Med/surg accompanied by tech, via stretcher, with oxygen, with chart, dd2 Condition: stable Instructed on the need for admit, Demonstrated understanding of instructions, 02:35 Patient left the ED. vc1 Signatures: Dispatcher [employer] Sonu Choudhury, RN RN ll1 Laurel Rios RN RN vc1 Ekaterina Villavicencio RN RN db Alvaro Gauthier MD MD rt Gem Shannon rv1 David Araiza jc4 ELSIE JEFF RN RN dd2 Jack Reed rk3 Corrections: (The following items were deleted from the chart) 05/30 17:18 17:12 GI: Abdomen is flat, non-distended, db db
--- NOTE | 2024-05-30 20:46 | EDPHYS ---
Physician Documentation [facility] Name: Sara Man Age: 78 yrs Sex: Female : 1945 Arrival Date: 05/30/2024 Time: 16:54 Bed 14 Private MD: ED Physician Alvaro Gauthier HPI: 05/30 17:09 This 78 yrs old Female presents to ER via Unassigned with complaints of fever. rt 17:09 Patient presents to the ED from a senior living with fever, was given Tylenol prior to rt arrival. Reportedly has some difficulty breathing, oxygen saturation dropped to 90%, no baseline oxygen requirement. Reports having nausea with mild abdominal pain. Denies any acute complaints at this time, symptoms are moderate in severity, no other aggravating alleviating factors. Historical: - Allergies: 17:12 Codeine; db 17:12 Cymbalta; db 17:12 Erythromycin; db - PMHx: 17:12 depressive disorder; Dementia; Anxiety; GERD; Chronic pain; hemiplegia; Parkinson's db disease; - Immunization history:: Adult Immunizations unknown. - Infectious Disease History:: Denies. - Family history:: not pertinent. - Social history:: Smoking status: Patient denies any tobacco usage or history of. ROS: 17:09 Cardiovascular: Negative for chest pain, palpitations, and edema, Respiratory: Negative rt for shortness of breath, cough, wheezing, and pleuritic chest pain, MS/Extremity: Negative for injury and deformity, Skin: Negative for injury, rash, and discoloration, Neuro: Negative for headache, weakness, numbness, tingling, and seizure, 17:09 Constitutional: Positive for fever, Negative for malaise, 17:09 Abdomen/GI: Positive for abdominal pain, nausea, Exam: 17:09 Constitutional: This is a well developed, well nourished patient who is awake, alert, rt and in no acute distress. Head/Face: Normocephalic, atraumatic. Chest/axilla: Normal chest wall appearance and motion. Nontender with no deformity. No lesions are appreciated. Cardiovascular: Regular rate and rhythm with a normal S1 and S2. No gallops, murmurs, or rubs. Normal PMI, no JVD. No pulse deficits. Respiratory: Lungs have equal breath sounds bilaterally, clear to auscultation and percussion. No rales, rhonchi or wheezes noted. No increased work of breathing, no retractions or nasal flaring. Abdomen/GI: Soft, non-tender, with normal bowel sounds. No distension or tympany. No guarding or rebound. No evidence of tenderness throughout. Skin: Warm, dry with normal turgor. Normal color with no rashes, no lesions, and no evidence of cellulitis. MS/ Extremity: Pulses equal, no cyanosis. Neurovascular intact. Full, normal range of motion. Neuro: Awake and alert, GCS 15, oriented to person, place, time, and situation. Cranial nerves II-XII grossly intact. Motor strength 5/5 in all extremities. Sensory grossly intact. Cerebellar exam normal. Normal gait. 18:25 ECG was reviewed by the Attending Physician. rt Vital Signs: 17:12 BP 134 / 58; Pulse 89; Resp 20; Temp 99.2; Pulse Ox 95% on 4 lpm NC; db 17:19 BP 133 / 91; Pulse 85; Resp 20; Temp 99.9; Pulse Ox 98% ; rk3 17:35 BP 114 / 75; Pulse 88; Resp 20; Temp 99.8; Pulse Ox 98% ; db 18:30 BP 106 / 65; Pulse 90; Resp 24; Pulse Ox 95% on NC; db 19:35 BP 108 / 69; Pulse 92; Resp 16; Pulse Ox 98% ; dd2 20:30 BP 110 / 61; Pulse 93; Resp 17; Pulse Ox 97% ; dd2 22:00 BP 124 / 57; Pulse 94; Resp 16; Pulse Ox 97% ; dd2 23:00 BP 116 / 63; Pulse 89; Resp 16; Pulse Ox 98% ; dd2 0306 00:10 BP 119 / 62; Pulse 91; Resp 15; Pulse Ox 97% ; dd2 MDM: 03 16:56 Medical Screening Exam initiated rt 20:46 Differential Diagnosis Fever, pneumonia, UTI, altered mental status, constipation. Data rt reviewed: vital signs, nurses notes, lab test result(s), EKG, radiologic studies. Consideration of Admission/Observation Patient was admitted/placed on observation. Management of patient was discussed with the following: Hospitalist: Agrees to admit. I considered the following discharge prescriptions or medication management in the emergency department Medications were administered in the Emergency Department. See MAR. Independent interpretation of the following test(s) in the Emergency Department CT Scan: My interpretation is No intracranial hemorrhage seen on interpretation of CT scan images. Care significantly affected by the following chronic conditions: Dementia. Counseling: I had a detailed discussion with the patient and/or guardian regarding the historical points, exam findings, and any diagnostic results supporting the discharge/admit diagnosis, lab results, radiology results, the need for further work-up and treatment in the hospital. Response to treatment: There is no appreciated change of the patient's symptoms at this time. 05/30 16:57 Order name: Blood Culture Adult (2) rt 05/30 16:57 Order name: CBC with Diff; Complete Time: 19:31 rt 05/30 16:57 Order name: CMP; Complete Time: 19:31 rt 05/30 16:57 Order name: Lactate w/ 2H reflex if indic.; Complete Time: 19:31 rt 05/30 16:57 Order name: Protime (+inr); Complete Time: 19:31 rt 05/30 16:57 Order name: Ptt, Activated; Complete Time: 19:31 rt 05/30 16:57 Order name: Urinalysis w/ reflexes; Complete Time: 19:31 rt 05/30 16:57 Order name: BNP; Complete Time: 19:31 rt 05/30 16:57 Order name: Troponin High Sensitivity; Complete Time: 19:31 rt 05/30 23:20 Order name: T4 Free EDMS 05/30 23:20 Order name: Thyroid Stimulating Hormone EDMS 05/30 23:20 Order name: Basic Metabolic Panel EDMS 05/30 23:20 Order name: Basic Metabolic Panel EDMS 05/30 23:20 Order name: CBC with Automated Diff EDMS 05/30 23:20 Order name: CBC with Automated Diff EDMS 05/30 23:20 Order name: CBC with Automated Diff EDMS 05/30 23:25 Order name: High Sensitivity-CRP EDMS 05/30 23:25 Order name: Procalcitonin EDMS 05/30 23:41 Order name: ABG Arterial Blood Gas EDMS 05/30 16:57 Order name: Chest Single View XRAY; Complete Time: 19:31 rt 05/30 16:57 Order name: CT Abd/Pelvis - IV Contrast Only; Complete Time: 20:01 rt 05/30 19:23 Order name: CT Head Brain wo Cont; Complete Time: 20:01 rt 05/30 16:57 Order name: EKG; Complete Time: 16:57 rt 05/30 16:57 Order name: Accucheck; Complete Time: 19:17 rt 05/30 16:57 Order name: Cardiac monitoring; Complete Time: 19:17 rt 05/30 16:57 Order name: EKG - Nurse/Tech; Complete Time: 19:17 rt 05/30 16:57 Order name: IV Saline Lock - Large Bore; Complete Time: 19:17 rt 03 16:57 Order name: Labs collected and sent; Complete Time: 19:18 rt 03 16:57 Order name: O2 Per Protocol; Complete Time: 19:18 rt 05/30 16:57 Order name: O2 Sat Monitoring; Complete Time: 19:17 rt 05/30 16:57 Order name: Vital Signs; Complete Time: 19:17 rt EC:25 Rate is 104 beats/min. Rhythm is regular, Sinus tachycardia with No ectopy. QRS [place] is rt Normal. [place] interval is normal. QRS interval is normal. QT interval is normal. No Q waves. No ST changes noted. Interpreted by me. Administered Medications: 23:11 Drug: NS 0.9% IV 1000 ml IV at 1 bolus Per protocol; to be given as a bolus over 60 dd2 minutes Route: IV; Rate: 1 bolus; Site: right hand; 05/31 00:35 Follow up: IV Status: Completed infusion; IV Intake: 1000ml dd2 05/30 23:12 Drug: Lactulose PO 30 grams 45 ml PO once Volume: 45 ml; Route: PO; dd2 23:12 Drug: Fleet Enema NJ 133 ml NJ once; may repeat once Route: NJ; dd2 Disposition Summary: 05/30/24 20:45 Hospitalization Ordered Notes: Hospitalization Status: Observation rt Provider: Young Molina rt Location: Telemetry/MedSurg (observation) rt Condition: Stable rt Problem: new rt Symptoms: are unchanged rt Bed/Room Type: Standard rt Room Assignment: 403(05/30/24 23:29) vc1 Diagnosis - Fever rt - Altered mental status rt - Constipation rt Forms: - Medication Reconciliation Form rt - SBAR form rt - Leadership Thank You Letter rt Signatures: Dispatcher [facility] Laurel Santillan RN RN vc1 Ekaterina Villavicencio RN RN db Alvaro Gauthier MD MD rt ELSIE JEFF RN RN dd2 Corrections: (The following items were deleted from the chart) 19:24 19:24 Head Brain Wo [id number].BRZ ordered. EDMS EDMS : 23:20 Urinalysis w/ reflexes ordered. EDMS EDMS : 20:45 rt vc1
[2024-05-30] MEDS ORDERED: NA CHLORIDE 0.9% 1,000 ML ONE (23:05)
[2024-05-30] MEDS ORDERED: FLEET ENEMA ADULT PR ONE (23:05)
[2024-05-30] MEDS ORDERED: LACTULOSE 20 GM/30 ML UCUP ONE (23:06)
[2024-05-30] MEDS ORDERED: ONDANSETRON 4 MG/2 ML VIAL IV PRN (23:09)
--- NOTE | 2024-05-30 23:28 | P.HP ---
Certification for Inpatient With expected LOS: >2 Midnights Practitioner: I am a practitioner with admitting privileges, knowledge of patient current condition, hospital course, and medical plan of care. Services: Services provided to patient in accordance with Admission requirements found in Title 42 Section 412.3 of the Code of Federal Regulations Patient History Date of Service: 05/30/24 History of Present Illness: This is a 78-year-old female with a past medical history dementia, Parkinson, chronic pain, GERD who presented with acute metabolic encephalopathy alongside fever. Patient is altered and unable to obtain history. Her son is at bedside. He states she began having fever on Tuesday. Associated symptoms include vomiting. She was given IV fluids in the halfway. Her condition failed to improve and she was taken to our emergency room for further evaluation in the ED she was given Tylenol and her oxygen saturation dropped to 90%. She is placed on 2 L nasal cannula. Furthermore prior to her vomiting it was stated she was having some mild abdominal pain. Allergies codeine Allergy (Verified 12/04/22 18:27) Unknown Erythromycin Allergy (Uncoded 09/15/16 23:55) Unknown Home Medications: Aspirin Chewable [Aspirin Chewable*] 1 tab PO DAILY 12/04/22 Baclofen 10 mg PO QID 12/04/22 Calcium Carbonate/Vitamin D3 [Oscal 500 + Vit D 200 Iu Tab*] 1 tab PO DAILY 12/04/22 Carbidopa/Levodopa [Carbidopa-Levodopa 25-100 Tab] 1 tab PO TIDWM 12/04/22 Dextran/Hypromellose/Glycerin [Artificial Tears 0.1-0.2-0.3%] 1 drop EACH EYE Q6H PRN 12/04/22 Ondansetron [Zofran (Odt)*] 1 tab PO Q8HR PRN 12/04/22 Pentazocine HCl/Naloxone HCl [Pentazocine-Naloxone Tablet] 1 tab PO BID 12/04/22 Potassium Chloride 20 meq PO BID 12/04/22 Sennosides/Docusate Sodium [Docuzen 8.6-50 mg Tablet] 2 tab PO DAILY 12/04/22 Tramadol HCl [Ultram] 50 mg PO QID 12/04/22 Famotidine [Pepcid*] 20 mg PO DAILY 01/21/23 Furosemide [Lasix*] 60 mg PO TID 01/21/23 Levothyroxine Sodium 25 mcg PO DAILY 01/21/23 - Past Medical/Surgical History Diabetic: No -: GERD -: Parkinson's disease -: Dementia -: Impression and anxiety -: Chronic pain Psychosocial/ Personal History: Stays at [employer] Review of Systems is unable to be obtained Physical Examination - Physical Exam General: Demented HEENT: Normocephalic Neck: Supple Respiratory: Clear to auscultation bilaterally Cardiovascular: No edema Capillary refill: <2 Seconds Gastrointestinal: Normal bowel sounds Musculoskeletal: No clubbing Integumentary: No rashes Neurological: Dementia - Studies Laboratory Data (last 24 hrs) 05/30/24 05/30/24 05/30/24 17:55 17:55 17:55 WBC 8.10 Hgb 12.5 Hct 36.0 Plt Count 159 PT 12.9 H INR 1.14 APTT 27.5 Sodium 136 Potassium 3.5 BUN 7 Creatinine 0.55 Glucose 120 H Total Bilirubin 0.7 AST 12 L ALT < 14 Alkaline Phosphatase 76 Assessment and Plan - Plan Acute metabolic encephalopathy Fever Hypoxia Parkinson's disease Chronic pain GERD Anxiety Admit to [facility] Was given lactulose and Fleet enema in the ED CRP, procalcitonin, and blood cultures pending UA without significant finding Start Zosyn due to vomiting and abdominal pain Continue 4 L nasal cannula and wean as tolerated Head CT without acute finding DVT prophylaxis with Lovenox - Advance Directives Does patient have a Living Will: No Does patient have a Durable POA for Healthcare: No
[2024-05-31 00:45] LABS: Blood Gas Oxyhemoglobin 92.5 % (94-97); Blood O2 Saturation 94.9 % (92-98.5)
[2024-05-31 00:46] LABS: Arterial Blood Carboxyhemoglob 0.8 % (0-1.5)
[2024-05-31 00:47] LABS: Blood Gas THB 11.7 g/dl (12-18)
[2024-05-31 00:59] LABS: Thyroid Stimulating Hormone 1.11 uIU/mL (0.358-3.740)
[2024-05-31] MEDS: NALOXONE 0.4 MG/ML VIAL ONE (02:30)
[2024-05-31] MEDS: NALOXONE 0.4 MG/ML VIAL IV ONE (02:37)
[2024-05-31] MEDS: NA CHLORIDE 0.9% 1,000 ML IV SCH (02:38)
[2024-05-31] MEDS: PIPER TAZO 3.375 GM in NA CHLORIDE 0.9% 100 ML IV ONE (02:38)
[2024-05-31] MEDS: ACETAMINOPHEN 650MG/RECT SUPP PR PRN (02:54)
[2024-05-31 06:50] LABS: Absolute Lymphocytes (CBC) 0.8 K/uL (0.7-4.9); Absolute Monocytes 0.5 K/uL (0.1-1.3); Absolute Neutrophil 4.8 K/uL (1.8-8.0); Basophils % 0.2 % (0-1.3); Eosinophils % 0.2 % (0-4.4); Hematocrit 33.3 % (36.0-45.0); Hemoglobin 11.5 g/dL (12.0-15.0); Lymphocytes % 13.1 % (15.3-44.8); MCH 30.8 pg (27.0-35.0); MCHC 34.5 g/dL (32.0-36.0); MCV 89.1 fL (80-100); MPV 8.8 fL (7.6-11.3); Monocytes % 8.7 % (3.3-12.3); Neutrophils % 77.8 % (41.7-73.7); Platelets 144 thou/uL (152-406); RBC Red Blood Cell Count 3.74 M/uL (3.86-4.86); Red Cell Distribution Width 13.3 % (12.1-15.2)
[2024-05-31 07:05] LABS: Anion Gap 8.4 mEq/L (5.0-15.0); Potassium 3.4 mEq/L (3.5-5.1)
[2024-05-31] MEDS: PIPER TAZO 3.375 GM in NA CHLORIDE 0.9% 100 ML IV SCH (08:52)
[2024-05-31] MEDS: ENOXAPARIN 40 MG/0.4 ML SQ SCH (09:35)
[2024-05-31 09:37] LABS: Influenza A Ag Negative; Influenza B Ag Negative; SARS-CoV-2 Antigen Rapid Res Negative (Negative)
--- NOTE | 2024-05-31 15:32 | P.PN ---
Subjective Date of Service: 05/31/24 Chief Complaint: Confusion Patient is more awake today and interactive. Patient had low-grade fever last night. Physical Examination - Vital Signs Temperature: 97.9 F Blood Pressure: 121/67 Pulse: 90 Respirations: 16 Pulse Ox (%): 99 - Studies Laboratory Data (last 24 hrs) 05/30/24 05/30/24 05/30/24 17:55 17:55 17:55 WBC 8.10 Hgb 12.5 Hct 36.0 Plt Count 159 PT 12.9 H INR 1.14 APTT 27.5 Sodium 136 Potassium 3.5 BUN 7 Creatinine 0.55 Glucose 120 H Total Bilirubin 0.7 AST 12 L ALT < 14 Alkaline Phosphatase 76 Assessment And Plan - Plan Physical examination General: Oriented x 1, NAD. HEENT: Conjunctiva not pale, anicteric sclera Neck: Supple, no elevated JVD Heart: Heart sounds 1 and 2 normal, regular rhythm, normal rate, no pedal edema Lungs: Clear to auscultation bilaterally, adequate breath sounds bilaterally, no rhonchi or crackles. Abdomen: Soft, nondistended, nontender, normal bowel sounds. Extremities: No tenderness, no deformity Skin: Normal skin turgor, no rash, no nodules or ulcers. Neuro: Patient moves both upper extremities. Normal speech. Psychiatry: No agitation. Diagnosis Acute metabolic encephalopathy Fever Parkinson's disease Functional constipation Chronic pain GERD Anxiety Plan Acute metabolic encephalopathy Fever UA negative for UTI. Chest x-ray is unremarkable. CT abdomen pelvis unremarkable except constipation. Flu and COVID screening are negative. Source of fever is unknown, however suspect most likely viral infection given associated abdominal pain. Empiric antibiotics Supportive measures with IV hydration. No associated leukocytosis. Hold psychoactive medications. Neurochecks. Functional constipation Status post lactulose and enema in the ED. Constipation prophylaxis with Colace. Parkinson's disease Patient is not mobile at baseline. Continue Sinemet DVT prophylaxis: Lovenox Advanced directive: Full code
[2024-05-31] MEDS: CARBIDOPA/LEVODOPA 25/100 TAB PO SCH (17:20)
[2024-05-31] MEDS: VANCOMYCIN 1.25 GM in NA CHLORIDE 0.9% 250 ML IVPB ONE (20:37)
[2024-05-31] MEDS ORDERED: VANCOMYCIN 1 GM in NA CHLORIDE 0.9% 250 ML IVPB ONE (21:00)
[2024-06-01 02:43] VITALS: BMI 22.4
[2024-06-01] MEDS: LEVOTHYROXINE SOD 0.025 MG TAB PO SCH (05:31)
[2024-06-01 05:57] LABS: Absolute Lymphocytes (CBC) 0.3 K/uL (0.7-4.9); Absolute Monocytes 0.6 K/uL (0.1-1.3); Absolute Neutrophil 12.7 K/uL (1.8-8.0); Basophils % 0.1 % (0-1.3); Eosinophils % 0.2 % (0-4.4); Hematocrit 33.9 % (36.0-45.0); Hemoglobin 11.7 g/dL (12.0-15.0); MCH 30.6 pg (27.0-35.0); MCHC 34.6 g/dL (32.0-36.0); MCV 88.3 fL (80-100); MPV 9.5 fL (7.6-11.3); Monocytes % 4.3 % (3.3-12.3); Neutrophils % 93.4 % (41.7-73.7); Platelets 149 thou/uL (152-406); RBC Red Blood Cell Count 3.83 M/uL (3.86-4.86); Red Cell Distribution Width 13.2 % (12.1-15.2)
[2024-06-01 07:33] LABS: Band Neutrophils 32 % (0-1); Blood Morphology Comment NOT SEEN (NOT SEEN); Differential Total Cells Count 100; Lymphocytes 4 % (15-42); Monocytes 0 % (0-10); Platelet Estimate ADEQ; Reactive Lymphocytes 1 %; Segmented Neutrophils 63 % (40-80)
[2024-06-01] MEDS ORDERED: TRAMADOL HCL 50 MG TAB PO PRN (15:27)
--- NOTE | 2024-06-01 15:46 | P.PN ---
Subjective Date of Service: 06/01/24 Chief Complaint: Confusion Patient is awake and interactive, looks much better. No fever over the past 24 hours. Patient is eating dysphagia diet. Physical Examination - Vital Signs Temperature: 98 F Blood Pressure: 123/62 Pulse: 70 Respirations: 16 Pulse Ox (%): 100 Assessment And Plan - Plan Physical examination General: Awake, oriented x 1, NAD. HEENT: Conjunctiva not pale, anicteric sclera Neck: Supple, no elevated JVD Heart: Heart sounds 1 and 2 normal, regular rhythm, normal rate, no pedal edema Lungs: Clear to auscultation bilaterally, adequate breath sounds bilaterally, no rhonchi or crackles. Abdomen: Soft, nondistended, nontender, normal bowel sounds. Extremities: No tenderness, no deformity Skin: Normal skin turgor, no rash, no nodules or ulcers. Neuro: No focal motor deficit, normal speech. Psychiatry: Normal mood. No agitation Diagnosis Acute metabolic encephalopathy Fever Parkinson's disease Functional constipation Chronic pain GERD Anxiety Plan Acute metabolic encephalopathy Fever UA negative for UTI. Chest x-ray is unremarkable. CT abdomen pelvis unremarkable except constipation. Flu and COVID screening are negative. Source of fever is unknown, however suspect most likely viral infection given associated abdominal pain. Empiric antibiotics Supportive measures with IV hydration. No associated leukocytosis. Hold psychoactive medications. Neurochecks. Functional constipation Status post lactulose and enema in the ED. Constipation prophylaxis with Colace. Parkinson's disease Patient is not mobile at baseline. Continue Sinemet. 06/01 1 out of 4 blood culture showing gram-positive cocci on Gram stain. Overall no growth to all 4 bottles in 24 hours. Continue antibiotics for now Waiting for 48, culture to discontinue antibiotics if no growth. Patient lost her IV access. Will change IV antibiotics to oral. Resume home medications. Dysphagia diet resumed Continue Sinemet for Parkinson disease. DVT prophylaxis: Lovenox Advanced directive: Full code
[2024-06-01] MEDS: CALCIUM CARB 500MG/VIT D 200 IU TAB PO SCH (16:46)
[2024-06-01] MEDS: ASPIRIN 81 MG CHEWABLE TABLET PO SCH (16:46)
[2024-06-01] MEDS: BACLOFEN 10 MG TAB PO SCH (18:33)
[2024-06-01] MEDS: TRAMADOL HCL 50 MG TAB PO SCH (20:52)
[2024-06-01] MEDS: levoFLOXacin 750 MG TAB PO SCH (20:53)
[2024-06-02 06:58] LABS: Absolute Eosinophils 0.1 K/uL (0-0.5); Absolute Lymphocytes (CBC) 0.7 K/uL (0.7-4.9); Absolute Monocytes 0.4 K/uL (0.1-1.3); Basophils % 0.2 % (0-1.3); Hematocrit 33.4 % (36.0-45.0); Hemoglobin 11.3 g/dL (12.0-15.0); Lymphocytes % 8.7 % (15.3-44.8); MCH 30.1 pg (27.0-35.0); MCHC 33.7 g/dL (32.0-36.0); MCV 89.1 fL (80-100); MPV 9.1 fL (7.6-11.3); Monocytes % 5.1 % (3.3-12.3); Platelets 165 thou/uL (152-406); RBC Red Blood Cell Count 3.75 M/uL (3.86-4.86); Red Cell Distribution Width 13.5 % (12.1-15.2)
[2024-06-02] MEDS ORDERED: levoFLOXacin 750 MG TAB PO SCH (09:00)
[2024-06-02] MEDS: FAMOTIDINE 20 MG TAB PO SCH (09:35)
[2024-06-02] MEDS: POTASSIUM CL SA 10 MEQ TAB PO SCH (09:36)
[2024-06-02] MEDS: POTASSIUM 25 MEQ EFFERV TAB PO ONE ×2 (12:08→17:05)
--- NOTE | 2024-06-02 16:21 | P.DS ---
Admission Date: 05/30/24 Discharge Date: 06/02/24 Disposition: TRANSFER TO LONG-TERM Discharge Condition: FAIR Reason for Admission: Confusion Brief History of Present Illness: This is a 78-year-old female with a past medical history dementia, Parkinson, chronic pain, GERD who presented with acute metabolic encephalopathy alongside fever. Patient was altered and unable to obtain history. Her son is at bedside. He states she began having fever with associated symptoms include vomiting. [facility] Her condition failed to improve and she was taken to our emergency room for further evaluation in the ED she was given Tylenol and her oxygen saturation dropped to 90%. She was placed on 2 L nasal cannula. Evaluation in the ED revealed hypokalemia and constipation. Patient was hospitalized for further management. Hospital Course: Diagnosis Acute metabolic encephalopathy Fever Parkinson's disease Functional constipation Chronic pain GERD Anxiety Patient admitted to the medical floor with the following medical problems addressed: Acute metabolic encephalopathy Fever UA negative for UTI. Chest x-ray is unremarkable. CT abdomen pelvis unremarkable except constipation. Flu and COVID screening were negative. Source of fever is unknown, however suspect most likely viral infection given associated abdominal pain. Patient treated with empiric antibiotics and IV hydration No associated leukocytosis. Held psychoactive medications and resume them after her mental status improved. Patient has improved to baseline, no fever over the past 48 hours. 1 out of 4 bottles grew known beta-hemolytic strep which is likely a skin contaminant. She is deemed stable for discharge. Patient is discharged with 7 more days of Levaquin. Functional constipation Status post lactulose and enema in the ED. Constipation prophylaxis with Colace. Parkinson's disease Patient is not mobile at baseline. Continued Sinemet. Vital Signs/Physical Exam: Temp Pulse Resp BP Pulse Ox 98.2 F 94 H 18 129/66 96 06/02/24 16:00 06/02/24 16:00 06/02/24 16:00 06/02/24 16:00 06/02/24 16:00 General: In no apparent distress, Other (Awake) HEENT: PERRLA, Sclerae nonicteric Neck: Supple, JVD not distended Respiratory: Clear to auscultation bilaterally, Normal air movement Cardiovascular: Regular rate/rhythm, Normal S1 S2 Gastrointestinal: Normal bowel sounds, Soft and benign, Non-distended Musculoskeletal: No swelling Integumentary: No cyanosis Neurological: Normal strength at 5/5 x4 extr Laboratory Data at Discharge: WBC 8.20 thou/uL (4.3-10.9) 06/02/24 06:25 Hgb 11.3 g/dL (12.0-15.0) L 06/02/24 06:25 Hct 33.4 % (36.0-45.0) L 06/02/24 06:25 Plt Count 165 thou/uL (152-406) 06/02/24 06:25 PT 12.9 SECONDS (10.0-13.0) H 05/30/24 17:55 INR 1.14 05/30/24 17:55 APTT 27.5 SECONDS (24.3-36.9) 05/30/24 17:55 Sodium 142 mEq/L (136-145) 06/02/24 06:25 Potassium 3.1 mEq/L (3.5-5.1) L 06/02/24 11:47 BUN 9 mg/dL (7-18) 06/02/24 06:25 Creatinine 0.50 mg/dL (0.55-1.02) L 06/02/24 06:25 Glucose 103 mg/dL (74-106) 06/02/24 06:25 Total Bilirubin 0.7 mg/dL (0.2-1.0) 05/30/24 17:55 AST 12 U/L (15-37) L 05/30/24 17:55 ALT < 14 U/L (13-56) 05/30/24 17:55 Alkaline Phosphatase 76 U/L (45-117) 05/30/24 17:55 Home Medications: Aspirin Chewable [Aspirin Chewable*] 1 tab PO DAILY 12/04/22 Baclofen 10 mg PO QID 12/04/22 Calcium Carbonate/Vitamin D3 [Oscal 500 + Vit D 200 Iu Tab*] 1 tab PO DAILY 12/18 Carbidopa/Levodopa [Carbidopa-Levodopa 25-100 Tab] 1 tab PO TIDWM 12/04/22 Tramadol HCl [Ultram] 50 mg PO BID PRN 12/04/22 Famotidine [Pepcid*] 20 mg PO DAILY 01/21/23 Levothyroxine Sodium 25 mcg PO DAILY 01/21/23 levoFLOXacin [Levaquin*] 750 mg PO DAILY #5 tab 03/08/25 New Medications: levoFLOXacin [Levaquin*] 750 mg PO DAILY #5 tab Diet: Pureed Activity: Fall precautions Followup: Anabella Guerrero MD [Primary Care Provider] - 1-2 Weeks Time spent managing pt's care (in minutes): 34
[2024-06-02 21:00] VITALS: BP 142/63; TEMP 99.3
[2024-06-02 22:10] VITALS: O2SAT 98
--- NOTE | 2024-06-05 11:27 | EKG ---
Test Date: 2024-05-30 Test Time: 17:42:15 Customer Security Clerk: SERGEI MEASUREMENT RESULTS: Intervals: Rate: 104 CO: 150 QRSD: 94 QT: 404 QTc: 531 Sheldon: P: 64 CO: 150 QRS: -20 T: -10 INTERPRETIVE STATEMENTS: Undetermined rhythm Low voltage QRS Cannot rule out Anterior infarct, age undetermined Abnormal ECG Compared to ECG 01/21/2023 11:57:00 Sinus tachycardia no longer present Myocardial infarct finding still present Electronically Signed On 06-05-24 11:09:24 CDT by Zaki Will
== END 2024-06-02 22:29 | DRG 71 ==
LOC: ER 16:54 → ERHOLD 23:09 → 4TH 05-31 00:46
PROVIDERS: ADMIT Family Medicine; ATTEND Internal Medicine
PROC: 4A033R1 Measurement of Arterial Saturation, Peripheral, Percutaneous Approach (ICD-10-PCS; principal; 2024-05-30)
DX: G93.41 Metabolic encephalopathy (principal); F03.94 Unspecified dementia, unspecified severity, with anxiety; K59.04 Chronic idiopathic constipation; G89.29 Other chronic pain; E87.6 Hypokalemia; K21.9 Gastro-esophageal reflux disease without esophagitis; G20.A1 Parkinson's disease without dyskinesia, without mention of fluctuations; B34.9 Viral infection, unspecified; Z88.5 Allergy status to narcotic agent; Z88.1 Allergy status to other antibiotic agents; Z88.8 Allergy status to other drugs, medicaments and biological substances; Z11.52 Encounter for screening for COVID-19; Z79.82 Long term (current) use of aspirin; Z79.890 Hormone replacement therapy; Z79.899 Other long term (current) drug therapy
CPT/HCPCS: 36415; 70450; 71045; 74177; 80048; 80053; 81001; 82805; 82947; 83605; 83880; 84132; 84145; 84439; 84443; 84484; 85025; 85610; 85730; 86140; 87040; 87077; 87186; 87205; 87428; 93005; 94760; 96360; 99285; J1650; J2310; J2543; J3370; J7030; J7050; Q9967